=== PATIENT | female | born 1930 | race Hispanic/Latino ===

== ENCOUNTER 2017-02-27 15:25 | Inpatient (IN) | payer MEDICARE ==
--- NOTE | 2017-02-27 16:01 | ED PDOC ---
Arrival/HPI - General Chief Complaint: Back Pain Time Seen by Provider: 02/27/17 15:33 Historian: Patient - History of Present Illness Narrative History of Present Illness (Text): 02/27/17 15:51 A 87 year old female, whose past medical history includes CHF, presents to the emergency department complaining of right flank pain starting today. Patient denies of any trauma, fever, cough, chest pain, shortness of breath, or any other complaints. Also, patient mentions she intaking Warfarin medication. Past Medical History - Provider Review Nursing Documentation Reviewed: Yes - Infectious Disease Hx of Infectious Diseases: None - Reproductive Menopause: No - Cardiac Hx Cardiac Disorders: Yes Hx Cardiac Arrhythmia: Yes (Afib) Hx Congestive Heart Failure: Yes Hx Hypertension: Yes - Pulmonary Hx Respiratory Disorders: Yes Hx Chronic Obstructive Pulmonary Disease (COPD): Yes Hx Pneumonia: Yes - Neurological Hx Neurological Disorder: No - HEENT Hx HEENT Disorder: No - Renal Hx Renal Disorder: No - Endocrine/Metabolic Hx Endocrine Disorders: No - Hematological/Oncological Hx Blood Disorders: No Hx Leukemia: Yes - Integumentary Hx Dermatological Disorder: No - Musculoskeletal/Rheumatological Hx Musculoskeletal Disorders: Yes Hx Falls: Yes Hx Fractures: Yes (R elbow) - Gastrointestinal Hx Gastrointestinal Disorders: No - Genitourinary/Gynecological Hx Genitourinary Disorders: No - Psychiatric Hx Psychophysiologic Disorder: No Hx Substance Use: No - Surgical History Hx Appendectomy: Yes Hx Cholecystectomy: Yes Other/Comment: tonsillectomy - Suicidal Assessment Feels Threatened In Home Enviroment: No Family/Social History - Physician Review Nursing Documentation Reviewed: Yes Family/Social History: No Known Family HX Smoking Status: Never Smoked Hx Alcohol Use: No Hx Substance Use: No Allergies/Home Meds Allergies/Adverse Reactions: Allergies No Known Allergies Allergy (Verified 02/27/17 17:49) Home Medications: Home Meds Medication Instructions Recorded Confirmed Verapamil [Verapamil HCl] 120 mg PO TID 10/30/11 02/27/17 Warfarin [Coumadin] 5 mg PO DAILY 10/30/11 02/27/17 Albuterol Sulfate [Proair Hfa] 2 inh INH QID 07/02/15 02/27/17 Cholecalciferol (Vitamin D3) 1 tab PO DAILY 02/27/17 02/27/17 [Vitamin D3] Cyanocobalamin [Vitamin B12] 250 mcg PO DAILY 02/27/17 02/27/17 Digoxin [Lanoxin] 1 tab PO DAILY 02/27/17 02/27/17 Review of Systems - Physician Review All systems were reviewed & negative as marked: Yes - Review of Systems Constitutional: absent: Fevers, Other (denies any trauma) Respiratory: absent: SOB, Cough Cardiovascular: absent: Chest Pain Musculoskeletal: Other (right flank pain) Physical Exam Vital Signs Pulse Resp BP Pulse Ox 02/27/17 22:00 85 16 135/89 96 02/27/17 20:25 83 16 160/85 H 96 02/27/17 19:10 99 H 18 163/82 H 95 02/27/17 18:00 121 H 18 105/75 96 02/27/17 16:01 124 H 17 162/74 H 98 - Systems Exam Head: Present: Atraumatic, Normocephalic Pupils: Present: PERRL Extroacular Muscles: Present: EOMI Conjunctiva: Present: Normal Mouth: Present: Moist Mucous Membranes Neck: Present: Normal Range of Motion Respiratory/Chest: Present: Clear to Auscultation, Good Air Exchange. No: Respiratory Distress, Accessory Muscle Use Cardiovascular: Present: Regular Rate and Rhythm, Normal S1, S2. No: Murmurs Abdomen: Present: Tenderness (right flank tenderness). No: Rebound, Guarding Back: Present: Normal Inspection Upper Extremity: Present: Normal Inspection. No: Cyanosis, Edema Lower Extremity: Present: Normal Inspection. No: Edema Neurological: Present: GCS=15, CN II-XII Intact, Speech Normal Skin: Present: Warm, Dry, Normal Color. No: Rashes Psychiatric: Present: Alert, Oriented x 3, Normal Insight, Normal Concentration Medical Decision Making ED Course and Treatment: 02/27/17 15:56 Impression: 87 year old female with right flank pain. Physical exam shows right flank tenderness, no rebound or guarding. Plan: -- EKG -- Abd/Pelvis CT -- Chest X-ray -- Labs -- Urinalysis -- Tylenol -- Reassess and disposition Prior Visits: Notes and results from previous visits were reviewed. Patient was last seen in the emergency department on 07/02/2015 for hemoptysis. Patient was admitted. Progress Notes: EKG: Ordered, reviewed, and independently interpreted the EKG. Rate : 114 BPM Rhythm : Atrial Fibrillation Interpretation : No ST-segment elevations or depressions, no T-wave inversions, normal intervals. Comparison : No previous EKG for comparison. 02/27/17 17:33 noted leukoctyosis, with h/o of leukemia - Lab Interpretations Lab Results: 02/27/17 15:58 02/27/17 15:58 Lab Results 02/27/17 17:30: Urine Color Yellow, Urine Appearance Sl cloudy, Urine pH 8.0, Ur Specific Boomer 1.020, Urine Protein 100 H, Urine Glucose (UA) Negative, Urine Ketones Negative, Urine Blood Trace-intact H, Urine Nitrate Negative, Urine Bilirubin Negative, Urine Urobilinogen 4.0 H, Ur Leukocyte Esterase Small H, Urine RBC 2 - 5, Urine WBC 15 - 20, Ur Epithelial Cells 3 - 4, Amorphous Sediment Few, Urine Bacteria Many, Fine Granular Casts 0 - 2, Coarse Granular Casts Trace H, Urine Other Uyeast 02/27/17 16:50: pO2 66 H, VBG pH 7.43, VBG pCO2 44.0, VBG HCO3 29.2 H, VBG Total CO2 30.6 H, VBG O2 Sat (Calc) 97.2 H, VBG Base Excess 4.2 H, VBG Potassium 4.2, Glucose 118 H, Lactate 1.3, FiO2 21.0, Sodium 140.0, Chloride 106.0, Venous Blood Potassium 4.2 02/27/17 15:58: Direct Bilirubin 2.5 H 02/27/17 15:58: Sodium 140, Potassium 4.4, Chloride 101, Carbon Dioxide 30, Anion Gap 13, BUN 18, Creatinine 0.8, Est GFR ( Amer) > 60, Est GFR (Non- Af Amer) > 60, Random Glucose 125 H, Calcium 9.7, Magnesium 1.8, Total Bilirubin 3.5 H, AST 313 H, ALT 227 H, Alkaline Phosphatase 198 H, Lactate Dehydrogenase 1264 H, Total Creatine Kinase 72, Troponin I < 0.01 D, Total Protein 7.5, Albumin 4.4, Globulin 3.1, Albumin/Globulin Ratio 1.4, Lipase 136 02/27/17 15:58: PT 19.0 H, INR 1.73 H, APTT 36.5 02/27/17 15:58: WBC 33.9 H* D, RBC 4.97, Hgb 14.6, Hct 44.7, MCV 89.9, MCH 29.4 , MCHC 32.7, RDW 13.8, Plt Count 208, MPV 12.1 H, Gran % 21.4 L, Lymph % (Auto) 75.3 H, [place] % (Auto) 3.0, Eos % (Auto) 0.1 L, Baso % (Auto) 0.2, Gran # 7.25 H , Lymph # 25.5 H, [place] # 1.0 H, Eos # 0.1, Baso # 0.06, Neutrophils % (Manual) 20 L, Lymphocytes % (Manual) 48 H, Atypical Lymphs % 20 H, Monocytes % (Manual) 2, Platelet Evaluation Normal, Anisocytosis (manual) Slight 02/27/17 15:58: Digoxin 1.0 - RAD Interpretation Radiology Orders: 02/27/17 15:55 CHEST PORTABLE [RAD] Stat 02/27/17 15:56 ABD & PELVIS W/O PO OR IV CONT [CT] Stat 02/27/17 16:38 ABDOMEN COMPLETE [US] Stat - Medication Orders Current Medication Orders: Albuterol Sulfate (Albuterol 0.083% Inhal Ramandeep (2.5 Mg/3 Ml) Ud) 2.5 mg IH QIDRESP PRN PRN Reason: Shortness of Breath Cholecalciferol (Vitamin D) 2,000 iu PO DAILY LUCIA Cyanocobalamin (Vitamin B12 100 Mcg Tab) 250 mcg PO DAILY LUCIA Digoxin (Lanoxin) 0.125 mg PO 1400 LUCIA Sodium Chloride (Sodium Chloride 0.9%) 1,000 mls @ 60 mls/hr IV .[id number] LUCIA Last Admin: 02/27/17 23:59 Dose: 60 mls/hr eMAR Start Stop Document 02/27/17 23:59 VM (Rec: 02/27/17 23:59 [id number]) Intravenous Solution Start Date 02/27/17 Start Time 23:59 Metronidazole (Flagyl) 500 mg in 100 mls @ 100 mls/hr IVPB Q8 LUCIA PRN Reason: Protocol Last Admin: 02/28/17 06:29 Dose: 100 mls/hr eMAR Start Stop Document 02/28/17 06:29 VM (Rec: 02/28/17 06:30 [id number] Intravenous Solution Start Date 02/28/17 Start Time 06:30 End Date 02/28/17 End time 07:30 Total Infusion Time 60 Ceftriaxone Sodium 500 mg/ (Sodium Chloride) 50 mls @ 100 mls/hr IVPB Q24H LUCIA PRN Reason: Protocol Pantoprazole Sodium (Protonix Ec Tab) 40 mg PO 0600 LCUIA Last Admin: 02/28/17 06:26 Dose: 40 mg Verapamil HCl (Calan Tab) 120 mg PO TID LUCIA Warfarin Sodium (Coumadin) 5 mg PO 1800 LUCIA PRN Reason: Protocol Discontinued Medications Acetaminophen (Tylenol 325mg Tab) 975 mg PO STAT STA Stop: 02/27/17 15:58 Last Admin: 02/27/17 16:42 Dose: 975 mg Digoxin (Lanoxin) 0.125 mg PO ONCE ONE Stop: 02/28/17 00:01 Last Admin: 02/28/17 00:20 Dose: 0.125 mg MAR Apical Pulse Rate Document 02/28/17 00:20 VM (Rec: 02/28/17 00:21 VM [id number]) Apical Pulse Rate Apical Pulse Rate (60-90 beats/min) 127 Ceftriaxone Sodium 500 mg/ (Sodium Chloride) 50 mls @ 100 mls/hr IVPB STAT STA PRN Reason: Protocol Stop: 02/27/17 18:18 Last Admin: 02/27/17 18:06 Dose: 100 mls/hr eMAR Start Stop Document 02/27/17 18:06 IT (Rec: 02/27/17 18:06 IT [id number]) Intravenous Solution Start Date 02/27/17 Start Time 18:06 End Date 02/27/17 End time 18:36 Total Infusion Time 30 Metronidazole (Flagyl) 500 mg in 100 mls @ 100 mls/hr IVPB STAT STA PRN Reason: Protocol Stop: 02/27/17 19:49 Last Admin: 02/27/17 19:00 Dose: 100 mls/hr eMAR Start Stop Document 02/27/17 19:00 IT (Rec: 02/27/17 19:01 IT [id number]) Intravenous Solution Start Date 02/27/17 Start Time 19:01 End Date 02/27/17 End time 20:01 Total Infusion Time 60 Verapamil HCl (Calan Sr Tab) 120 mg PO ONCE ONE Stop: 02/28/17 00:01 Last Admin: 02/28/17 00:19 Dose: 120 mg MAR Pulse and Blood Pressure Document 02/28/17 00:19 (Rec: 02/28/17 00:20 [id number]) Pulse Pulse Rate (60-90) 127 - Scribe Statement The provider has reviewed the documentation as recorded by the [place] Gregg Provider Scribe Attestation: All medical record entries made by the Scribe were at my direction and personally dictated by me. I have reviewed the chart and agree that the record accurately reflects my personal performance of the history, physical exam, medical decision making, and the department course for this patient. I have also personally directed, reviewed, and agree with the discharge instructions and disposition. Disposition/Present on Arrival - Present on Arrival Any Indicators Present on Arrival: No History of DVT/PE: No History of Uncontrolled Diabetes: No Urinary Catheter: No History of Decub. Ulcer: No History Surgical Site Infection Following: None - Disposition Have Diagnosis and Disposition been Completed?: Yes Diagnosis: Leukocytosis, Sepsis, UTI (urinary tract infection), Elevated LFTs Disposition: HOSPITALIZED Disposition Time: 06:00 Condition: STABLE
[2017-02-27 16:08] LABS: BASO # 0.06 K/mm3 (0.0-2.0); BASO % 0.2 % (0.0-3.0); EOS # 0.1 (0.0-0.7); EOS % 0.1 % (1.5-5.0); GRAN # 7.25 (1.4-6.5); GRAN % 21.4 % (50.0-68.0); HEMATOCRIT 44.7 % (36.0-48.0); LYMPH # 25.5 (1.2-3.4); LYMPH % 75.3 % (22.0-35.0); MEAN CELL VOLUME 89.9 fl (80.0-105.0); MEAN CORPUSCULAR HEMOGLOBIN 29.4 pg (25.0-35.0); MEAN CORPUSCULAR HGB CONC 32.7 g/dl (31.0-37.0); MEAN PLATELET VOLUME 12.1 fl (7.0-11.0); PLATELET COUNT 208 10^3/uL (120.0-450.0); RED CELL DISTRIBUTION WIDTH 13.8 % (11.5-14.5)
[2017-02-27 16:11] LABS: WHITE BLOOD COUNT 33.9 10^3/ul (4.5-11.0)
[2017-02-27 16:27] LABS: TROPONIN I < 0.01 ng/mL
[2017-02-27 16:28] LABS: ALB/GLOB RATIO 1.4 (1.1-1.8); ALKALINE PHOSPHATASE 198 U/L (38-126); ALT/SGPT 227 U/L (7-56); AST/SGOT 313 U/L (14-36); BILIRUBIN,TOTAL 3.5 mg/dL (0.2-1.3); BLOOD UREA NITROGEN 18 mg/dL (7-21); CALCIUM 9.7 mg/dL (8.4-10.5); CARBON DIOXIDE 30 mmol/L (21-33); CHLORIDE 101 mmol/L (98-107); GFR AFRICAN-AMERICAN > 60; GLUCOSE,RANDOM 125 mg/dL (70-110); INR 1.73 (0.93-1.08); LIPASE 136 U/L (23-300); MAGNESIUM 1.8 mg/dL (1.7-2.2); PARTIAL THROMBOPLASTIN TIME 36.5 Seconds (25.1-36.5); POTASSIUM 4.4 mmol/L (3.6-5.0); SODIUM 140 mmol/L (132-148); TOTAL PROTEIN 7.5 g/dL (5.8-8.3)
--- NOTE | 2017-02-27 16:35 | CT ---
PROCEDURE: CT Abdomen and Pelvis without intravenous contrast HISTORY: right flank pain COMPARISON: None. TECHNIQUE: CT scan of the abdomen and pelvis was performed without intravenous administration of contrast. Oral contrast was not administered. Coronal and sagittal reformatted images were obtained. Radiation dose: Total exam DLP = 259.22 MGy-cm. This CT exam was performed using one or more of the following dose reduction techniques: Automated exposure control, adjustment of the mA and/or kV according to patient size, and/or use of iterative reconstruction technique. FINDINGS: LOWER THORAX: There is subsegmental atelectasis in the lower lobes and fibrotic changes in the peripheral lungs LIVER: Normal in size. No gross lesion or ductal dilatation. GALLBLADDER AND BILE DUCTS: Not visualized. PANCREAS: Diffuse fatty atrophy. No gross lesion or ductal dilatation. SPLEEN: Normal in size. ADRENALS: No discrete nodule. KIDNEYS AND URETERS: Normal in size without nephrolithiasis. No hydronephrosis. VASCULATURE: There are atherosclerotic aortoiliac calcifications. No aortic aneurysm. BOWEL: The small bowel loops are normal in caliber. There is large amount of stool in the colon. No bowel dilatation or obstruction. APPENDIX: No inflammatory changes in the right lower quadrant. The appendix is not distinctly identified. PERITONEUM: No free fluid. No free air. LYMPH NODES: No enlarged lymph nodes. BLADDER: Grossly normal in appearance. There is a right Hutch diverticulum. REPRODUCTIVE: Unremarkable. BONES: No acute fracture. Diffuse bone demineralization and multilevel degenerative disc disease. OTHER FINDINGS: There is a small sliding hiatal hernia. IMPRESSION: 1. No evidence of nephrolithiasis, hydronephrosis or obstructive uropathy. 2. The appendix is not distinctly identified. However no inflammatory changes in the right lower quadrant. 3. Constipation. No evidence of bowel obstruction.
--- NOTE | 2017-02-27 16:36 | RAD ---
HISTORY: abd pain COMPARISON: 07/05/2015 FINDINGS: LUNGS: The lungs are hyperinflated and there is peribronchial thickening with chronic changes in both lungs. No focal consolidation. PLEURA: No significant pleural effusion identified, no pneumothorax apparent. CARDIOVASCULAR: The heart is enlarged. Neck OSSEOUS STRUCTURES: No significant abnormalities. VISUALIZED UPPER ABDOMEN: Normal. OTHER FINDINGS: None. IMPRESSION: No active pulmonary disease. COPD. Persistent cardiomegaly.
[2017-02-27 16:38] LABS: ATYPICAL LYMPHOCYTE 20 % (0.0-0.0); NEUTROPHIL 20 % (50.0-70.0)
[2017-02-27 16:39] LABS: ANISOCYTOSIS SLIGHT; PLATELET ESTIMATE NORMAL (NORMAL)
[2017-02-27 17:08] LABS: VENOUS BLOOD GAS BASE EXCESS 4.2 mmol/L (0.0-2.0); VENOUS BLOOD PH 7.43 (7.32-7.43)
[2017-02-27 17:40] LABS: URINE BILIRUBIN NEGATIVE (NEGATIVE); URINE BLOOD TRACE-INTACT (NEGATIVE); URINE GLUCOSE (UA) NEGATIVE (NEGATIVE); URINE KETONE NEGATIVE (NEGATIVE); URINE LEUKOCYTE ESTERASE SMALL Leu/uL (NEGATIVE); URINE PROTEIN 100 mg/dL (<30 mg/dL)
[2017-02-27 17:41] LABS: URINE COLOR YELLOW (YELLOW)
[2017-02-27 17:42] LABS: URINE APPEARANCE SL CLOUDY (CLEAR)
[2017-02-27 17:44] LABS: URINE BACTERIA MANY (NEG)
[2017-02-27 17:45] LABS: URINE WBC 15 - 20 /hpf (0-6)
[2017-02-27 17:46] LABS: URINE AMORPHOUS SEDIMENT FEW
[2017-02-27] MEDS ORDERED: cefTRIAXone 500 MG in Sodium Chloride 0.9% 50 ML IVPB STA (17:49)
[2017-02-27] MEDS ORDERED: metroNIDAZOLE IV 500 mg/100 ml 500 MG/100 ML BAG IVPB STA (18:50)
[2017-02-27] MEDS: Sodium Chloride 0.9% 1,000 ML IV SCH (23:59)
[2017-02-28] MEDS ORDERED: Verapamil 120 mg ER Tab PO ONE
[2017-02-28] MEDS ORDERED: Digoxin 125 mcg (0.125 mg) Tab PO ONE
[2017-02-28] MEDS ORDERED: Albuterol 0.083% Inhal Sol (2.5 mg/3 mL) UD IH PRN (00:16)
--- NOTE | 2017-02-28 01:51 | CP.PCM.HP ---
<Carmina Teague - Last Filed: 02/28/17 02:04> History of Present Illness - History of Present Illness History of Present Illness: Carmina Teague DO PGY1 - Internal Medicine H&P CC: Right back pain x1d HPI: 87 yo F with PMH of leukemia, atrial fibrillation, COPD presents to the ER complaining of left sided back pain. Pain started at 930 AM, suddenly, while sitting reading the paper, stabbing in character, 10/10 in severity, constant, radiating to same level of abdomen anteriorly, no particular exacerbating or remitting factors, associated with nausea. She has never had this pain before. She tried taking one tylenol which did not help. She eventually called the ambulance which brought her to the ER where she received IV Abx and Tylenol which resolved her pain. Her pain is currently 0/10 in severity. She denies any bloating, vomiting, diarrhea, constipation, melena, hematochezia, hematemesis, hemoptysis, weight loss, fevers, chills, night sweats. She also denies dysuria, hematuria, urgency, frequency, or hesitancy. Of note, patient has a 1 year history of leukemia, for which she sees Dr. Alberto for monitoring. She does not and has never received any chemotherapy or radiation. PMH: As above PSH: Cholecystectomy, appendectomy, L breast mass excision Soc: Denies alcohol, tobacco, illicits FHx: Denies All: NKDA Present on Admission - Present on Admission Any Indicators Present on Admission: No Past Patient History - Infectious Disease Hx of Infectious Diseases: None - Past Social History Smoking Status: Never Smoked - CARDIAC Hx Cardiac Disorders: Yes Hx Cardia Arrhythmia: Yes (Afib) Hx Congestive Heart Failure: Yes Hx Hypercholesterolemia: Yes Hx Hypertension: Yes - PULMONARY Hx Respiratory Disorders: Yes Hx Bronchitis: Yes Hx Chronic Obstructive Pulmonary Disease (COPD): Yes Hx Pneumonia: Yes - NEUROLOGICAL Hx Neurological Disorder: No - HEENT Hx HEENT Problems: No - RENAL Hx Chronic Kidney Disease: No - ENDOCRINE/METABOLIC Hx Endocrine Disorders: No - HEMATOLOGICAL/ONCOLOGICAL Hx Blood Disorders: No - INTEGUMENTARY Hx Dermatological Problems: No - MUSCULOSKELETAL/RHEUMATOLOGICAL Hx Musculoskeletal Disorders: Yes Hx Arthritis: Yes Hx Falls: Yes Hx Fractures: Yes (R elbow) - GASTROINTESTINAL Hx Gastrointestinal Disorders: No - GENITOURINARY/GYNECOLOGICAL Hx Genitourinary Disorders: No - PSYCHIATRIC Hx Psychophysiologic Disorder: No - SURGICAL HISTORY Hx Appendectomy: Yes Hx Cholecystectomy: Yes Other/Comment: tonsillectomy Meds Allergies/Adverse Reactions: Allergies Allergy/AdvReac Type Severity Reaction Status Date / Time No Known Allergies Allergy Verified 02/27/17 17:49 Physical Exam - Constitutional Appears: Non-toxic, No Acute Distress - Head Exam Head Exam: ATRAUMATIC, NORMOCEPHALIC - Eye Exam Eye Exam: EOMI, Normal appearance. absent: Scleral icterus - ENT Exam ENT Exam: Mucous Membranes Moist - Neck Exam Neck exam: Positive for: Normal Inspection. Negative for: Lymphadenopathy - Respiratory Exam Respiratory Exam: Clear to Auscultation Bilateral, NORMAL BREATHING PATTERN - Cardiovascular Exam Cardiovascular Exam: Irregular Rhythm, +S1, +S2 - GI/Abdominal Exam GI & Abdominal Exam: Normal Bowel Sounds, Soft. absent: Distended, Firm, Guarding, Rebound, Rigid, Tenderness Additional comments: No ascites Negative nolan's sign - Extremities Exam Extremities exam: Positive for: pedal edema (1+ to mid russ). Negative for: calf tenderness - Back Exam Back exam: absent: CVA tenderness (L), CVA tenderness (R), paraspinal tenderness , tenderness, vertebral tenderness - Neurological Exam Neurological exam: Alert, CN II-XII Intact, Oriented x3 - Psychiatric Exam Psychiatric exam: Normal Affect, Normal Mood Results - Vital Signs Recent Vital Signs: Last Vital Signs Temp 97.4 F L 02/28/17 00:39 Pulse 118 H 02/28/17 00:39 Resp 20 02/28/17 00:39 BP 152/100 H 02/28/17 00:39 Pulse Ox 96 02/27/17 22:00 - Labs Result Diagrams: 02/27/17 15:58 02/27/17 15:58 Assessment & Plan - Assessment and Plan (Free Text) Assessment: 87 yo F with PMH of leukemia, atrial fibrillation, COPD presents to the ER complaining of left sided back pain, likely 2/2 hepatitis vs pyelonephritis. Also with transamitis, bacteruria, and fungiuria. Plan 1. Left sided back/abdominal pain - Pain resolved after stabilization in ER - Likely 2/2 hepatitis vs constipation vs renal colic vs pyelonephritis - CT A/P does not show any signs of nephrolithiasis or hydro/pyelonephritis; normal appearing liver, nonvisualized gallbladder; large amount of stool in the colon - Intake labs significant for marked leukocytosis (lymphocytosis), transaminemia with subtherapeutic INR on coumadin 5mg daily, 2. Transaminitis - No prior viral or autoimmune workup; ordered viral hepatitis panel, autoimmune panel, HIV - Abdominal US done; pending official read - Consulted GI, recs appreciated 3. Leukocytosis - Patient is currently afebrile; lactate 1.3 - Likely 2/2 h/o leukemia vs infectious etiology (hepatitis vs UTI) - Predominant lymphocytosis with 20% atypical lymphocytes - Patient followed by Dr. Alberto who monitors her; does not receive chemo at this time - Blood cultures ordered, pending - Urine culture ordered, pending - Continue rocephin and flagyl, as started in the ER 4. Bacteruria and fungiuria - Patient is asymptomatic - Patient received rocephin as part of treatment of possible intraabdominal infection; provides broad spectrum coverage including for UTI - ID consult requested, appreciate recs 5. Peripheral edema and cardiac history - Patient does not endorse a history of CHF but has pitting edema in b/l LE and takes several cardiac meds at home - No baseline echocardiogram available for review; ordered echo to r/o right heart failure as etiology of peripheral edema and possible congestive hepatopathy - Daily weights and strict I&O 6. h/o A fib - Continue coumadin; recheck INR daily - Currently subtherapeutic; titrate coumadin after rechecking INR - Continue verapamil and digoxin for rate control GI/DVT Ppx - Protonix and SCDs, patient also on warfarin Patient seen, discussed, and reviewed with attending <Govind Mac - Last Filed: 02/28/17 06:14> Results - Vital Signs Recent Vital Signs: Last Vital Signs Temp 97.4 F L 02/28/17 00:39 Pulse 94 H 02/28/17 02:00 Resp 20 02/28/17 00:39 BP 152/100 H 02/28/17 00:39 Pulse Ox 96 02/27/17 22:00 - Labs Result Diagrams: 02/27/17 15:58 02/27/17 15:58 Attending/Attestation - Attestation I have personally seen and examined this patient.: Yes I have fully participated in the care of the patient.: Yes I have reviewed all pertinent clinical information: Yes Notes (Text): 02/28/17 06:13 Patient was seen when she was in -02. She asked not to be intubated and not to have chest compressions . Agree with history,physical examination, assessment and plan.
[2017-02-28] MEDS: Pantoprazole 40 mg EC Tab PO SCH (06:26)
[2017-02-28] MEDS: metroNIDAZOLE IV 500 mg/100 ml 500 MG/100 ML BAG IVPB SCH ×3 (06:29→22:15)
[2017-02-28 07:32] LABS: BASO # 0.06 K/mm3 (0.0-2.0); BASO % 0.2 % (0.0-3.0); EOS # 0.2 (0.0-0.7); EOS % 0.8 % (1.5-5.0); GRAN # 4.35 (1.4-6.5); GRAN % 17.1 % (50.0-68.0); HEMATOCRIT 40.2 % (36.0-48.0); LYMPH # 19.9 (1.2-3.4); LYMPH % 78.2 % (22.0-35.0); MEAN CELL VOLUME 89.9 fl (80.0-105.0); MEAN CORPUSCULAR HEMOGLOBIN 28.6 pg (25.0-35.0); MEAN CORPUSCULAR HGB CONC 31.8 g/dl (31.0-37.0); MONO # 0.9 (0.1-0.6); MONO % 3.7 % (1.0-6.0)
[2017-02-28 08:00] LABS: ALB/GLOB RATIO 1.3 (1.1-1.8); ALKALINE PHOSPHATASE 189 U/L (38-126); ALT/SGPT 319 U/L (7-56); AST/SGOT 286 U/L (14-36); BILIRUBIN,TOTAL 2.1 mg/dL (0.2-1.3); BLOOD UREA NITROGEN 13 mg/dL (7-21); CALCIUM 8.9 mg/dL (8.4-10.5); CARBON DIOXIDE 27 mmol/L (21-33); CHLORIDE 107 mmol/L (98-107); GFR AFRICAN-AMERICAN > 60; GLUCOSE,RANDOM 79 mg/dL (70-110); MAGNESIUM 1.9 mg/dL (1.7-2.2); PHOSPHOROUS 2.8 mg/dL (2.5-4.5); SODIUM 141 mmol/L (132-148); TOTAL PROTEIN 6.3 g/dL (5.8-8.3)
[2017-02-28 08:10] LABS: INR 1.67 (0.93-1.08)
[2017-02-28 08:25] LABS: WHITE BLOOD COUNT 25.4 10^3/ul (4.5-11.0)
[2017-02-28] MEDS: cefTRIAXone 500 MG in Sodium Chloride 0.9% 50 ML IVPB SCH (10:01)
--- NOTE | 2017-02-28 11:21 | US ---
HISTORY: elevated lfts COMPARISON: None available. TECHNIQUE: Sonographic evaluation of the abdomen. FINDINGS: LIVER: Measures 13.0 cm in sagittal dimension. Echogenic liver may be seen in setting of hepatic parenchymal disease or fatty infiltration. No focal hepatic mass identified. The main portal vein appears patent with normal directional flow. No intrahepatic bile duct dilatation. GALLBLADDER: Cholecystectomy. COMMON BILE DUCT: Measures 7 mm. PANCREAS: Not well visualized. RIGHT KIDNEY: Measures 10.2 x 4.5 x 4.4cm. No obstructing calculus or hydronephrosis identified. LEFT KIDNEY: Measures 9.4 x 4.4 x 4.3cm. No obstructing calculus or hydronephrosis identified. SPLEEN: Measures approximately 11.3 cm. AORTA: Limited views appear unremarkable. IVC: Limited views appear unremarkable. OTHER FINDINGS: None. IMPRESSION: Echogenic liver may be seen in setting of hepatic parenchymal disease or fatty infiltration. Cholecystectomy. Preliminary impression was provided by virtual radiologic.
[2017-02-28] MEDS: Digoxin 125 mcg (0.125 mg) Tab PO SCH (13:29)
[2017-02-28] MEDS ORDERED: Gadodiamide 287 MG/ML VIAL (15ML) IV ONE (16:39)
--- NOTE | 2017-02-28 16:42 | CARD ---
APPROVED REPORT EXAM: Two-dimensional and M-mode echocardiogram with Doppler and color Doppler. INDICATION 2D DIMENSIONS IVSd1.1 (0.7-1.1cm)LVDd4.2 (3.9-5.9cm) PWd1.1 (0.7-1.1cm)LVDs3.7 (2.5-4.0cm) FS (%) 12.9 %LVEF (%)27.9 (>50%) M-Mode DIMENSIONS Left Atrium (MM)4.10 (2.5-4.0cm)Aortic Root2.10 (2.2-3.7cm) Aortic Cusp Exc.1.60 (1.5-2.0cm) Aortic Valve AoV Peak Rfcqntjj078.0cm/Papo Peak GR.12mmHgAI P 1/2 Cykc499ds Mitral Valve MV E Ikorhlwk682.0cm/sMV E Peak Gr.121mmHg TDI Lateral E' Peak V13.20cm/sMedial E' Peak V6.34cm/sE/Lateral E'11.6 E/Medial E'24.1 Tricuspid Valve TR Peak [id number]/sRAP [id number] Peak Gr.56mmHg [id number] LEFT VENTRICLE The left ventricle is normal size. There is normal left ventricular wall thickness. The systolic function is severely impaired. sever Septal hypokinesis A Fib RIGHT VENTRICLE The right ventricle is normal size. There is normal right ventricular wall thickness. The right ventricular systolic function is normal. ATRIA The left atrium is moderately dilated. The right atrium is moderately dilated. AORTIC VALVE The aortic valve is mildly thickened. There is mild to moderate aortic regurgitation. MITRAL VALVE The mitral valve is mildly thickened. Mitral regurgitation is moderate. TRICUSPID VALVE There is severe tricuspid regurgitation. There is severe pulmonary hypertension. GREAT VESSELS The aortic root is normal in size. The IVC was not visualized. <Conclusion> The left ventricle is normal size. There is normal left ventricular wall thickness. The systolic function is severely impaired. sever Septal hypokinesis There is mild to moderate aortic regurgitation. Mitral regurgitation is moderate. There is severe pulmonary hypertension.
--- NOTE | 2017-02-28 17:52 | MRI ---
EXAM: MR Abdomen Without Intravenous Contrast CLINICAL HISTORY: 87 years old, female; Pain; Abdominal pain; Acute; Prior surgery; Surgery date: 6+ months; Surgery type: Gall bladder removal; Additional info: Elevated lft, cbd stone TECHNIQUE: Multiplanar magnetic resonance images of the abdomen without intravenous contrast. COMPARISON: CT scan abdomen pelvis 02/27/2017. Images only. Prior report not available. Ultrasound abdomen 02/27/2017. FINDINGS: Lower thorax: Mild cardiomegaly. Liver: Hepatic steatosis. Gallbladder and bile ducts: Gallbladder is surgically absent. Diffuse intrahepatic bile duct dilatation. Multiple tiny hepatic and bile ducts cysts. Common bile duct is dilated measuring 13 mm. No pancreatic duct dilatation. Tiny intraluminal filling defect at level of distal common bile duct. Most likely distal common duct stone. Pancreas: No pancreatic head mass. Spleen: Unremarkable. No splenomegaly. Adrenals: Unremarkable. No mass. Kidneys and ureters: Right renal cortical cysts. No hydronephrosis. Stomach and bowel: Unremarkable. No obstruction. Intraperitoneal space: Unremarkable. No significant fluid collection. Soft tissues: Unremarkable. Vasculature: Unremarkable. No abdominal aortic aneurysm. Lymph nodes: Unremarkable. No enlarged lymph nodes. Other findings: Degenerative changes lumbar spine. Increased signal centrally within the spinal cord consistent with syrinx. Correlate clinically. IMPRESSION: Tiny intraluminal filling defect at level of distal common bile duct. Most likely distal common duct stone with common bile duct dilatation and diffuse intrahepatic bile duct dilatation. The appearance is concordant with CT scan of 02/27/2017. EXAM: MR Abdomen Without Intravenous Contrast, MRCP Protocol CLINICAL HISTORY: 87 years old, female; Pain; Abdominal pain; Acute; Prior surgery; Surgery date: 6+ months; Surgery type: Gall bladder removal; Additional info: Elevated lft, cbd stone TECHNIQUE: Multiplanar magnetic resonance images of the abdomen without intravenous contrast using MRCP protocol. 3D and MIP reconstructed images were created and reviewed. COMPARISON: No relevant prior studies available. FINDINGS: Lower thorax: Mild cardiomegaly. Bile ducts: Diffuse intrahepatic bile duct dilatation. Multiple tiny hepatic and bile ducts cysts. Common bile duct is dilated measuring 13 mm. No pancreatic duct dilatation. MRCP findings suggestive of distal common bile duct stone with associated common bile duct and intrahepatic bile duct dilatation. Gallbladder: Surgically absent. Liver: Hepatic steatosis. Pancreas: No pancreatic head mass. Spleen: Unremarkable. No splenomegaly. Adrenals: Unremarkable. No mass. Kidneys and ureters: Right renal cortical cysts. Degenerative changes lumbar spine. No hydronephrosis. Stomach and bowel: Unremarkable. No obstruction. Other findings: Increased signal centrally within the spinal cord consistent with syrinx. Correlate clinically. IMPRESSION: No acute findings.
[2017-02-28] MEDS: Lidocaine 5% Patch TD SCH (18:07)
[2017-02-28] MEDS: Sodium Chloride 0.9% 1,000 ML IV SCH ×2 (18:09→22:15)
--- NOTE | 2017-02-28 22:11 | CARD ---
APPROVED REPORT EKG Measurement Heart [id number] <Conclusion> Atrial fibrillation with rapid ventricular response Left bundle branch block Abnormal ECG
[2017-02-28 22:27] LABS: PH,URINE 6.5 (4.7-8.0); URINE BILIRUBIN SMALL (NEGATIVE); URINE BLOOD TRACE-INTACT (NEGATIVE); URINE GLUCOSE (UA) NEGATIVE (NEGATIVE); URINE KETONE 15 mg/dL (NEGATIVE); URINE LEUKOCYTE ESTERASE NEGATIVE Leu/uL (NEGATIVE); URINE PROTEIN >=300 mg/dL (<30 mg/dL)
[2017-02-28 22:29] LABS: URINE APPEARANCE SLIGHT-CLOUDY (CLEAR); URINE COLOR DARK YELLOW (YELLOW)
[2017-02-28 22:50] LABS: URINE BACTERIA MOD (NEG)
[2017-02-28 22:51] LABS: URINE AMORPHOUS SEDIMENT FEW
--- NOTE | 2017-03-01 01:09 | CON ---
DATE: 02/28/2017 LOCATION: The patient seen earlier today in room 371, bed 2. CHIEF COMPLAINT: Elevated WBC count x7 days. The patient also complained of right-sided back and flank pain times several days. HISTORY OF PRESENT ILLNESS: This is an 87-year-old female with history of chronic lymphocytic leukemia, atrial fibrillation, chronic obstructive lung disease, congestive heart failure, hypertension, history of cholecystectomy, and appendectomy. NO KNOWN ALLERGIES, who was admitted to the Emergency Room, was seen by Dr. Dannie Salazar in the Emergency Room with a diagnosis of pyelonephritis and LFT elevations. PAST MEDICAL HISTORY: Significant for CLL, atrial fibrillation, chronic obstructive lung disease, congestive heart failure and hypertension. PAST SURGICAL HISTORY: Significant for cholecystectomy, appendectomy. ALLERGIES: THE PATIENT HAS NO KNOWN ALLERGIES. MEDICATIONS: At home; reveals the patient to be on vitamin B12, Coumadin, Verapamil, digoxin. REVIEW OF SYSTEMS: Reviewed the patient complaining right flank pain. She denies any trauma. No fevers. No chills. There is cough mild. No chest pain except mild shortness of breath, but no diarrhea or constipation. PHYSICAL EXAMINATION VITAL SIGNS: The patient's temperature 96, blood pressure is 126/70, respiratory rate of 16, it was up to 20, heart rate of 113. HEENT: Unremarkable. NECK: Supple. LUNGS: Decreased breath sounds. HEART: Normal S1 and S2. ABDOMEN: Soft, nontender. LABORATORY DATA: Reveals a white count of 20, it was 33,900 with a 75% lymphocytosis and down to 25,000. Chemistries were reviewed. The patient does have AST elevation and ALT elevation, alk phos and elevated LDH. Urinalysis is noted at least 15 to 20 wbc's and many bacteria count is noted and microbiology noted. The patient had a chest x-ray; peribronchial thickening, no focal consolidation. CAT scan of the abdomen and pelvis which was also negative. The patient had abdominal ultrasound which is reviewed; no intrahepatic or bile duct dilatation. Common bile duct measuring 7 mm. History and physical examination is reviewed. ASSESSMENT AND PLAN: This is an 87-year-old female with chronic lymphocytic leukemia, atrial fibrillation, chronic obstructive pulmonary disease, congestive heart failure, hypertension, presenting with tachycardia and leukocytosis with sepsis with urine as a source probable gram-negative versus yeast, also to rule out gastrointestinal pathology. Currently on ceftriaxone and Flagyl. Gastrointestinal consultation is pending. We will follow closely with you. Sigifredo Rowell MD
[2017-03-01] MEDS: Pantoprazole 40 mg EC Tab PO SCH (05:27)
[2017-03-01] MEDS: metroNIDAZOLE IV 500 mg/100 ml 500 MG/100 ML BAG IVPB SCH ×3 (05:27→21:07)
[2017-03-01 07:21] LABS: BASO # 0.03 K/mm3 (0.0-2.0); BASO % 0.1 % (0.0-3.0); EOS % 0.1 % (1.5-5.0); GRAN # 8.61 (1.4-6.5); GRAN % 28.6 % (50.0-68.0); HEMATOCRIT 40.3 % (36.0-48.0); LYMPH # 20.5 (1.2-3.4); LYMPH % 68.1 % (22.0-35.0); MEAN CELL VOLUME 89.4 fl (80.0-105.0); MEAN CORPUSCULAR HEMOGLOBIN 28.8 pg (25.0-35.0); MEAN CORPUSCULAR HGB CONC 32.3 g/dl (31.0-37.0); MEAN PLATELET VOLUME 12.2 fl (7.0-11.0); MONO # 0.9 (0.1-0.6); MONO % 3.1 % (1.0-6.0); RED CELL DISTRIBUTION WIDTH 14.1 % (11.5-14.5)
[2017-03-01 07:27] LABS: ALB/GLOB RATIO 1.4 (1.1-1.8); ALKALINE PHOSPHATASE 238 U/L (38-126); ALT/SGPT 473 U/L (7-56); AST/SGOT 443 U/L (14-36); BLOOD UREA NITROGEN 12 mg/dL (7-21); CALCIUM 9.1 mg/dL (8.4-10.5); CARBON DIOXIDE 25 mmol/L (21-33); CHLORIDE 106 mmol/L (98-107); GFR AFRICAN-AMERICAN > 60; GLUCOSE,RANDOM 169 mg/dL (70-110); POTASSIUM 3.9 mmol/L (3.6-5.0); SODIUM 140 mmol/L (132-148); TOTAL PROTEIN 6.6 g/dL (5.8-8.3)
[2017-03-01 07:30] LABS: INR 1.58 (0.93-1.08)
[2017-03-01 07:58] LABS: WHITE BLOOD COUNT 30.1 10^3/ul (4.5-11.0)
[2017-03-01] MEDS ORDERED: Morphine 2 mg/ml ISec IVP PRN (08:57)
--- NOTE | 2017-03-01 09:00 | CP.PCM.PN ---
<Jolene Lester - Last Filed: 03/01/17 10:56> Subjective - Date & Time of Evaluation Date of Evaluation: 03/01/17 Time of Evaluation: 08:59 - Subjective Subjective: Jolene Lester DO,PGY-1, Hospitalist Service Patient seen and examined at bedside. Patient is complaining of 10/10 in severity RUQ pain. Patient denies any fever, chills, or night sweats. Patient was explained about findings from the MRCP. Objective - Vital Signs/Intake and Output Vital Signs (last 24 hours): Temp Pulse Resp BP Pulse Ox 97.5 F L 114 H 20 152/97 H 97 03/01/17 06:00 03/01/17 06:00 03/01/17 06:00 03/01/17 06:00 03/01/17 06:00 Intake and Output: 03/01/17 03/01/17 06:59 18:59 Intake Total 1000 Output Total 900 Balance 100 - Medications Medications: Current Medications Albuterol Sulfate (Albuterol 0.083% Inhal Ramandeep (2.5 Mg/3 Ml) Ud) 2.5 mg IH QIDRESP PRN PRN Reason: Shortness of Breath Cholecalciferol (Vitamin D) 2,000 iu PO DAILY [facility] Last Admin: 02/28/17 10:00 Dose: 2,000 iu Cyanocobalamin (Vitamin B12 100 Mcg Tab) 250 mcg PO DAILY [facility] Last Admin: 02/28/17 10:00 Dose: 250 mcg Digoxin (Lanoxin) 0.125 mg PO 1400 [facility] Last Admin: 02/28/17 13:29 Dose: 0.125 mg Sodium Chloride (Sodium Chloride 0.9%) 1,000 mls @ 60 mls/hr IV .[id number] [facility] Last Admin: 02/28/17 22:15 Dose: 60 mls/hr Metronidazole (Flagyl) 500 mg in 100 mls @ 100 mls/hr IVPB Q8 [facility] PRN Reason: Protocol Last Admin: 03/01/17 05:27 Dose: 100 mls/hr Ceftriaxone Sodium 500 mg/ (Sodium Chloride) 50 mls @ 100 mls/hr IVPB Q24H [facility] PRN Reason: Protocol Last Admin: 02/28/17 10:01 Dose: 100 mls/hr Ibuprofen (Motrin Tab) 400 mg PO Q12 PRN PRN Reason: Pain, moderate (4-7) Last Admin: 03/01/17 00:30 Dose: 400 mg Lidocaine (Lidoderm) 1 ea TD DAILY [facility] Last Admin: 02/28/17 18:07 Dose: 1 ea Morphine Sulfate (Morphine) 1 mg IVP Q4H PRN PRN Reason: Pain, severe (8-10) Pantoprazole Sodium (Protonix Ec Tab) 40 mg PO 0600 [facility] Last Admin: 03/01/17 05:27 Dose: 40 mg Verapamil HCl (Calan Tab) 120 mg PO TID [facility] Last Admin: 02/28/17 18:09 Dose: 120 mg Warfarin Sodium (Coumadin) 5 mg PO 1800 [facility] PRN Reason: Protocol Last Admin: 02/28/17 18:07 Dose: 5 mg - Labs Labs: 03/01/17 06:00 03/01/17 06:00 PT 17.5 SECONDS (9.4-12.5) H 03/01/17 06:00 INR 1.58 (0.93-1.08) H 03/01/17 06:00 APTT 36.5 Seconds (25.1-36.5) 02/27/17 15:58 - Constitutional Appears: In Acute Distress (secondary to pain) - Head Exam Head Exam: ATRAUMATIC, NORMOCEPHALIC - ENT Exam ENT Exam: Mucous Membranes Moist - Neck Exam Neck Exam: Normal Inspection - Respiratory Exam Respiratory Exam: Clear to Ausculation Bilateral, NORMAL BREATHING PATTERN - Cardiovascular Exam Cardiovascular Exam: Tachycardia, +S1, +S2 - GI/Abdominal Exam GI & Abdominal Exam: Tenderness (epigastric and RUQ). absent: Rebound - Extremities Exam Extremities Exam: Normal Inspection. absent: Normal Capillary Refill - Back Exam Back Exam: absent: CVA tenderness (L), CVA tenderness (R) Additional comments: kyphoscoliosis - Neurological Exam Neurological Exam: Alert, Awake, CN II-XII Intact, Oriented x3 - Psychiatric Exam Psychiatric exam: Normal Affect, Normal Mood - Skin Skin Exam: Dry, Intact, Normal Color, Warm Assessment and Plan - Assessment and Plan (Free Text) Assessment: 87 year old female with a past medical history of chronic lymphocytic leukemia, atrial fibrillation, CHF with EF noted to be 28%, who presented to [facility] for right sided back/flank pain. Plan: 1) Epigastric pain likely secondary to common bile duct stone/sludge/obstruction - MRCP reports: Tiny intraluminal filling defect at level of distal common bile duct. Most likely distal common duct stone with common bile duct dilatation and diffuse intrahepatic bile duct dilatation. The appearance is concordant with CT scan. - GI consulted, Dr. Tripp. - T. Bili has tripled since admission and LFTs have also risen. - Patient made NPO - Morphine 1 mg q4h PRN for severe pain. 2) History of CHF - Transthoracic Echocardiogram showed severely impaired systolic function, severe septal hypokinesis, mild to moderate aortic regurgitation, mitral regurgitation is moderate, and severe pulmonary hypertension. LVEF estimated to be 28% - Daily weight and monitor I/O - Cardiology consulted, Dr. Nj/Guru 3) Possible UTI - Patient is asymptomatic; repeat UA was negative for leukocyte esterase and urine culture, taken before empiric antibiotics were started, was negative. - Patient received rocephin as part of treatment of possible intraabdominal infection; provides broad spectrum coverage including for UTI - Infectious Disease consult appreciated 4) Atrial fibrillation - Coumadin on hold given high likelihood of patient undergoing ERCP; will check INR daily - Continue verapamil and digoxin for rate control. - Lovenox 40 mg SC 5) Leukocytosis, with lymphocyte-predominant, likely related to Chronic Lymphocytic Leukemia 6) CLL - Oncology consulted, Dr. Alberto <Brad Monk - Last Filed: 03/01/17 15:33> Objective - Vital Signs/Intake and Output Vital Signs (last 24 hours): Temp Pulse Resp BP Pulse Ox 98 F 107 H 18 137/71 97 03/01/17 12:00 03/01/17 14:00 03/01/17 12:00 03/01/17 13:50 03/01/17 06:00 Intake and Output: 03/01/17 03/01/17 06:59 18:59 Intake Total 1000 0 Output Total 900 Balance 100 0 - Medications Medications: Current Medications Albuterol Sulfate (Albuterol 0.083% Inhal Ramandeep (2.5 Mg/3 Ml) Ud) 2.5 mg IH QIDRESP PRN PRN Reason: Shortness of Breath Cholecalciferol (Vitamin D) 2,000 iu PO DAILY [facility] Last Admin: 03/01/17 09:56 Dose: 2,000 iu Cyanocobalamin (Vitamin B12 100 Mcg Tab) 250 mcg PO DAILY [facility] Last Admin: 03/01/17 10:03 Dose: 250 mcg Digoxin (Lanoxin) 0.125 mg PO 1400 [facility] Last Admin: 03/01/17 13:50 Dose: 0.125 mg Sodium Chloride (Sodium Chloride 0.9%) 1,000 mls @ 60 mls/hr IV .[id number] [facility] Last Admin: 03/01/17 10:02 Dose: 60 mls/hr Metronidazole (Flagyl) 500 mg in 100 mls @ 100 mls/hr IVPB Q8 [facility] PRN Reason: Protocol Last Admin: 03/01/17 13:57 Dose: 100 mls/hr Ceftriaxone Sodium 500 mg/ (Sodium Chloride) 50 mls @ 100 mls/hr IVPB Q24H [facility] PRN Reason: Protocol Last Admin: 03/01/17 10:02 Dose: 100 mls/hr Ibuprofen (Motrin Tab) 400 mg PO Q12 PRN PRN Reason: Pain, moderate (4-7) Last Admin: 03/01/17 00:30 Dose: 400 mg Lidocaine (Lidoderm) 1 ea TD DAILY [facility] Last Admin: 03/01/17 09:55 Dose: 1 ea Metoprolol Tartrate (Lopressor) 12.5 mg PO BID [facility] Last Admin: 03/01/17 11:44 Dose: 12.5 mg Metoprolol Tartrate (Lopressor) 5 mg IVP Q6 PRN PRN Reason: Systolic Blood Pressure Morphine Sulfate (Morphine) 1 mg IVP Q4H PRN PRN Reason: Pain, severe (8-10) Last Admin: 03/01/17 09:55 Dose: 1 mg Ondansetron HCl (Zofran Inj) 4 mg IVP Q4H PRN PRN Reason: Nausea/Vomiting Last Admin: 03/01/17 12:59 Dose: 4 mg Pantoprazole Sodium (Protonix Ec Tab) 40 mg PO 0600 [facility] Last Admin: 03/01/17 05:27 Dose: 40 mg Verapamil HCl (Calan Tab) 120 mg PO TID [facility] Last Admin: 03/01/17 13:50 Dose: 120 mg Warfarin Sodium (Coumadin) 5 mg PO 1800 [facility] PRN Reason: Protocol Last Admin: 02/28/17 18:07 Dose: 5 mg - Labs Labs: 03/01/17 06:00 03/01/17 06:00 PT 17.5 SECONDS (9.4-12.5) H 03/01/17 06:00 INR 1.58 (0.93-1.08) H 03/01/17 06:00 APTT 36.5 Seconds (25.1-36.5) 02/27/17 15:58 Attending/Attestation - Attestation I have personally seen and examined this patient.: Yes I have fully participated in the care of the patient.: Yes I have reviewed all pertinent clinical information, including history, physical exam and plan: Yes Notes (Text): 03/01/17 15:24 attending note; Patient seen ad examined with resident. Patient is a 87 year old female with a past medical history of chronic lymphocytic leukemia, atrial fibrillation, CHF with EF noted to be 28%, who presented to [facility] for right sided back pain and right upper quadrant discomfort. found to have elevated LFTs. MRCP showed dilated common bile duct with filling defect. Case discussed with Dr. Ayers in detail. Plan for ERCP tomorrow. nausea or vomiting; continue Zofran. Nothing by mouth. On low-dose IV fluids. History of A. fib; currently on Coumadin. Coumadin stopped. One dose of vitamin K given. Monitor INR tomorrow. cardiomyopathy; currently not in CHF. Echocardiogram showed ejection fraction of 28%. Cardiology evaluation with Dr. Nj requested. Atrial fibrillation; Rate controlled. Continue verapamil, metoprolol and digoxin. IV metoprolol when necessary ordered if patient cannot tolerate po meds. chronic lymphocleukemia; baseline WBC is 25-30. Case discussed with DR. Alberto in detail. 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 leukocytosis; secondary to CLL. UA is positive. urine culture, blood culture is negative.On Rocephin and Flagyl. patient is afebrile and nontoxic. monitor closely. Upon discharge the patient will follow up with PMD Dr. Clements.
[2017-03-01] MEDS ORDERED: Enoxaparin 40 mg Syringe SC ONE (09:11)
[2017-03-01] MEDS: Lidocaine 5% Patch TD SCH (09:55)
[2017-03-01] MEDS: cefTRIAXone 500 MG in Sodium Chloride 0.9% 50 ML IVPB SCH (10:02)
[2017-03-01] MEDS: Sodium Chloride 0.9% 1,000 ML IV SCH (10:02)
[2017-03-01] MEDS ORDERED: Metoprolol 1 mg/ml Inj IVP PRN (12:27)
[2017-03-01] MEDS ORDERED: Phytonadione 10 mg/ml Inj (Adult) SC ONE (13:37)
[2017-03-01] MEDS: Digoxin 125 mcg (0.125 mg) Tab PO SCH (13:50)
--- NOTE | 2017-03-01 18:36 | PN ---
DATE: 03/01/2017 SUBJECTIVE: The patient is seen in bed, in no acute distress, and nontoxic. OBJECTIVE: VITAL SIGNS: Temperature is 98, blood pressure is 150/90, respiratory rate of 20, and heart rate of 100. HEENT: Unremarkable. NECK: Supple. LUNGS: Have decreased breath sounds. HEART: Normal S1 and S2. ABDOMEN: Soft and nontender. LABORATORY DATA: Reveals a white count of 30,000, hemoglobin of 13, and platelets of 180. Chemistries are noted. LFT elevations and alk phos elevations, urinalysis is noted and microbiology reveals the blood and urine cultures are negative. The patient had an MRCP yesterday, it was read by Dr. Salvador Jimenez and it showed intraluminal filling defect at the distal common bile duct and Dr. Tripp is on consultation from GI point of view. ASSESSMENT AND PLAN: This is an 87-year-old female with chronic lymphocytic leukemia, atrial fibrillation, chronic obstructive lung disease, congestive heart failure, hypertension, admitted with sepsis with leukocytosis, tachycardia with the gastrointestinal, biliary tree is the source and the patient has had a history of cholecystectomy, common bile duct stone, and currently on ceftriaxone. Awaiting for definitive procedure from GI. The patient on ceftriaxone and Flagyl. Sigifredo Rowell MD
--- NOTE | 2017-03-01 20:29 | CP.PCM.CON ---
History of Present Illness - History of Present Illness History of Present Illness: this 87-year-old patient with a past medical history of CLL, COPD, atrial fibrillation on Coumadin admitted with the acute onset of right sided abdominal pain. The pain progressively becoming more severe intensity present to the ER. No similar episodes in the past. No history of fever no similar episodes in the past. Status post cholecystectomy. Patient has been followed by Dr. Alberto, physical education aide other past surgical history includes status post cholecystectomy, appendectomy, left breast mass excision social history denies smoking or alcohol Family history noncontributory Allergies no known drug allergy Review of Systems - Review of Systems All systems: reviewed and no additional remarkable complaints except - Constitutional Constitutional: As Per HPI. absent: Chills, Fever, Night Sweats - EENT Eyes: As Per HPI Nose/Mouth/Throat: As Per HPI - Cardiovascular Cardiovascular: absent: Chest Pain, Palpitations - Respiratory Respiratory: absent: Cough, Dyspnea, Hemoptysis - Gastrointestinal Gastrointestinal: As Per HPI - Genitourinary Genitourinary: absent: Dysuria, Urinary Urgency - Integumentary Integumentary: As Per HPI Past Patient History - Infectious Disease Hx of Infectious Diseases: None - Past Social History Smoking Status: Never Smoked - CARDIAC Hx Cardiac Disorders: Yes Hx Cardia Arrhythmia: Yes (Afib) Hx Congestive Heart Failure: Yes Hx Hypertension: Yes - PULMONARY Hx Respiratory Disorders: Yes Hx Chronic Obstructive Pulmonary Disease (COPD): Yes Hx Pneumonia: Yes - NEUROLOGICAL Hx Neurological Disorder: No - HEENT Hx HEENT Problems: No - RENAL Hx Chronic Kidney Disease: No - ENDOCRINE/METABOLIC Hx Endocrine Disorders: No - HEMATOLOGICAL/ONCOLOGICAL Hx Blood Disorders: No Hx Leukemia: Yes - INTEGUMENTARY Hx Dermatological Problems: No - MUSCULOSKELETAL/RHEUMATOLOGICAL Hx Musculoskeletal Disorders: Yes Hx Falls: Yes Hx Fractures: Yes (R elbow) - GASTROINTESTINAL Hx Gastrointestinal Disorders: No - GENITOURINARY/GYNECOLOGICAL Hx Genitourinary Disorders: No - PSYCHIATRIC Hx Psychophysiologic Disorder: No Hx Substance Use: No - SURGICAL HISTORY Hx Appendectomy: Yes Hx Cholecystectomy: Yes Other/Comment: tonsillectomy Meds Allergies/Adverse Reactions: Allergies Allergy/AdvReac Type Severity Reaction Status Date / Time No Known Allergies Allergy Verified 02/27/17 17:49 - Medications Medications: Current Medications Albuterol Sulfate (Albuterol 0.083% Inhal Ramandeep (2.5 Mg/3 Ml) Ud) 2.5 mg IH QIDRESP PRN PRN Reason: Shortness of Breath Cholecalciferol (Vitamin D) 2,000 iu PO DAILY [facility] Last Admin: 02/28/17 10:00 Dose: 2,000 iu Cyanocobalamin (Vitamin B12 100 Mcg Tab) 250 mcg PO DAILY [facility] Last Admin: 02/28/17 10:00 Dose: 250 mcg Digoxin (Lanoxin) 0.125 mg PO 1400 [facility] Last Admin: 02/28/17 13:29 Dose: 0.125 mg Sodium Chloride (Sodium Chloride 0.9%) 1,000 mls @ 60 mls/hr IV .[id number] [facility] Last Admin: 02/28/17 22:15 Dose: 60 mls/hr Metronidazole (Flagyl) 500 mg in 100 mls @ 100 mls/hr IVPB Q8 [facility] PRN Reason: Protocol Last Admin: 02/28/17 22:15 Dose: 100 mls/hr Ceftriaxone Sodium 500 mg/ (Sodium Chloride) 50 mls @ 100 mls/hr IVPB Q24H [facility] PRN Reason: Protocol Last Admin: 02/28/17 10:01 Dose: 100 mls/hr Ibuprofen (Motrin Tab) 400 mg PO Q12 PRN PRN Reason: Pain, moderate (4-7) Last Admin: 02/28/17 13:01 Dose: 400 mg Lidocaine (Lidoderm) 1 ea TD DAILY [facility] Last Admin: 02/28/17 18:07 Dose: 1 ea Pantoprazole Sodium (Protonix Ec Tab) 40 mg PO 0600 [facility] Last Admin: 02/28/17 06:26 Dose: 40 mg Verapamil HCl (Calan Tab) 120 mg PO TID [facility] Last Admin: 02/28/17 18:09 Dose: 120 mg Warfarin Sodium (Coumadin) 5 mg PO 1800 [facility] PRN Reason: Protocol Last Admin: 02/28/17 18:07 Dose: 5 mg Physical Exam - Head Exam Head Exam: NORMOCEPHALIC. absent: ATRAUMATIC - Eye Exam Eye Exam: EOMI, PERRL - ENT Exam ENT Exam: Mucous Membranes Moist, Normal Oropharynx - Neck Exam Neck exam: Positive for: Full Rom. Negative for: Lymphadenopathy - Respiratory Exam Respiratory Exam: Clear to Auscultation Bilateral, NORMAL BREATHING PATTERN - Cardiovascular Exam Cardiovascular Exam: Irregular Rhythm, +S1, +S2. absent: JVD - GI/Abdominal Exam GI & Abdominal Exam: Normal Bowel Sounds, Soft. absent: Mass, Tenderness - Extremities Exam Extremities exam: Negative for: calf tenderness, pedal edema, tenderness - Neurological Exam Neurological exam: Alert, CN II-XII Intact, Oriented x3 - Psychiatric Exam Psychiatric exam: Normal Affect, Normal Mood - Skin Skin Exam: Intact Results - Vital Signs Recent Vital Signs: Last Vital Signs Temp 96.9 F L 02/28/17 12:09 Pulse 85 02/28/17 22:00 Resp 16 02/28/17 12:09 BP 138/82 02/28/17 18:09 Pulse Ox 93 L 02/28/17 06:00 - Labs Result Diagrams: 03/01/17 06:00 03/01/17 06:00 Labs: Laboratory Results - last 24 hr 02/28/17 02/28/17 02/28/17 06:00 06:00 06:00 WBC 25.4 H* D RBC 4.47 Hgb 12.8 Hct 40.2 MCV 89.9 MCH 28.6 MCHC 31.8 RDW 14.0 Plt Count 182 MPV 12.0 H Gran % 17.1 L Lymph % (Auto) 78.2 H [place] % (Auto) 3.7 Eos % (Auto) 0.8 L Baso % (Auto) 0.2 Gran # 4.35 Lymph # 19.9 H [place] # 0.9 H Eos # 0.2 Baso # 0.06 PT 18.6 H INR 1.67 H Sodium 141 Potassium 4.0 Chloride 107 Carbon Dioxide 27 Anion Gap 10 BUN 13 Creatinine 0.8 Est GFR ( Amer) > 60 Est GFR (Non-Af Amer) > 60 Random Glucose 79 Calcium 8.9 Phosphorus 2.8 Magnesium 1.9 Total Bilirubin 2.1 H AST 286 H ALT 319 H Alkaline Phosphatase 189 H Total Protein 6.3 Albumin 3.6 Globulin 2.7 Albumin/Globulin Ratio 1.3 Urine Color Urine Appearance Urine pH Ur Specific [place] Urine Protein Urine Glucose (UA) Urine Ketones Urine Blood Urine Nitrate Urine Bilirubin Urine Urobilinogen Ur Leukocyte Esterase Urine RBC Urine WBC Ur Epithelial Cells Amorphous Sediment Urine Bacteria Hyaline Casts Fine Granular Casts 02/28/17 18:00 WBC RBC Hgb Hct MCV MCH MCHC RDW Plt Count MPV Gran % Lymph % (Auto) [place] % (Auto) Eos % (Auto) Baso % (Auto) Gran # Lymph # [place] # Eos # Baso # PT INR Sodium Potassium Chloride Carbon Dioxide Anion Gap BUN Creatinine Est GFR ( Amer) Est GFR (Non-Af Amer) Random Glucose Calcium Phosphorus Magnesium Total Bilirubin AST ALT Alkaline Phosphatase Total Protein Albumin Globulin Albumin/Globulin Ratio Urine Color Dark yellow Urine Appearance Slight-cloudy Urine pH 6.5 Ur Specific [place] 1.020 Urine Protein >=300 H Urine Glucose (UA) Negative Urine Ketones 15 H Urine Blood Trace-intact H Urine Nitrate Negative Urine Bilirubin Small H Urine Urobilinogen 4.0 H Ur Leukocyte Esterase Negative Urine RBC 5 - 10 Urine WBC 1 - 3 Ur Epithelial Cells 4 - 5 Amorphous Sediment Few Urine Bacteria Mod Hyaline Casts 0 - 2 Fine Granular Casts 0 - 2 Assessment & Plan - Assessment and Plan (Free Text) Assessment: this 87-year-old patient with the CLL admitted with the acute onset of right- sided abdominal pain patient is status post a cholecystectomy patient has elevated LFTs total bilirubin 2.2 AST 280 6R Elie phosphatase 05/28/18 189. The ultrasound scan of the abdomen showed a common bile duct 7 mm no filling defects the CT of the abdomen and pelvis was reported normal liver and no ductal dilation. The likely differential diagnoses should include a infiltrative liver disease from CLL, rule out common bile duct stone Her other comorbidities including atrial fibrillation on Coumadin R INR is elevated to 1.67., Coronary artery disease COPD congestive heart failure and hypertension Patient has leukocytosis predominantly lymphocytes but in view of her abdominal pain difficult to rule out the underlying infective process or shadowed by CLL. Patient is also immunocompromised in view of the CLL status Plan: 1. Follow-up the cultures 2. Continue antibiotics as per ID 3. Follow-up LFTs 4. Hematology for evaluation 5. MRCP to rule out any CBD stone The patient was seen and evaluated here earlier and also dscussed with the Dr. Monk.
--- NOTE | 2017-03-01 21:16 | PN ---
SUBJECTIVE: This patient was seen and evaluated earlier today. Patient is comfortable, jaundiced deeply now. PHYSICAL EXAMINATION VITAL SIGNS: Temperature 98.1, blood pressure 132/65, pulse 61, respirations 19, O2 saturation 97%. HEENT: Atraumatic, jaundiced. NECK: Supple. HEART: S1, S2 heard. LUNGS: Bilateral air entry present. ABDOMEN: Soft. There is minimal tenderness on deep palpation of the right upper quadrant area, otherwise, unremarkable. EXTREMITIES: No edema. No cyanosis. NEUROLOGIC: Alert, oriented, moves all the extremities. LABORATORY DATA: WBC count 30.1, hemoglobin 13, hematocrit 40.3, platelets 180. Chemistry shows total bilirubin 6.0, AST 443, ALT 473, alkaline phosphatase 238. MRCP reported as stones in the distal CBD. Common bile duct measure up to 13 mm. Patient was on Coumadin and INR is elevated 1.67 and today 1.58. IMPRESSION: An 87-year-old patient with chronic lymphocytic leukemia, cardiomyopathy, congestive heart failure, atrial fibrillation, admitted with elevated liver function tests. MRCP shows possible stone in the distal common bile duct. Patient is scheduled for the EUS, ERCP tomorrow. Patient has an elevated INR and her Coumadin is on hold and given vitamin K 5 mg today. Followup the INR tomorrow. Followup with the Cardiology and hematological evaluation. Continue the antibiotic ceftriaxone and Flagyl as recommended by the ID. Thank you very much for allowing us to participate in the care of the patient. Hu Tripp MD
--- NOTE | 2017-03-01 22:46 | CON ---
DATE: 03/01/2017 Cardiology consultation (Dr. Roselyn Nj). HISTORY OF PRESENT ILLNESS: The patient is an 87-year-old woman who presents with flank pain and fevers. Cardiology was asked to see the patient for clearance for endoscopic procedures. The patient's past medical history includes chronic atrial fibrillation in which she has been treated with Verapamil and Coumadin. The patient does suffer from exertional shortness of breath and is able to climb approximately one flight of stairs, negative edema in the lower extremities, negative angina. The patient denies previous myocardial infarction or coronary artery disease. She does suffer from hypertension. Negative diabetes mellitus. SOCIAL HISTORY: She is a former smoker. REVIEW OF SYSTEMS: A 14 point review of systems was reviewed in detail. No additional cardiac symptomatology is noted. PHYSICAL EXAMINATION: VITAL SIGNS: Blood pressure 152/97, heart rate is atrial fibrillation approximately 100. NECK: Negative JVD. LUNGS: Decreased breath sounds bilaterally. HEART: Reveal S1, S2. EXTREMITIES: Without edema. EKG shows atrial fibrillation with an IVCD with diffuse ST-T changes. LABORATORY DATA: INR is 1.58. Chemistries, LFTs are elevated. Hemoglobin is 13.0 with a white count of 30.1. Echocardiogram reveals an ejection fraction of 27% with severe pulmonary hypertension. IMPRESSION: 1. Sepsis. 2. Elevated liver function tests. 3. Severely dilated left ventricle function. 4. Severe pulmonary hypertension. 5. Atrial fibrillation. 6. Hypertension. Given these findings, the patient's risk for any anesthesia is high, given her severe pulmonary hypertension and her severely dilated cardiomyopathy. Her atrial fibrillation will need to be better controlled and we will add beta-blockers to her regimen. The patient is currently on antibiotics. Nathaniel Marquez MD
[2017-03-02] MEDS: Sodium Chloride 0.9% 1,000 ML IV SCH (05:31)
[2017-03-02] MEDS: Pantoprazole 40 mg EC Tab PO SCH (05:53)
[2017-03-02] MEDS: metroNIDAZOLE IV 500 mg/100 ml 500 MG/100 ML BAG IVPB SCH (05:53)
[2017-03-02 07:20] LABS: BASO # 0.06 K/mm3 (0.0-2.0); BASO % 0.2 % (0.0-3.0); EOS # 0.1 (0.0-0.7); EOS % 0.2 % (1.5-5.0); GRAN # 10.66 (1.4-6.5); GRAN % 32.5 % (50.0-68.0); HEMATOCRIT 39.3 % (36.0-48.0); LYMPH # 20.7 (1.2-3.4); LYMPH % 63.1 % (22.0-35.0); MEAN CELL VOLUME 90.3 fl (80.0-105.0); MEAN CORPUSCULAR HEMOGLOBIN 28.7 pg (25.0-35.0); MEAN CORPUSCULAR HGB CONC 31.8 g/dl (31.0-37.0); MEAN PLATELET VOLUME 12.4 fl (7.0-11.0); MONO # 1.3 (0.1-0.6); RED CELL DISTRIBUTION WIDTH 14.5 % (11.5-14.5)
[2017-03-02 07:29] LABS: INR 1.77 (0.93-1.08)
[2017-03-02 07:30] LABS: WHITE BLOOD COUNT 32.8 10^3/ul (4.5-11.0)
[2017-03-02 08:02] LABS: ALB/GLOB RATIO 1.3 (1.1-1.8); ALKALINE PHOSPHATASE 208 U/L (38-126); ALT/SGPT 346 U/L (7-56); AST/SGOT 171 U/L (14-36); BILIRUBIN,TOTAL 2.5 mg/dL (0.2-1.3); BLOOD UREA NITROGEN 16 mg/dL (7-21); CARBON DIOXIDE 25 mmol/L (21-33); CHLORIDE 109 mmol/L (98-107); GFR AFRICAN-AMERICAN > 60; GLUCOSE,RANDOM 109 mg/dL (70-110); POTASSIUM 4.4 mmol/L (3.6-5.0); SODIUM 140 mmol/L (132-148)
[2017-03-02 09:08] LABS: ARTERIAL BLOOD GAS HCO3 20.5 mmol/L (21-28); ARTERIAL BLOOD GAS O2 CAPACITY 19.3 mL/dl (16-24); ARTERIAL BLOOD GAS O2 CONTENT 19.3 ML/dl (15-23); ARTERIAL BLOOD GAS PH 7.23 (7.35-7.45); ARTERIAL BLOOD HGB O2 SAT 95.3 % (95.0-98.0); CARBOXYHEMOGLOBIN 3.3 % (0.5-1.5); HHB 0.1 % (0-5); METHEMOGLOBIN 1.3 % (0.0-3.0)
[2017-03-02] MEDS ORDERED: Vancomycin 1gm in NS 250ml 1 GM/250 ML BAG IVPB SCH (09:45)
--- NOTE | 2017-03-02 10:03 | RAD ---
HISTORY: dyspnea COMPARISON: Portable chest 02/27/2017. FINDINGS: LUNGS: No active pulmonary disease. PLEURA: Limited left pleural effusion has developed with none at the right. No pneumothorax. CARDIOVASCULAR: Cardiomegaly and pulmonary venous congestion appears to have intervened including Romaine B-lines, cephalization and otherwise increase interstitial markings. OSSEOUS STRUCTURES: No significant abnormalities. VISUALIZED UPPER ABDOMEN: Normal. OTHER FINDINGS: None. IMPRESSION: Moderate active CHF. No definitive infiltrates. Smaller pleural effusion developing.
[2017-03-02 10:25] LABS: MAGNESIUM 1.8 mg/dL (1.7-2.2)
[2017-03-02] MEDS: Piperacill/Tazo 4.5gm in NS 4.5 GM/100 ML BAG IVPB SCH ×2 (11:47→17:40)
[2017-03-02] MEDS: Lidocaine 5% Patch TD SCH (11:59)
[2017-03-02] MEDS: Digoxin 125 mcg (0.125 mg) Tab PO SCH (15:02)
[2017-03-02 15:06] VITALS: PULSE 74
--- NOTE | 2017-03-02 17:27 | CP.PCM.PN ---
<HoCarmina - Last Filed: 03/02/17 17:22> Subjective - Date & Time of Evaluation Date of Evaluation: 03/02/17 Time of Evaluation: 08:30 - Subjective Subjective: Carmina Teague DO PGY1 - Internal Medicine Progress Note Patient seen and examined at bedside. No events overnight. When initially evaluated this AM, patient was comfortable, breathing easy, with no particular complaints. Later in the morning, nurses noted that she was in respiratory distress, breathing rapidly and hypoxic on room air. Stat CXR and ABG was obtained, and patient was given stat dose of lasix and started on BIPAP with subsequent improvement in her dyspnea and oxygenation. On ROS, patient reports that he abdominal pain and back pain have resolved. She also reports a normal appetite. She denies nausea, vomiting. Objective - Vital Signs/Intake and Output Vital Signs (last 24 hours): Temp Pulse Resp BP Pulse Ox 98.5 F 74 18 141/68 93 L 03/02/17 06:00 03/02/17 15:03 03/02/17 06:00 03/02/17 15:03 03/02/17 06:00 Intake and Output: 03/02/17 03/02/17 06:59 18:59 Intake Total 120 800 Output Total 600 Balance -480 800 - Medications Medications: Current Medications Albuterol Sulfate (Albuterol 0.083% Inhal Ramandeep (2.5 Mg/3 Ml) Ud) 2.5 mg IH QIDRESP PRN PRN Reason: Shortness of Breath Last Admin: 03/02/17 08:02 Dose: 2.5 mg Carvedilol (Coreg) 3.125 mg PO BID [facility] Cholecalciferol (Vitamin D) 2,000 iu PO DAILY [facility] Last Admin: 03/02/17 11:40 Dose: 2,000 iu Cyanocobalamin (Vitamin B12 100 Mcg Tab) 250 mcg PO DAILY [facility] Last Admin: 03/02/17 11:43 Dose: 250 mcg Digoxin (Lanoxin) 0.125 mg PO 1400 [facility] Last Admin: 03/02/17 15:02 Dose: 0.125 mg Furosemide (Lasix) 40 mg IV ONCE ONE Stop: 03/03/17 10:01 Furosemide (Lasix) 40 mg PO DAILY [facility] Vancomycin HCl (Vancomycin 1gm) 1 gm in 250 mls @ 167 mls/hr IVPB Q12H [facility] PRN Reason: Protocol Last Admin: 03/02/17 11:48 Dose: 167 mls/hr Ibuprofen (Motrin Tab) 400 mg PO Q12 PRN PRN Reason: Pain, moderate (4-7) Last Admin: 03/01/17 00:30 Dose: 400 mg Lidocaine (Lidoderm) 1 ea TD DAILY [facility] Last Admin: 03/02/17 11:59 Dose: 1 ea Lisinopril (Zestril) 2.5 mg PO DAILY [facility] Metoprolol Tartrate (Lopressor) 5 mg IVP Q6 PRN PRN Reason: Systolic Blood Pressure Last Admin: 03/02/17 08:00 Dose: 5 mg Morphine Sulfate (Morphine) 1 mg IVP Q4H PRN PRN Reason: Pain, severe (8-10) Last Admin: 03/01/17 09:55 Dose: 1 mg Ondansetron HCl (Zofran Inj) 4 mg IVP Q4H PRN PRN Reason: Nausea/Vomiting Last Admin: 03/02/17 11:40 Dose: 4 mg Pantoprazole Sodium (Protonix Ec Tab) 40 mg PO 0600 [facility] Last Admin: 03/02/17 05:53 Dose: 40 mg Verapamil HCl (Calan Tab) 120 mg PO TID [facility] Last Admin: 03/02/17 15:03 Dose: 120 mg - Labs Labs: 03/02/17 07:00 03/02/17 07:00 PT 19.7 SECONDS (9.4-12.5) H 03/02/17 07:00 INR 1.77 (0.93-1.08) H 03/02/17 07:00 APTT 36.5 Seconds (25.1-36.5) 02/27/17 15:58 - Constitutional Appears: Non-toxic, No Acute Distress - Head Exam Head Exam: ATRAUMATIC, NORMOCEPHALIC - Eye Exam Eye Exam: EOMI, Normal appearance, PERRL - ENT Exam ENT Exam: Mucous Membranes Dry - Neck Exam Neck Exam: Normal Inspection - Respiratory Exam Additional comments: Patient had mild bibasilar crackles on exam in AM. Was noted to be in respiratory distress later, which resolved after lasix and BIPAP - Cardiovascular Exam Cardiovascular Exam: Tachycardia, Irregular Rhythm - GI/Abdominal Exam GI & Abdominal Exam: Soft, Normal Bowel Sounds. absent: Guarding, Rigid, Tenderness, Organomegaly, Rebound - Extremities Exam Extremities Exam: absent: Calf Tenderness, Pedal Edema - Neurological Exam Neurological Exam: Alert, Awake, Oriented x3 - Psychiatric Exam Psychiatric exam: Normal Affect, Normal Mood - Skin Skin Exam: Dry, Intact Assessment and Plan - Assessment and Plan (Free Text) Assessment: 87 year old female with a past medical history of chronic lymphocytic leukemia, atrial fibrillation, CHF with EF noted to be 28%, who presented to [facility] for right sided back/flank pain. Active treatment for transaminitis 2/2 CBD obstruction, leukocytosis, CHF, and afib Plan: 1) Epigastric pain likely secondary to common bile duct stone/sludge/obstruction - MRCP yesterday showed CBD obstruction - Patient was scheduled for EUS/ERCP today, but had episode of respiratory distress today 2/2 fluid overload, so ERCP postponed - Patient tolerating clear liquid diet, continue for now - Continue IV Abx; ID on consult, appreciate recs - Morphine 1 mg q4h PRN for severe pain. - GI on consult, appreciate recs. 2) Transaminitis - Likely 2/2 CBD obstruction as seen on MRCP - LFT fluctuating, significantly elevated yesterday, but now trending down today ; continue to monitor - Viral hepatitis panel negative - HIV screen negative - DEXTER negative - Anti-smooth muscle antibody and LKM pending 3) History of CHF - Transthoracic Echocardiogram showed severely impaired systolic function, severe septal hypokinesis, mild to moderate aortic regurgitation, mitral regurgitation is moderate, and severe pulmonary hypertension. LVEF estimated to be 28% - Patient had episode of respiratory distress today, 2/2 fluid overload; improved after holding fluids, lasix administration, and applying BIPAP - Daily weight and monitor I/O - Cardiology on consult, appreciate recs 4) Possible UTI - UCx remains negative; no fungiuria on repeat UA; initial bacteruiria likely contaminants - Patient is asymptomatic; unlikely to have urinary tract infection as source of or contributing to leukocytosis 5) Atrial fibrillation - Hold coumadin for possible ERCP; check INR daily - Continue metoprolol, verapamil, and digoxin for rate control. - Cardiology on consult, appreciate recs 6) Leukocytosis, with lymphocyte-predominance, likely 2/2 to Chronic Lymphocytic Leukemia - Patient remains afebrile - Oncology consulted, Dr. Alberto GI/DVT Ppx - Protonix, SCDs Patient seen, discussed, and reviewed with attending <Jenny Oliver - Last Filed: 03/02/17 21:38> Objective - Vital Signs/Intake and Output Vital Signs (last 24 hours): Temp Pulse Resp BP Pulse Ox 98.2 F 65 17 136/63 99 03/02/17 16:00 03/02/17 18:00 03/02/17 16:00 03/02/17 17:39 03/02/17 16:00 Intake and Output: 03/02/17 03/03/17 18:59 06:59 Intake Total 800 Balance 800 - Medications Medications: Current Medications Albuterol Sulfate (Albuterol 0.083% Inhal Ramandeep (2.5 Mg/3 Ml) Ud) 2.5 mg IH QIDRESP PRN PRN Reason: Shortness of Breath Last Admin: 03/02/17 08:02 Dose: 2.5 mg Carvedilol (Coreg) 3.125 mg PO BID [facility] Cholecalciferol (Vitamin D) 2,000 iu PO DAILY [facility] Last Admin: 03/02/17 11:40 Dose: 2,000 iu Cyanocobalamin (Vitamin B12 100 Mcg Tab) 250 mcg PO DAILY [facility] Last Admin: 03/02/17 11:43 Dose: 250 mcg Digoxin (Lanoxin) 0.125 mg PO 1400 [facility] Last Admin: 03/02/17 15:02 Dose: 0.125 mg Furosemide (Lasix) 40 mg IV ONCE ONE Stop: 03/03/17 10:01 Furosemide (Lasix) 40 mg PO DAILY [facility] Ceftriaxone Sodium (Rocephin 1 Gram Ivpb (D5w)) 1 gm in 100 mls @ 100 mls/hr IVPB DAILY [facility] PRN Reason: Protocol Last Admin: 03/02/17 20:16 Dose: 100 mls/hr Ibuprofen (Motrin Tab) 400 mg PO Q12 PRN PRN Reason: Pain, moderate (4-7) Last Admin: 03/01/17 00:30 Dose: 400 mg Lidocaine (Lidoderm) 1 ea TD DAILY [facility] Last Admin: 03/02/17 11:59 Dose: 1 ea Lisinopril (Zestril) 2.5 mg PO DAILY [facility] Metoprolol Tartrate (Lopressor) 5 mg IVP Q6 PRN PRN Reason: Systolic Blood Pressure Last Admin: 03/02/17 08:00 Dose: 5 mg Metronidazole (Flagyl) 500 mg PO Q8 [facility] PRN Reason: Protocol Morphine Sulfate (Morphine) 1 mg IVP Q4H PRN PRN Reason: Pain, severe (8-10) Last Admin: 03/01/17 09:55 Dose: 1 mg Ondansetron HCl (Zofran Inj) 4 mg IVP Q4H PRN PRN Reason: Nausea/Vomiting Last Admin: 03/02/17 11:40 Dose: 4 mg Pantoprazole Sodium (Protonix Ec Tab) 40 mg PO 0600 [facility] Last Admin: 03/02/17 05:53 Dose: 40 mg Verapamil HCl (Calan Tab) 120 mg PO TID [facility] Last Admin: 03/02/17 15:03 Dose: 120 mg - Labs Labs: 03/02/17 07:00 03/02/17 07:00 PT 19.7 SECONDS (9.4-12.5) H 03/02/17 07:00 INR 1.77 (0.93-1.08) H 03/02/17 07:00 APTT 36.5 Seconds (25.1-36.5) 02/27/17 15:58 Attending/Attestation - Attestation I have personally seen and examined this patient.: Yes I have fully participated in the care of the patient.: Yes I have reviewed all pertinent clinical information, including history, physical exam and plan: Yes Notes (Text): 03/02/17 21:32 87 year old female with past medical history of CLL, afib, and CHF who presented with right sided flank and abdominal pain. CT abd/pelvis and MRCP reviewed with likely CBD stone. GI is following. Will continue to monitor LFTs. Plan was for EUS/ERCP today. However this morning patient experienced respiratory distress secondary to CHF. Symptoms improved with iv lasix and bipap. Cardiology follow up was appreciated. Will discuss with Dr. Tripp and Dr. Nj. Coumadin is on hold for now for possible GI procedure as above. Leukocytosis noted; patient has history of CLL. She is on antibiotics. Hematology evaluation was requested. Jenny Oliver MD Hospitalist.
--- NOTE | 2017-03-02 17:30 | CP.PCM.PN ---
Subjective - Date & Time of Evaluation Date of Evaluation: 03/02/17 Time of Evaluation: 10:50 - Subjective Subjective: Patient was ERCP today but developed shortness of breath and was found to be in CHF No fevers overnight, no abdominal pain ,no diarrhea. Objective - Vital Signs/Intake and Output Vital Signs (last 24 hours): Temp Pulse Resp BP Pulse Ox 98.5 F 98 H 18 157/92 H 93 L 03/02/17 06:00 03/02/17 09:17 03/02/17 06:00 03/02/17 08:44 03/02/17 06:00 Intake and Output: 03/02/17 03/02/17 06:59 18:59 Intake Total 120 800 Output Total 600 Balance -480 800 - Medications Medications: Current Medications Albuterol Sulfate (Albuterol 0.083% Inhal Ramandeep (2.5 Mg/3 Ml) Ud) 2.5 mg IH QIDRESP PRN PRN Reason: Shortness of Breath Last Admin: 03/02/17 08:02 Dose: 2.5 mg Cholecalciferol (Vitamin D) 2,000 iu PO DAILY [facility] Last Admin: 03/01/17 09:56 Dose: 2,000 iu Cyanocobalamin (Vitamin B12 100 Mcg Tab) 250 mcg PO DAILY [facility] Last Admin: 03/01/17 10:03 Dose: 250 mcg Digoxin (Lanoxin) 0.125 mg PO 1400 [facility] Last Admin: 03/01/17 13:50 Dose: 0.125 mg Piperacillin Sod/Tazobactam Sod (Zosyn 4.5 Gm In Ns 100ml) 4.5 gm in 100 mls @ 200 mls/hr IVPB Q8 [facility] PRN Reason: Protocol Stop: 03/02/17 14:29 Vancomycin HCl (Vancomycin 1gm) 1 gm in 250 mls @ 167 mls/hr IVPB Q12H [facility] PRN Reason: Protocol Ibuprofen (Motrin Tab) 400 mg PO Q12 PRN PRN Reason: Pain, moderate (4-7) Last Admin: 03/01/17 00:30 Dose: 400 mg Lidocaine (Lidoderm) 1 ea TD DAILY [facility] Last Admin: 03/01/17 09:55 Dose: 1 ea Metoprolol Tartrate (Lopressor) 12.5 mg PO BID [facility] Last Admin: 03/01/17 17:50 Dose: Not Given Metoprolol Tartrate (Lopressor) 5 mg IVP Q6 PRN PRN Reason: Systolic Blood Pressure Last Admin: 03/02/17 08:00 Dose: 5 mg Morphine Sulfate (Morphine) 1 mg IVP Q4H PRN PRN Reason: Pain, severe (8-10) Last Admin: 03/01/17 09:55 Dose: 1 mg Ondansetron HCl (Zofran Inj) 4 mg IVP Q4H PRN PRN Reason: Nausea/Vomiting Last Admin: 03/01/17 21:07 Dose: 4 mg Pantoprazole Sodium (Protonix Ec Tab) 40 mg PO 0600 [facility] Last Admin: 03/02/17 05:53 Dose: 40 mg Verapamil HCl (Calan Tab) 120 mg PO TID [facility] Last Admin: 03/01/17 17:49 Dose: Not Given - Labs Labs: 03/02/17 07:00 03/02/17 07:00 PT 19.7 SECONDS (9.4-12.5) H 03/02/17 07:00 INR 1.77 (0.93-1.08) H 03/02/17 07:00 APTT 36.5 Seconds (25.1-36.5) 02/27/17 15:58 - Constitutional Appears: Non-toxic - Head Exam Head Exam: NORMAL INSPECTION - Neck Exam Neck Exam: absent: Meningismus - Respiratory Exam Respiratory Exam: Decreased Breath Sounds - Cardiovascular Exam Cardiovascular Exam: +S1, +S2 - GI/Abdominal Exam GI & Abdominal Exam: Soft. absent: Tenderness Assessment and Plan - Assessment and Plan (Free Text) Plan: Assessment Consider sepsis due to biliary tract disease in a patient with a history of cholecystectomy S/P appendectomy COPD atrial fibrillation leukemia Plan Continue Rocephin and Flagyl (patient was given Vancomycin); follow up plan for ERCP will monitor clinically
--- NOTE | 2017-03-02 19:54 | PN ---
DATE: 03/02/2017 REASON FOR CONSULTATION AND FOLLOWUP: Preop evaluation stratification for medical clearance for endoscopy. SUBJECTIVE: The patient denies any chest pain, shortness of breath or any palpitation. Complaint of pain in right upper quadrant mainly in the lumber area. OBJECTIVE: GENERAL: Lying flat in the bed. Not in apparent distress. Getting IV fluid 80 mL an hour. VITAL SIGNS: As follows, temperature afebrile, heart rate 105, blood pressure 156/87. HEENT: PERRLA intact. NECK: Supple. No carotid bruit or thyromegaly. CHEST: Clear to auscultation. HEART: S1, S2 regular. ABDOMEN: Soft. EXTREMITIES: Clubbing and cyanosis negative. LABORATORY DATA: EKG shows AFib with rate 98. Blood workup as follows, WBC 32.8, hemoglobin 12.5, hematocrit 39.3, platelet count 165. Sodium 140, potassium 4.4, chloride 109, carbon dioxide 20, anion gap of 11, BUN 16, creatinine 0.9. BNP 5070. IMPRESSION: Abnormal liver function tests, rule out pyelonephritis, hypertension, chronic atrial fibrillation on anticoagulation, hypertension at home verapamil. Most recent echo yesterday shows severely impaired ejection fraction calculated 27%, [id number] aortic regurgitation, moderate mitral regurgitation, severe PA pressure reported at 66. RECOMMENDATIONS: Discontinue IV fluid. Give 40 of Lasix because of the patient appears to be congested. Continue verapamil. Continue metoprolol, if needed to control the heart rate. The patient is okay to go for endoscopy, once her endoscopy done, the patient restarted anticoagulation. Elevated with most likely sepsis, rule out pyelonephritis. We will get ultrasound of the abdomen, pelvis to rule out pyelonephritis. Ultrasound reviewed, no evidence of left hydronephrosis, also no evidence of right hydronephrosis noted. Continue GI workup. The patient is cleared from Cardiology point. We will go for GI workup. Once the GI workup is done. Coumadin to be restarted. We will follow with you. Thank you Dr. Monk, for providing us the opportunity in taking care of the patient, Mirian Amaral. We will follow with you. Because of the low LV function. We will also put low dose p.o. of Lasix daily. Discontinue IV fluid. We will start tomorrow one dose of Lasix and we will start day after tomorrow Lasix daily. We will follow with you. We will put low dose ANTOLIN inhibitor as blood pressure is tolerated and as renal function is tolerated. I will put Coreg 3.125, lisinopril and Lasix and we will discontinue metoprolol. Now, we will start the tapering for the heart failure. Once the GI workup is done, we will resume back Coumadin and they will start Coreg, Lasix and lisinopril for heart failure treatment therapy and we will sent the blood workup for TSH, lipid profile, and hemoglobin A1c if it is not done yet. We will follow with you. Roselyn Nj MD
[2017-03-02] MEDS: cefTRIAXone 1 gm 1 GM/100 ML BAG IVPB SCH (20:16)
[2017-03-03] MEDS: Pantoprazole 40 mg EC Tab PO SCH (05:32)
[2017-03-03 06:33] LABS: BASO # 0.05 K/mm3 (0.0-2.0); BASO % 0.2 % (0.0-3.0); EOS # 0.1 (0.0-0.7); EOS % 0.5 % (1.5-5.0); GRAN # 7.8 (1.4-6.5); GRAN % 31.4 % (50.0-68.0); LYMPH # 15.7 (1.2-3.4); MEAN CELL VOLUME 91.3 fl (80.0-105.0); MEAN CORPUSCULAR HEMOGLOBIN 28.8 pg (25.0-35.0); MEAN CORPUSCULAR HGB CONC 31.6 g/dl (31.0-37.0); MEAN PLATELET VOLUME 12.5 fl (7.0-11.0); MONO # 1.2 (0.1-0.6); MONO % 4.9 % (1.0-6.0); RED CELL DISTRIBUTION WIDTH 14.6 % (11.5-14.5); WHITE BLOOD COUNT 24.9 10^3/ul (4.5-11.0)
[2017-03-03 06:47] LABS: ALB/GLOB RATIO 1.2 (1.1-1.8); ALKALINE PHOSPHATASE 160 U/L (38-126); ALT/SGPT 248 U/L (7-56); AST/SGOT 99 U/L (14-36); BILIRUBIN,TOTAL 1.4 mg/dL (0.2-1.3); BLOOD UREA NITROGEN 18 mg/dL (7-21); CALCIUM 8.7 mg/dL (8.4-10.5); CARBON DIOXIDE 35 mmol/L (21-33); CHLORIDE 102 mmol/L (98-107); CHOLESTEROL 157 mg/dL (130-200); GFR AFRICAN-AMERICAN > 60; GLUCOSE,RANDOM 96 mg/dL (70-110); MAGNESIUM 1.6 mg/dL (1.7-2.2); PHOSPHOROUS 2.5 mg/dL (2.5-4.5); POTASSIUM 3.6 mmol/L (3.6-5.0); SODIUM 140 mmol/L (132-148); TOTAL PROTEIN 5.5 g/dL (5.8-8.3)
[2017-03-03 06:48] LABS: INR 1.3 (0.93-1.08)
[2017-03-03] MEDS ORDERED: Magnesium Sulfate 1 gm in D5W 1 GM/100 ML BAG IVPB ONE (06:56)
--- NOTE | 2017-03-03 08:57 | CP.PCM.PN ---
<Carmina Teague - Last Filed: 03/03/17 13:51> Subjective - Date & Time of Evaluation Date of Evaluation: 03/03/17 Time of Evaluation: 07:30 - Subjective Subjective: Carmina Teague DO PGY1 - Internal Medicine Progress Note Patient seen and examined at bedside. No events overnight. Patient now denies any shortness of breath, nausea, vomiting, diarrhea. She is no longer having any abdominal pain or back pain. She has not yet had a bowel movement. Her ERCP was postponed yesterday because of an episode of respiratory distress. She is to be seen again today by GI, plan for ERCP tomorrow. Objective - Vital Signs/Intake and Output Vital Signs (last 24 hours): Temp Pulse Resp BP Pulse Ox 98.3 F 118 H 19 140/88 98 03/03/17 06:00 03/03/17 06:00 03/03/17 06:00 03/03/17 06:00 03/03/17 06:00 Intake and Output: 03/03/17 03/03/17 06:59 18:59 Intake Total 0 Output Total 1400 Balance -1400 - Medications Medications: Current Medications Albuterol Sulfate (Albuterol 0.083% Inhal Ramandeep (2.5 Mg/3 Ml) Ud) 2.5 mg IH QIDRESP PRN PRN Reason: Shortness of Breath Last Admin: 03/02/17 08:02 Dose: 2.5 mg Carvedilol (Coreg) 3.125 mg PO BID [facility] Last Admin: 03/02/17 22:56 Dose: Not Given Cholecalciferol (Vitamin D) 2,000 iu PO DAILY [facility] Last Admin: 03/02/17 11:40 Dose: 2,000 iu Cyanocobalamin (Vitamin B12 100 Mcg Tab) 250 mcg PO DAILY [facility] Last Admin: 03/02/17 11:43 Dose: 250 mcg Digoxin (Lanoxin) 0.125 mg PO 1400 [facility] Last Admin: 03/02/17 15:02 Dose: 0.125 mg Furosemide (Lasix) 40 mg IV ONCE ONE Stop: 03/03/17 10:01 Furosemide (Lasix) 40 mg PO DAILY [facility] Ceftriaxone Sodium (Rocephin 1 Gram Ivpb (D5w)) 1 gm in 100 mls @ 100 mls/hr IVPB DAILY [facility] PRN Reason: Protocol Last Admin: 03/02/17 20:16 Dose: 100 mls/hr Ibuprofen (Motrin Tab) 400 mg PO Q12 PRN PRN Reason: Pain, moderate (4-7) Last Admin: 03/01/17 00:30 Dose: 400 mg Lidocaine (Lidoderm) 1 ea TD DAILY [facility] Last Admin: 03/02/17 11:59 Dose: 1 ea Lisinopril (Zestril) 2.5 mg PO DAILY [facility] Metoprolol Tartrate (Lopressor) 5 mg IVP Q6 PRN PRN Reason: Systolic Blood Pressure Last Admin: 03/02/17 08:00 Dose: 5 mg Metronidazole (Flagyl) 500 mg PO Q8 [facility] PRN Reason: Protocol Last Admin: 03/03/17 05:32 Dose: 500 mg Morphine Sulfate (Morphine) 1 mg IVP Q4H PRN PRN Reason: Pain, severe (8-10) Last Admin: 03/01/17 09:55 Dose: 1 mg Ondansetron HCl (Zofran Inj) 4 mg IVP Q4H PRN PRN Reason: Nausea/Vomiting Last Admin: 03/02/17 11:40 Dose: 4 mg Pantoprazole Sodium (Protonix Ec Tab) 40 mg PO 0600 [facility] Last Admin: 03/03/17 05:32 Dose: 40 mg Verapamil HCl (Calan Tab) 120 mg PO TID [facility] Last Admin: 03/02/17 22:56 Dose: Not Given - Labs Labs: 03/03/17 05:30 03/03/17 05:30 PT 14.4 SECONDS (9.4-12.5) H 03/03/17 05:30 INR 1.30 (0.93-1.08) H 03/03/17 05:30 APTT 36.5 Seconds (25.1-36.5) 02/27/17 15:58 - Constitutional Appears: Non-toxic, No Acute Distress - Head Exam Head Exam: ATRAUMATIC, NORMOCEPHALIC - Eye Exam Eye Exam: EOMI, Normal appearance. absent: Scleral icterus - ENT Exam ENT Exam: Mucous Membranes Dry - Respiratory Exam Respiratory Exam: Rales (Trace, bibasilar), NORMAL BREATHING PATTERN - Cardiovascular Exam Cardiovascular Exam: REGULAR RHYTHM, +S1, +S2 - GI/Abdominal Exam GI & Abdominal Exam: Soft, Normal Bowel Sounds. absent: Tenderness - Extremities Exam Extremities Exam: absent: Calf Tenderness, Pedal Edema - Neurological Exam Neurological Exam: Alert, Awake, Oriented x3 - Psychiatric Exam Psychiatric exam: Normal Affect, Normal Mood - Skin Skin Exam: Dry, Intact Assessment and Plan - Assessment and Plan (Free Text) Assessment: Assessment: 87 year old female with a past medical history of chronic lymphocytic leukemia, atrial fibrillation, CHF with EF noted to be 28%, who presented to [facility] for right sided back/flank pain. Active treatment for transaminitis 2/2 CBD obstruction, leukocytosis, CHF, and afib Plan: 1) Epigastric pain likely secondary to common bile duct stone/sludge/obstruction - MRCP showed CBD obstruction - Patient was scheduled for EUS/ERCP yesterday, postponed due to respiratory distress today 2/2 CHF - Pending GI recommendations; plan for ERCP tomorrow, NPO after midnight - Patient tolerating clear liquid diet, continue for now - Continue IV Abx; ID on consult, appreciate recs - Morphine 1 mg q4h PRN for severe pain. - GI on consult, appreciate recs. 2) Transaminitis - Likely 2/2 CBD obstruction as seen on MRCP - LFTs continue to trend down since yesterday - Viral hepatitis panel negative - HIV screen negative - DEXTER negative - Anti-smooth muscle antibody and LKM pending 3) History of CHF - Echo showed severely impaired systolic function, severe septal hypokinesis, mild-mod AR, mod MR, and severe pHTN. LVEF 28% - Patient had respiratory distress yesterday, 2/2 fluid overload; continue holding fluids, PO lasix daily, BIPAP PRN, BB, ACEi per cardio - Daily weight and monitor I/O; -1L fluid balance over the past two days - Cardiology on consult, appreciate recs 4) Atrial fibrillation - Continue to hold coumadin for possible ERCP; check INR daily - Give one dose of Lovenox today for prophylactic anticoagulation - Continue coreg, verapamil, lisinopril for rate control with PRN IV lopressor; per cardio recs - Cardiology on consult, appreciate recs 6) Leukocytosis, with lymphocyte-predominance, likely 2/2 to Chronic Lymphocytic Leukemia - Patient remains afebrile - Oncology consulted, Dr. Alberto GI/DVT Ppx - Protonix, SCDs Patient seen, discussed, and reviewed with attending <Jenny Oliver - Last Filed: 03/03/17 16:09> Objective - Vital Signs/Intake and Output Vital Signs (last 24 hours): Temp Pulse Resp BP Pulse Ox 98.6 F 68 18 122/60 98 03/03/17 12:00 03/03/17 13:45 03/03/17 12:00 03/03/17 13:45 03/03/17 06:00 Intake and Output: 03/03/17 03/03/17 06:59 18:59 Intake Total 0 260 Output Total 1400 Balance -1400 260 - Medications Medications: Current Medications Albuterol Sulfate (Albuterol 0.083% Inhal Ramandeep (2.5 Mg/3 Ml) Ud) 2.5 mg IH QIDRESP PRN PRN Reason: Shortness of Breath Last Admin: 03/02/17 08:02 Dose: 2.5 mg Carvedilol (Coreg) 3.125 mg PO BID [facility] Last Admin: 03/03/17 09:22 Dose: 3.125 mg Cholecalciferol (Vitamin D) 2,000 iu PO DAILY [facility] Last Admin: 03/03/17 09:24 Dose: 2,000 iu Cyanocobalamin (Vitamin B12 100 Mcg Tab) 250 mcg PO DAILY [facility] Last Admin: 03/03/17 09:21 Dose: 250 mcg Digoxin (Lanoxin) 0.125 mg PO 1400 [facility] Last Admin: 03/02/17 15:02 Dose: 0.125 mg Furosemide (Lasix) 40 mg PO DAILY [facility] Ceftriaxone Sodium (Rocephin 1 Gram Ivpb (D5w)) 1 gm in 100 mls @ 100 mls/hr IVPB DAILY [facility] PRN Reason: Protocol Last Admin: 03/03/17 13:48 Dose: 100 mls/hr Ibuprofen (Motrin Tab) 400 mg PO Q12 PRN PRN Reason: Pain, moderate (4-7) Last Admin: 03/01/17 00:30 Dose: 400 mg Lidocaine (Lidoderm) 1 ea TD DAILY [facility] Last Admin: 03/03/17 09:19 Dose: 1 ea Lisinopril (Zestril) 2.5 mg PO DAILY [facility] Last Admin: 03/03/17 09:20 Dose: 2.5 mg Metoprolol Tartrate (Lopressor) 5 mg IVP Q6 PRN PRN Reason: Systolic Blood Pressure Last Admin: 03/02/17 08:00 Dose: 5 mg Metronidazole (Flagyl) 500 mg PO Q8 [facility] PRN Reason: Protocol Last Admin: 03/03/17 13:47 Dose: 500 mg Morphine Sulfate (Morphine) 1 mg IVP Q4H PRN PRN Reason: Pain, severe (8-10) Last Admin: 03/01/17 09:55 Dose: 1 mg Ondansetron HCl (Zofran Inj) 4 mg IVP Q4H PRN PRN Reason: Nausea/Vomiting Last Admin: 03/02/17 11:40 Dose: 4 mg Pantoprazole Sodium (Protonix Ec Tab) 40 mg PO 0600 [facility] Last Admin: 03/03/17 05:32 Dose: 40 mg Verapamil HCl (Calan Tab) 120 mg PO TID [facility] Last Admin: 03/03/17 13:45 Dose: 120 mg - Labs Labs: 03/03/17 05:30 03/03/17 05:30 PT 14.4 SECONDS (9.4-12.5) H 03/03/17 05:30 INR 1.30 (0.93-1.08) H 03/03/17 05:30 APTT 36.5 Seconds (25.1-36.5) 02/27/17 15:58 Attending/Attestation - Attestation I have personally seen and examined this patient.: Yes I have fully participated in the care of the patient.: Yes I have reviewed all pertinent clinical information, including history, physical exam and plan: Yes Notes (Text): 03/03/17 16:06 87 year old female with past medical history of CLL, afib, and CHF who presented with right sided flank and abdominal pain. CT abd/pelvis and MRCP reviewed with likely CBD stone. GI is following. Will continue to monitor LFTs which are improving. Yesterday ERCP was postponed secondary to acute CHF exacerbation which is improving with lasix. Cardiology is following. Patient is not in any respiratory distress today. Will repeat CXR for possible ERCP/EUS tomorrow. Coumadin is on hold for now for possible GI procedure as above. Dose of lovenox was given today. Leukocytosis noted; patient has history of CLL. She is on antibiotics as per ID. Hematology evaluation was appreciated. Jenny Oliver MD Hospitalist.
[2017-03-03] MEDS: Lidocaine 5% Patch TD SCH (09:19)
[2017-03-03] MEDS ORDERED: Enoxaparin 40 mg Syringe SC ONE (10:30)
--- NOTE | 2017-03-03 11:18 | PQF CHF ---
This form is a permanent part of the medical record Dr. Oliver, Progress notes of 03/02 document episode of respiratory distress 2/2 fluid overload and CHF. Patient has hx CHF, echo with severely impaired LVF with EF 28%, elevated BNP, treated with Lasix and BIPAP with improvement. Please specify type and severity of CHF present and treated. Clarification of your documentation is requested to better reflect the severity of illness and intensity of treatment of your patient. Indicators present [x] Diagnosis of CHF and/or history of CHF [x] BNP > 200 [] Imaging Finding of Pulmonary Edema /Pleural Effusions [x] Fluid/Volume Overload [] Pitting edema [x] Ejection Fraction < 40% (Indicative of Systolic Heart Failure) [] Ejection Fraction > 40% (Indicative of Diastolic Heart Failure) [x] Dyspnea / Orthopenea / Paroxysmal Nocturnal Dyspnea [] Other: Location in the medical record that reflects the above clinical findings: [] Treatment Provided: [] Lasix, BIPAP PHYSICIAN'S RESPONSE Based on your medical judgment of the clinical indicators outlined above, are you treating this patient for a known or suspected: [] Acute CHF [] Systolic [] Diastolic [] Combined [] Chronic CHF [] Systolic [] Diastolic [] Combined [x] Acute on Chronic CHF [x]Systolic [] Diastolic [] Combined [] CHF due hypertension [] Acute systolic []Chronic systolic [] Acute/ chronic systolic [] Other, please indicate: [] [] If Unable to Determine, please check the box, sign and date. Present On Admission (POA) Indicator: [] Present at the time of admission [] Not present at the time of admission [x] Clinically Undetermined In responding to this query, please exercise your independent professional judgment. The fact that a question is asked does not imply that any particular answer is desired or expected. Thank you for your clarification on this documentation. If you have any questions please call:[ ] * Thank you, [ ]Katina Vincent [facility] #[id number] (please call if you have any questions about completing this query). aviculturist ANNABELLA
--- NOTE | 2017-03-03 11:25 | PQF SEPSIS ---
This form is a permanent part of the medical record Dr. Oliver, ID budget consultant has the diagnosis of sepsis due to biliary tract disease documented. Please document if you concur that sepsis was present on admission, ruled out. Clarification of your documentation is requested to better reflect the severity of illness and intensity of treatment of your patient. Indicators present [] Temp < 96.8 or > 100.4 [x] WBC count > 12,000/mm3 or <000/mm3 or 10% immature neutrophils [x] Heart Rate > 90 [] Respiratory Rate > 20 [] Fever or hypothermia [] Chills [] Positive blood cultures [] Hypotension [] Metabolic acidosis (Elevated lactate level, anion gap or reduced blood pH) [] Acute confusion /Altered Mental Status [] Shock [] Other: [] Location in the medical record that reflects the above clinical findings: [] Treatment Provided: [] PHYSICIAN'S RESPONSE Based on your medical judgment of the clinical indicators outlined above, are you treating this patient for a known or suspected: [x] Sepsis / Septicemia Please specify organism if known [] [] SIRS (Systemic Inflammatory Response Syndrome) [] Severe Sepsis (Sepsis with Associated Organ Dysfunction) [] Fever of Unknown Origin [] Other, please indicate: [] [] If Unable to Determine, please check the box, sign and date. Present On Admission (POA) Indicator: [x] Present at the time of admission [] Not present at the time of admission [] Clinically Undetermined In responding to this query, please exercise your independent professional judgment. The fact that a question is asked does not imply that any particular answer is desired or expected. Thank you for your clarification on this documentation. If you have any questions please call:[ ] * Thank you, [ ]Katina Vincent [facility] #[id number] assistant professor of sociology ANNABELLA
--- NOTE | 2017-03-03 12:46 | CON ---
DATE: 03/03/2017 REASON FOR CONSULTATION: Known history of chronic lymphocytic leukemia and elevated white count. HISTORY OF PRESENT ILLNESS: The patient is an 87-year-old female, well known to me for several years with known history of chronic lymphocytic leukemia stage 0 without any evidence of lymphadenopathy or any organomegaly. Her white counts have been running in the range of 25,000 to 32,000 in the office for the last 3 years. She now presence with acute onset of abdominal pain and currently being worked for possible biliary tract pathology including MRCP and ERCP and being covered for the above organisms by ID. She denies any other complaints. She has not had any fevers, no night sweats, no changes in her recent bowel habits and no other complaints. Pain is also now resolving. She denies any other symptoms at this point. PAST MEDICAL HISTORY: As above, known history of COPD, known history of atrial fibrillation as well as known history of stage 0 CLL. PAST SURGICAL HISTORY: Positive for cholecystectomy, appendectomy and a left breast mass excision. FAMILY HISTORY: Noncontributory. SOCIAL HISTORY: Noncontributory. She is not a smoker. No alcohol use. No drug use. ALLERGIES: SHE DENIES ANY ALLERGIES TO ANY MEDICATION. REVIEW OF SYSTEMS: She has never required treatment for her CLL. PHYSICAL EXAMINATION: GENERAL: The patient is an elderly frail appearing female, lying in bed, in no acute distress. VITAL SIGNS: Currently reveal a temperature of 98.3, pulse of 121, respirations of 19 and a blood pressure of 119/60 mmHg. HEAD AND NECK: Normocephalic and atraumatic. Eyes; pupils are equal, round, reactive to light and accommodation. Extraocular muscles are intact. There is some pallor. No icterus is noted. Neck is supple with no adenopathy, no JVD, and no thyromegaly. LUNGS: Clear to auscultation bilaterally with no rales or rhonchi. CARDIOVASCULAR: S1 and S2 is heard. ABDOMEN: Positive bowel sounds and soft. There is mild diffuse tenderness with no rebound or guarding. EXTREMITIES: There is no edema, clubbing, or cyanosis. LYMPHATICS: She has no palpable lymphadenopathy. LABORATORY DATA: Today revealed a white count of 24.9, hemoglobin of 12.0, hematocrit of 38.0, MCV of 91.3, and a platelet count of 147. Her chemistries are within normal limits except for an elevated total bilirubin of 1.6 and a direct of 1.4. LFTs are all elevated, but the AST and ALT have now declined to 99 and 248 and on admission, they were both in the 400. Alkaline phosphatase is also much lower. Pro BNP was 5,000 which is also declining. Her LDH has been within normal limits. DIAGNOSTIC DATA: CT of the abdomen and pelvis was done on admission which did not reveal any acute pathology. ASSESSMENT AND PLAN: An elderly female with leukocytosis that is consistent with her known history of chronic lymphocytic leukemia. There have no changes in her complete blood count in over 3 years. She has never required any treatment for her chronic lymphocytic leukemia and likely never will. Currently, her abdominal pain is likely gastrointestinal related to her cholecystectomy. Continue intravenous antibiotics as per Infectious Diseases and gastrointestinal workup. We will follow along with you, but no intervention necessary from Hematology point of view. Thank you for the consult. Matt Alberto MD
--- NOTE | 2017-03-03 12:53 | PN ---
DATE: 03/03/2017 REASON FOR CONSULTATION AND FOLLOWUP: Preoperative evaluation, risk stratification for endoscopy. SUBJECTIVE: The patient denies any chest pain, shortness of breath, or any palpitation. Feels a lot better. No shortness of breath today. OBJECTIVE/PHYSICAL EXAMINATION: As follows: GENERAL: Lying flat in the bed and not in apparent distress. VITAL SIGNS: Temperature is afebrile, heart rate is 57, and blood pressure is 140/88. HEENT: PERRLA intact. NECK: Supple. No carotid bruit or thyromegaly. CHEST: Clear to auscultation. HEART: S1 and S2 regular. ABDOMEN: Soft. EXTREMITIES: Clubbing and cyanosis negative. LABORATORY DATA: Blood workup as follows: WBC of 24.9, hemoglobin of 12, hematocrit of 38.0, and platelet count of 147. Chemistry showed sodium of 140, potassium of 3.6, chloride of 102, carbon dioxide of 35, anion gap of 7, BUN of 18, and creatinine of 0.9. INR is 1.3. IMPRESSION AND PLAN: An 87-year-old female with abdominal pain possible pyelonephritis of abnormal transaminases, history of chronic atrial fibrillation, on anticoagulation, as well as on heparin. Recent echocardiography shows ischemic cardiomyopathy with ejection fraction 27%, [id number] aortic regurgitation, moderate mitral regurgitation, severe pulmonary hypertension, and ejection fraction of 66%. Yesterday, was getting intravenous fluid, I noted that possibly because of high elevated transaminases, went into pulmonary edema, Lasix given two doses and the patient is stable. The patient was scheduled for endoscopy yesterday, but it was canceled because of respiratory distress. The patient is now comfortable and not clinically in congestive heart failure. The patient is okay to go for endoscopy today. We will change Lasix to p.o. form tomorrow. We will supplement potassium and once endoscopy is done, the patient will be restated on Coumadin which is on hold. Continue low-dose Coreg, continue digoxin, and continue Lasix. We will follow with you. The patient scheduled to go for endoscopy and we will supplement electrolytes as needed. We will give one dose of IV potassium because the patient is n.p.o. the patient is cleared to go for endoscopy. We will follow with you. Thank you Dr. Oliver, for providing us the opportunity in taking care of the patient, Mirian Amaral. Roselyn Nj MD
[2017-03-03] MEDS: cefTRIAXone 1 gm 1 GM/100 ML BAG IVPB SCH (13:48)
--- NOTE | 2017-03-03 14:52 | PN ---
DATE: 03/03/2017 SUBJECTIVE: The patient is in bed in no acute distress, nontoxic. PHYSICAL EXAMINATION: VITAL SIGNS: On exam, temperature is 98, blood pressure is 119/60, and respiratory rate of 18. HEENT: Unremarkable. NECK: Supple. LUNGS: Have decreased breath sounds. HEART: Normal S1 and S2. ABDOMEN: Soft and nontender. LABORATORY DATA: Examination reveals a white count is down to 24,000 and hemoglobin of 12. BUN of 18 and creatinine of 0.9. Microbiology reveals the blood and urine cultures are negative. MEDICATIONS: Review of orders reveals the patient is on p.o. Flagyl and IV ceftriaxone. ASSESSMENT AND PLAN: This is an 87-year-old female with sepsis with biliary tract disease, history of cholecystectomy, appendectomy with a common bile duct. The patient is scheduled for an ERCP. Once the ERCP done and stone was removed, may switch to p.o. antibiotics to complete therapy for 24 hours postprocedure. Sigifredo Rowell MD
--- NOTE | 2017-03-03 16:09 | CP.PCM.PN ---
<Josee,Charlesl V - Last Filed: 03/03/17 21:21> Objective - Vital Signs/Intake and Output Vital Signs (last 24 hours): Temp Pulse Resp BP Pulse Ox 98.7 F 81 18 111/47 L 97 03/03/17 16:32 03/03/17 18:00 03/03/17 16:32 03/03/17 17:33 03/03/17 16:32 Intake and Output: 03/03/17 03/04/17 18:59 06:59 Intake Total 260 Balance 260 - Medications Medications: Current Medications Albuterol Sulfate (Albuterol 0.083% Inhal Ramandeep (2.5 Mg/3 Ml) Ud) 2.5 mg IH QIDRESP PRN PRN Reason: Shortness of Breath Last Admin: 03/02/17 08:02 Dose: 2.5 mg Cholecalciferol (Vitamin D) 2,000 iu PO DAILY [facility] Last Admin: 03/03/17 09:24 Dose: 2,000 iu Cyanocobalamin (Vitamin B12 100 Mcg Tab) 250 mcg PO DAILY [facility] Last Admin: 03/03/17 09:21 Dose: 250 mcg Digoxin (Lanoxin) 0.125 mg PO 1400 [facility] Last Admin: 03/02/17 15:02 Dose: 0.125 mg Furosemide (Lasix) 40 mg PO DAILY [facility] Ceftriaxone Sodium (Rocephin 1 Gram Ivpb (D5w)) 1 gm in 100 mls @ 100 mls/hr IVPB DAILY [facility] PRN Reason: Protocol Last Admin: 03/03/17 13:48 Dose: 100 mls/hr Ibuprofen (Motrin Tab) 400 mg PO Q12 PRN PRN Reason: Pain, moderate (4-7) Last Admin: 03/01/17 00:30 Dose: 400 mg Lidocaine (Lidoderm) 1 ea TD DAILY [facility] Last Admin: 03/03/17 09:19 Dose: 1 ea Lisinopril (Zestril) 2.5 mg PO DAILY [facility] Last Admin: 03/03/17 09:20 Dose: 2.5 mg Metoprolol Tartrate (Lopressor) 5 mg IVP Q6 PRN PRN Reason: Systolic Blood Pressure Last Admin: 03/02/17 08:00 Dose: 5 mg Metronidazole (Flagyl) 500 mg PO Q8 [facility] PRN Reason: Protocol Last Admin: 03/03/17 21:10 Dose: 500 mg Morphine Sulfate (Morphine) 1 mg IVP Q4H PRN PRN Reason: Pain, severe (8-10) Last Admin: 03/01/17 09:55 Dose: 1 mg Ondansetron HCl (Zofran Inj) 4 mg IVP Q4H PRN PRN Reason: Nausea/Vomiting Last Admin: 03/02/17 11:40 Dose: 4 mg Pantoprazole Sodium (Protonix Ec Tab) 40 mg PO 0600 [facility] Last Admin: 03/03/17 05:32 Dose: 40 mg Verapamil HCl (Calan Tab) 120 mg PO TID [facility] Last Admin: 03/03/17 17:33 Dose: 120 mg - Labs Labs: 03/03/17 05:30 03/03/17 05:30 PT 14.4 SECONDS (9.4-12.5) H 03/03/17 05:30 INR 1.30 (0.93-1.08) H 03/03/17 05:30 APTT 36.5 Seconds (25.1-36.5) 02/27/17 15:58 Attending/Attestation - Attestation I have personally seen and examined this patient.: Yes I have fully participated in the care of the patient.: Yes I have reviewed all pertinent clinical information, including history, physical exam and plan: Yes Notes (Text): This is an addendum to GI progress report dictated by Samira Gagnon APN.The patient was seen and examined earlier. Medical records, lab studies, imagings were reviewed. Last 24 hours events reviewed. Agreed with the above treatment plan as outlined in Samira Gagnon APN's notes the with the addition of the following this patient was seen in evaluated earlier Clinically much improved Abdomen soft minimal tenderness on deep palpation in the right upper quadrant area, few basal rales still present Significant improvement of the LFTs Discussed with anesthesiologist and also with Dr. Oliver Recommend 1. Repeat chest x-ray 2. If the patient continued to show clinical improvement and stable after anesthesiologist reevaluation would consider rescheduling the patient for EUS ERCP tomorrow 03/03/17 21:21 <Samira Gagnon - Last Filed: 03/04/17 08:04> Subjective - Date & Time of Evaluation Date of Evaluation: 12/05/17 Time of Evaluation: 10:30 - Subjective Subjective: S&E at bedside, chart reviewed, patient denies SOB or chest pain. Feels a bit better. No N/V or abdominal pain. Objective - Vital Signs/Intake and Output Vital Signs (last 24 hours): Temp Pulse Resp BP Pulse Ox 98.6 F 68 18 122/60 98 03/03/17 12:00 03/03/17 13:45 03/03/17 12:00 03/03/17 13:45 03/03/17 06:00 Intake and Output: 03/03/17 03/03/17 06:59 18:59 Intake Total 0 260 Output Total 1400 Balance -1400 260 - Medications Medications: Current Medications Albuterol Sulfate (Albuterol 0.083% Inhal Ramandeep (2.5 Mg/3 Ml) Ud) 2.5 mg IH QIDRESP PRN PRN Reason: Shortness of Breath Last Admin: 03/02/17 08:02 Dose: 2.5 mg Carvedilol (Coreg) 3.125 mg PO BID [facility] Last Admin: 03/03/17 09:22 Dose: 3.125 mg Cholecalciferol (Vitamin D) 2,000 iu PO DAILY [facility] Last Admin: 03/03/17 09:24 Dose: 2,000 iu Cyanocobalamin (Vitamin B12 100 Mcg Tab) 250 mcg PO DAILY [facility] Last Admin: 03/03/17 09:21 Dose: 250 mcg Digoxin (Lanoxin) 0.125 mg PO 1400 [facility] Last Admin: 03/02/17 15:02 Dose: 0.125 mg Furosemide (Lasix) 40 mg PO DAILY [facility] Ceftriaxone Sodium (Rocephin 1 Gram Ivpb (D5w)) 1 gm in 100 mls @ 100 mls/hr IVPB DAILY [facility] PRN Reason: Protocol Last Admin: 03/03/17 13:48 Dose: 100 mls/hr Ibuprofen (Motrin Tab) 400 mg PO Q12 PRN PRN Reason: Pain, moderate (4-7) Last Admin: 03/01/17 00:30 Dose: 400 mg Lidocaine (Lidoderm) 1 ea TD DAILY [facility] Last Admin: 03/03/17 09:19 Dose: 1 ea Lisinopril (Zestril) 2.5 mg PO DAILY [facility] Last Admin: 03/03/17 09:20 Dose: 2.5 mg Metoprolol Tartrate (Lopressor) 5 mg IVP Q6 PRN PRN Reason: Systolic Blood Pressure Last Admin: 03/02/17 08:00 Dose: 5 mg Metronidazole (Flagyl) 500 mg PO Q8 [facility] PRN Reason: Protocol Last Admin: 03/03/17 13:47 Dose: 500 mg Morphine Sulfate (Morphine) 1 mg IVP Q4H PRN PRN Reason: Pain, severe (8-10) Last Admin: 03/01/17 09:55 Dose: 1 mg Ondansetron HCl (Zofran Inj) 4 mg IVP Q4H PRN PRN Reason: Nausea/Vomiting Last Admin: 03/02/17 11:40 Dose: 4 mg Pantoprazole Sodium (Protonix Ec Tab) 40 mg PO 0600 [facility] Last Admin: 03/03/17 05:32 Dose: 40 mg Verapamil HCl (Calan Tab) 120 mg PO TID [facility] Last Admin: 03/03/17 13:45 Dose: 120 mg - Labs Labs: 03/03/17 05:30 03/03/17 05:30 PT 14.4 SECONDS (9.4-12.5) H 03/03/17 05:30 INR 1.30 (0.93-1.08) H 03/03/17 05:30 APTT 36.5 Seconds (25.1-36.5) 02/27/17 15:58 - Constitutional Appears: No Acute Distress - Head Exam Head Exam: NORMOCEPHALIC - Eye Exam Eye Exam: Normal appearance. absent: Scleral icterus - ENT Exam ENT Exam: Mucous Membranes Moist - Neck Exam Neck Exam: Normal Inspection - Respiratory Exam Respiratory Exam: Rales, NORMAL BREATHING PATTERN. absent: Respiratory Distress - Cardiovascular Exam Cardiovascular Exam: +S1, +S2 - GI/Abdominal Exam GI & Abdominal Exam: Soft. absent: Guarding, Tenderness, Rebound - Extremities Exam Extremities Exam: absent: Calf Tenderness - Neurological Exam Neurological Exam: Alert, Awake, Oriented x3 - Skin Skin Exam: Dry, Warm Assessment and Plan - Assessment and Plan (Free Text) Assessment: ASSESSMENT: CLL Elevated LFT, MRCP CBD stone Atrial Fibrillation CHF Cardiomyopathy PLAN: monitor LFT continue PPI OK to give dose of Lovenox discuss case w/anesthesia team, recommend to hold off endo procedure, patient respiratory status is not optimal at this time, will reevaluate tomorrow and tentatively plan egd/eus/ercp tomorrow. NPO 12 midnight except for meds, resume clear liquids on IV antibiotics Discuss w/ medical team. Seen and discussed w/ Dr. Tripp.
[2017-03-04] MEDS: Pantoprazole 40 mg EC Tab PO SCH (05:42)
[2017-03-04 07:53] LABS: BASO # 0.06 K/mm3 (0.0-2.0); BASO % 0.2 % (0.0-3.0); EOS # 0.2 (0.0-0.7); EOS % 0.8 % (1.5-5.0); GRAN % 22.8 % (50.0-68.0); HEMATOCRIT 36.7 % (36.0-48.0); LYMPH # 18.2 (1.2-3.4); LYMPH % 71.5 % (22.0-35.0); MEAN CELL VOLUME 91.8 fl (80.0-105.0); MEAN CORPUSCULAR HEMOGLOBIN 28.8 pg (25.0-35.0); MEAN CORPUSCULAR HGB CONC 31.3 g/dl (31.0-37.0); MEAN PLATELET VOLUME 12.7 fl (7.0-11.0); MONO # 1.2 (0.1-0.6); MONO % 4.7 % (1.0-6.0); PLATELET COUNT 159 10^3/uL (120.0-450.0); RED CELL DISTRIBUTION WIDTH 14.3 % (11.5-14.5)
[2017-03-04 07:57] LABS: WHITE BLOOD COUNT 25.5 10^3/ul (4.5-11.0)
[2017-03-04 08:30] LABS: ALB/GLOB RATIO 1.2 (1.1-1.8); ALKALINE PHOSPHATASE 141 U/L (38-126); ALT/SGPT 171 U/L (7-56); AST/SGOT 60 U/L (14-36); BILIRUBIN,TOTAL 1.2 mg/dL (0.2-1.3); BLOOD UREA NITROGEN 21 mg/dL (7-21); CALCIUM 8.8 mg/dL (8.4-10.5); CARBON DIOXIDE 32 mmol/L (21-33); CHLORIDE 99 mmol/L (98-107); GFR AFRICAN-AMERICAN > 60; GLUCOSE,RANDOM 100 mg/dL (70-110); POTASSIUM 3.2 mmol/L (3.6-5.0); SODIUM 140 mmol/L (132-148); TOTAL PROTEIN 5.5 g/dL (5.8-8.3)
--- NOTE | 2017-03-04 08:56 | RAD ---
HISTORY: f/u pulmonary edema COMPARISON: 03/02/2017 849 hours FINDINGS: LUNGS: Lung volumes are increased- background COPD inferred. Overall interstitial lung markings are increased particularly in each upper lung zone. Background interstitial lung disease with superimposed pulmonary edema/ vascular cephalization. This pulmonary interstitial edema appears less now. No dense consolidation PLEURA: Smaller left pleural effusion. . No pneumothorax apparent. CARDIOVASCULAR: Minimal cardiomegaly-similar. Prominent right hilum similar OSSEOUS STRUCTURES: Bilateral shoulder arthrosis and generalized osteopenia. Diffuse thoracic lumbar spondylosis VISUALIZED UPPER ABDOMEN: Normal. OTHER FINDINGS: None. IMPRESSION: Interval decreased pulmonary interstitial edema. Interval decrease left pleural effusion Background interstitial lung disease inferred. Background COPD Minimal cardiomegaly
[2017-03-04 09:25] LABS: ATYPICAL LYMPHOCYTE 7 % (0.0-0.0); NEUTROPHIL 30 % (50.0-70.0); PLATELET ESTIMATE NORMAL (NORMAL)
[2017-03-04 09:26] LABS: ANISOCYTOSIS 1+; HYPOCHROMIA 1+; LARGE PLATELETS PRESENT; POLYCHROMASIA SLIGHT
--- NOTE | 2017-03-04 09:28 | CP.PCM.PN ---
<Carmina Teague - Last Filed: 03/04/17 11:27> Subjective - Date & Time of Evaluation Date of Evaluation: 03/04/17 Time of Evaluation: 07:30 - Subjective Subjective: Carmina Teague DO PGY1 - Internal Medicine Progress Note Patient seen and examined at bedside. No events overnight. Patient is currently NPO for planned ERCP today. Patient tolerated clear liquid diet yesterday. She denies any nausea or recent bouts of emesis, abdominal pain, diarrhea. She has not yet had a bowel movement, but has been passing gas normally. She denies fevers or chills. Objective - Vital Signs/Intake and Output Vital Signs (last 24 hours): Temp Pulse Resp BP Pulse Ox 98.2 F 102 H 18 144/61 98 03/04/17 06:00 03/04/17 06:00 03/04/17 06:00 03/04/17 06:00 03/04/17 06:00 Intake and Output: 03/04/17 03/04/17 06:59 18:59 Intake Total 300 Output Total 150 Balance 150 - Medications Medications: Current Medications Albuterol Sulfate (Albuterol 0.083% Inhal Ramandeep (2.5 Mg/3 Ml) Ud) 2.5 mg IH QIDRESP PRN PRN Reason: Shortness of Breath Last Admin: 03/02/17 08:02 Dose: 2.5 mg Cholecalciferol (Vitamin D) 2,000 iu PO DAILY [facility] Last Admin: 03/03/17 09:24 Dose: 2,000 iu Cyanocobalamin (Vitamin B12 100 Mcg Tab) 250 mcg PO DAILY [facility] Last Admin: 03/03/17 09:21 Dose: 250 mcg Digoxin (Lanoxin) 0.125 mg PO 1400 [facility] Last Admin: 03/02/17 15:02 Dose: 0.125 mg Furosemide (Lasix) 40 mg PO DAILY [facility] Ceftriaxone Sodium (Rocephin 1 Gram Ivpb (D5w)) 1 gm in 100 mls @ 100 mls/hr IVPB DAILY [facility] PRN Reason: Protocol Last Admin: 03/03/17 13:48 Dose: 100 mls/hr Potassium Chloride (Potassium Chloride 20 Meq/100 Ml) 20 meq in 100 mls @ 50 mls/hr IVPB Q2H [facility] Stop: 03/04/17 12:44 Ibuprofen (Motrin Tab) 400 mg PO Q12 PRN PRN Reason: Pain, moderate (4-7) Last Admin: 03/01/17 00:30 Dose: 400 mg Lidocaine (Lidoderm) 1 ea TD DAILY [facility] Last Admin: 03/03/17 09:19 Dose: 1 ea Lisinopril (Zestril) 2.5 mg PO DAILY [facility] Last Admin: 03/03/17 09:20 Dose: 2.5 mg Metoprolol Tartrate (Lopressor) 5 mg IVP Q6 PRN PRN Reason: Systolic Blood Pressure Last Admin: 03/02/17 08:00 Dose: 5 mg Metronidazole (Flagyl) 500 mg PO Q8 [facility] PRN Reason: Protocol Last Admin: 03/04/17 05:42 Dose: 500 mg Morphine Sulfate (Morphine) 1 mg IVP Q4H PRN PRN Reason: Pain, severe (8-10) Last Admin: 03/01/17 09:55 Dose: 1 mg Ondansetron HCl (Zofran Inj) 4 mg IVP Q4H PRN PRN Reason: Nausea/Vomiting Last Admin: 03/02/17 11:40 Dose: 4 mg Pantoprazole Sodium (Protonix Ec Tab) 40 mg PO 0600 [facility] Last Admin: 03/04/17 05:42 Dose: 40 mg Verapamil HCl (Calan Tab) 120 mg PO TID [facility] Last Admin: 03/03/17 17:33 Dose: 120 mg - Labs Labs: 03/04/17 06:30 03/04/17 06:30 PT 14.4 SECONDS (9.4-12.5) H 03/03/17 05:30 INR 1.30 (0.93-1.08) H 03/03/17 05:30 APTT 36.5 Seconds (25.1-36.5) 02/27/17 15:58 - Constitutional Appears: Non-toxic, No Acute Distress - Head Exam Head Exam: ATRAUMATIC, NORMOCEPHALIC - Eye Exam Eye Exam: EOMI, Normal appearance. absent: Scleral icterus - ENT Exam ENT Exam: Mucous Membranes Moist - Respiratory Exam Respiratory Exam: Rales (Faint, bibasilar), NORMAL BREATHING PATTERN. absent: Decreased Breath Sounds, Prolonged Expiratory Phase, Rhonchi, Wheezes, Respiratory Distress - Cardiovascular Exam Cardiovascular Exam: Tachycardia (intermittent), Irregular Rhythm, RRR, +S1, +S2 - GI/Abdominal Exam GI & Abdominal Exam: Soft, Normal Bowel Sounds. absent: Distended, Firm, Guarding, Rigid, Tenderness, Rebound - Extremities Exam Extremities Exam: absent: Calf Tenderness, Pedal Edema - Neurological Exam Neurological Exam: Alert, Awake, Oriented x3 - Psychiatric Exam Psychiatric exam: Normal Affect, Normal Mood - Skin Skin Exam: Dry, Intact, Normal Color - Additional Findings Additional findings: Placed patient in supine position throughout the encounter; no changes in breathing patterns, patient did not complain of dyspnea Assessment and Plan - Assessment and Plan (Free Text) Assessment: 87 year old female with a past medical history of chronic lymphocytic leukemia, atrial fibrillation, CHF with EF noted to be 28%, who presented to [facility] for right sided back/flank pain. Active treatment for transaminitis 2/2 CBD obstruction, leukocytosis, CHF, and afib Plan: 1) Epigastric pain likely secondary to common bile duct stone/sludge/obstruction - MRCP showed CBD obstruction - Patient scheduled for ERCP today with Dr. Tripp - Continue IV Abx; ID on consult, appreciate recs - Patient no longer complaining of abdominal pain, will discontinue morphine; continue PRN Ibuprofen for pain - GI on consult, appreciate recs. 2) Transaminitis - Likely 2/2 CBD obstruction as seen on MRCP - LFTs continue to trend down - Viral hepatitis panel negative - HIV screen negative - DEXTER negative - Anti-smooth muscle antibody negative - LKM pending 3) History of CHF - Echo showed severely impaired systolic function, severe septal hypokinesis, mild-mod AR, mod MR, and severe pHTN. LVEF 28% - Patient had respiratory distress yesterday, 2/2 fluid overload; continue holding fluids, PO lasix daily, BIPAP PRN, BB, ACEi per cardio - Daily weight and monitor I/O - Respiratory status stable, without orthopnea - Cardiology on consult, appreciate recs 4) Atrial fibrillation - Plan to resume coumadin after ERCP, pending GI recs postprocedure - Received one dose of Lovenox yesterday for prophylactic anticoagulation - Continue coreg, verapamil, lisinopril for rate control with PRN IV lopressor; per cardio recs - Cardiology on consult, appreciate recs 6) Leukocytosis, with lymphocyte-predominance, likely 2/2 to Chronic Lymphocytic Leukemia - Patient remains afebrile - Oncology consulted, Dr. Alberto; recommends no intervention GI/DVT Ppx - Protonix, SCDs Patient seen, discussed, and reviewed with attending <Jenny Oliver - Last Filed: 03/04/17 15:04> Objective - Vital Signs/Intake and Output Vital Signs (last 24 hours): Temp Pulse Resp BP Pulse Ox 97.8 F 125 H 19 142/70 95 03/04/17 13:00 03/04/17 13:00 03/04/17 13:00 03/04/17 13:11 03/04/17 13:11 Intake and Output: 03/04/17 03/04/17 06:59 18:59 Intake Total 300 Output Total 150 Balance 150 - Medications Medications: Current Medications Albuterol Sulfate (Albuterol 0.083% Inhal Ramandeep (2.5 Mg/3 Ml) Ud) 2.5 mg IH QIDRESP PRN PRN Reason: Shortness of Breath Last Admin: 03/02/17 08:02 Dose: 2.5 mg Cholecalciferol (Vitamin D) 2,000 iu PO DAILY [facility] Last Admin: 03/03/17 09:24 Dose: 2,000 iu Cyanocobalamin (Vitamin B12 100 Mcg Tab) 250 mcg PO DAILY [facility] Last Admin: 03/03/17 09:21 Dose: 250 mcg Furosemide (Lasix) 40 mg PO DAILY [facility] Ceftriaxone Sodium (Rocephin 1 Gram Ivpb (D5w)) 1 gm in 100 mls @ 100 mls/hr IVPB DAILY [facility] PRN Reason: Protocol Last Admin: 03/04/17 09:56 Dose: 100 mls/hr Ibuprofen (Motrin Tab) 400 mg PO Q12 PRN PRN Reason: Pain, moderate (4-7) Last Admin: 03/01/17 00:30 Dose: 400 mg Lidocaine (Lidoderm) 1 ea TD DAILY [facility] Last Admin: 03/04/17 09:52 Dose: 1 ea Lisinopril (Zestril) 2.5 mg PO DAILY [facility] Last Admin: 03/03/17 09:20 Dose: 2.5 mg Metoprolol Tartrate (Lopressor) 5 mg IVP Q6 PRN PRN Reason: Systolic Blood Pressure Last Admin: 03/02/17 08:00 Dose: 5 mg Metronidazole (Flagyl) 500 mg PO Q8 [facility] PRN Reason: Protocol Last Admin: 03/04/17 05:42 Dose: 500 mg Morphine Sulfate (Morphine) 1 mg IVP Q4H PRN PRN Reason: Pain, severe (8-10) Last Admin: 03/01/17 09:55 Dose: 1 mg Ondansetron HCl (Zofran Inj) 4 mg IVP Q4H PRN PRN Reason: Nausea/Vomiting Last Admin: 03/02/17 11:40 Dose: 4 mg Pantoprazole Sodium (Protonix Ec Tab) 40 mg PO 0600 [facility] Last Admin: 03/04/17 05:42 Dose: 40 mg Verapamil HCl (Calan Tab) 40 mg PO TID [facility] - Labs Labs: 03/04/17 06:30 03/04/17 06:30 PT 14.4 SECONDS (9.4-12.5) H 03/03/17 05:30 INR 1.30 (0.93-1.08) H 03/03/17 05:30 APTT 36.5 Seconds (25.1-36.5) 02/27/17 15:58 Attending/Attestation - Attestation I have personally seen and examined this patient.: Yes I have fully participated in the care of the patient.: Yes I have reviewed all pertinent clinical information, including history, physical exam and plan: Yes Notes (Text): 03/04/17 15:02 87 year old female with past medical history of CLL, afib, and CHF who presented with right sided flank and abdominal pain. CT abd/pelvis and MRCP reviewed with likely CBD stone. GI is following. Will continue to monitor LFTs which are improving. Hospital course was complicated with respiratory distress secondary to acute CHF exacerbation which improved with lasix. Her respiratory status is much better today. CXR also shows decreased congestion. She is being followed by cardiology and GI. Plan is for EUS/ERCP today. Consider resuming coumadin after pending results if okay with cardio/GI. Leukocytosis noted; patient has history of CLL. She is on antibiotics as per ID. Hematology evaluation was appreciated. Will replete and repeat lyes. Jenny Oliver MD Hospitalist.
[2017-03-04] MEDS: Lidocaine 5% Patch TD SCH (09:52)
[2017-03-04] MEDS: cefTRIAXone 1 gm 1 GM/100 ML BAG IVPB SCH (09:56)
[2017-03-04] MEDS ORDERED: Iohexol 240 (50 ml) ONE (12:25)
[2017-03-04] MEDS ORDERED: Glucagon Recombinant 1 mg Inj ONE (12:25)
[2017-03-04] MEDS ORDERED: Indomethacin 50 MG Suppository PR ONE (12:26)
[2017-03-04] MEDS ORDERED: Propofol 10 mg/ml Inj (20 ML) ONE (13:19)
[2017-03-04] MEDS ORDERED: Midazolam 2 MG/2 ML VIAL ONE (13:20)
[2017-03-04] MEDS ORDERED: Lidocaine 2% Inj (20ml) ONE ×2 (13:20→13:25)
[2017-03-04] MEDS ORDERED: Etomidate 20 mg/10ml Inj IV ONE (13:21)
[2017-03-04] MEDS ORDERED: Succinylcholine 200 mg/10 ml Inj IV ONE (13:24)
--- NOTE | 2017-03-04 13:52 | PN ---
DATE: REASON FOR CONSULTATION AND FOLLOWUP: Preoperative evaluation, risk stratification for endoscopy. SUBJECTIVE: The patient denies any chest pain, shortness of breath or any palpitation. OBJECTIVE: GENERAL: The patient is not in apparent distress. VITAL SIGNS: Temperature afebrile, heart rate 102, and blood pressure 144/61. HEENT: PERRLA. Extraocular muscles intact. NECK: Supple. No carotid bruits or thyromegaly. CHEST: Clear to auscultation. HEART: S1 and S2, regular. ABDOMEN: Soft. EXTREMITIES: Clubbing and cyanosis negative. LABORATORY DATA: Blood workup as follows: WBC 25.5, hemoglobin 11.5, hematocrit 36.8, and platelet count 159. Chemistry shows sodium 140, potassium 3.2, chloride 99, carbon dioxide 32, anion gap of 11, BUN 21, and creatinine 0.9. IMPRESSION: History of atrial fibrillation, chronic, on anticoagulation, admitted with sepsis, willing to go for endoscopy today. The patient went into fluid overload because of getting IV fluid. Given the Lasix because of the patient's underlying cardiomyopathy; [id number] congestive heart failure secondary to systolic dysfunction, [id number] aortic regurgitation, mild mitral regurgitation, pulmonary hypertension, right ventricular systolic pressure 55. RECOMMENDATIONS: Continue gentle diuretics, supplement potassium. The patient is okay to go from Cardiology point of view to endoscopy, which was canceled 2 days possibly endoscopy today. Hold digoxin because of low heart rate. The patient is to continue low-dose of ANTOLIN inhibitors. We will cut down verapamil to 40 t.i.d. because the patient will be getting high dose of verapamil that was causing bradycardia. We will supplement potassium and the patient is okay to go for endoscopy. We will adjust verapamil to 40 t.i.d. because the patient is getting bradycardia at night, was on 120 t.i.d. Roselyn Nj MD
[2017-03-04 14:20] LABS: LKM-1 Ab (IgG) <=20.0 U (<=20.0)
[2017-03-04] MEDS ORDERED: Lactated Ringer's 1,000 ML IV SCH (15:00)
--- NOTE | 2017-03-04 18:41 | PN ---
DATE: 03/04/2017 SUBJECTIVE: The patient is in bed, in no acute distress, nontoxic. PHYSICAL EXAMINATION: VITAL SIGNS: Temperature is 98, blood pressure is 140/80, respiratory rate of 16. HEENT: Unremarkable. NECK: Supple. LUNGS: Have decreased breath sounds. HEART: Normal S1 and S2. ABDOMEN: Soft and nontender. LABORATORY EXAMINATION: Reveals the patient to have a white count of 25,000, hemoglobin of 11. Chemistries reveal the BUN of 21, creatinine of 0.9. LFTs are improving. Microbiology is noted and blood cultures, urine cultures are negative and the patient is scheduled for an endoscopy, an ERCP, and EUS. ASSESSMENT AND PLAN: This is an 87-year-old female with sepsis with biliary tract disease, history of cholecystectomy, appendectomy, common bile duct, and for endoscopic retrograde cholangiopancreatography today. Once the endoscopic retrograde cholangiopancreatography is done complete 24 hours of antibiotics, postprocedure. Review of orders reveals the patient to be on p.o. Flagyl and ceftriaxone. Sigifredo Rowell MD
[2017-03-05] MEDS: Pantoprazole 40 mg EC Tab PO SCH (05:00)
[2017-03-05 06:50] LABS: BASO # 0.07 K/mm3 (0.0-2.0); BASO % 0.3 % (0.0-3.0); EOS # 0.2 (0.0-0.7); EOS % 0.7 % (1.5-5.0); GRAN # 4.68 (1.4-6.5); HEMATOCRIT 37.1 % (36.0-48.0); LYMPH # 17.5 (1.2-3.4); LYMPH % 74.8 % (22.0-35.0); MEAN CELL VOLUME 91.8 fl (80.0-105.0); MEAN CORPUSCULAR HEMOGLOBIN 28.2 pg (25.0-35.0); MEAN CORPUSCULAR HGB CONC 30.7 g/dl (31.0-37.0); MEAN PLATELET VOLUME 12.4 fl (7.0-11.0); MONO % 4.2 % (1.0-6.0); RED CELL DISTRIBUTION WIDTH 14.4 % (11.5-14.5); WHITE BLOOD COUNT 23.4 10^3/ul (4.5-11.0)
[2017-03-05 07:16] LABS: INR 1.16 (0.93-1.08)
[2017-03-05 08:01] VITALS: BP 149/92; RESP 18; TEMP 97.6; O2SAT 99
--- NOTE | 2017-03-05 08:09 | RAD ---
PROCEDURE: ERCP HISTORY: ? CBD OBST COMPARISON: TECHNIQUE: Fluoroscopy was provided in the endoscopy suite. 243 seconds of fluoro time. Six images were submitted FINDINGS: There is opacification of the common duct and passage of a wire. The common duct is dilated. There is no obvious filling defect IMPRESSION: As above
[2017-03-05 08:19] LABS: ALB/GLOB RATIO 1.1 (1.1-1.8); ALKALINE PHOSPHATASE 198 U/L (38-126); ALT/SGPT 134 U/L (7-56); AST/SGOT 63 U/L (14-36); BILIRUBIN,TOTAL 1.1 mg/dL (0.2-1.3); BLOOD UREA NITROGEN 19 mg/dL (7-21); CALCIUM 8.6 mg/dL (8.4-10.5); CARBON DIOXIDE 34 mmol/L (21-33); CHLORIDE 102 mmol/L (98-107); GFR AFRICAN-AMERICAN > 60; GLUCOSE,RANDOM 93 mg/dL (70-110); POTASSIUM 3.9 mmol/L (3.6-5.0); SODIUM 139 mmol/L (132-148); TOTAL PROTEIN 5.4 g/dL (5.8-8.3)
[2017-03-05] MEDS: Lidocaine 5% Patch TD SCH (10:01)
[2017-03-05] MEDS: cefTRIAXone 1 gm 1 GM/100 ML BAG IVPB SCH (10:02)
[2017-03-05] MEDS ORDERED: POLYETHYLENE GLYCOL 3350 17 GM/Dose PACKET PO STA (11:18)
[2017-03-05] MEDS ORDERED: Enoxaparin 40 mg Syringe SC STA (11:18)
--- NOTE | 2017-03-05 14:28 | PN ---
DATE: 03/05/2017 REASON FOR CONSULTATION: Followup preoperative evaluation, risk stratification for endoscopy, status post ERCP. SUBJECTIVE: The patient denies any chest pain, shortness of breath or any palpitation. PHYSICAL EXAMINATION: VITAL SIGNS: As follows, temperature afebrile, heart rate 103, blood pressure 114/92. HEENT: PERRLA. Extraocular muscles intact. NECK: Supple. No carotid bruit or thyromegaly. CHEST: Clear to auscultation. HEART: S1, S2 regular. ABDOMEN: Soft. EXTREMITIES: Clubbing and cyanosis negative. LABORATORY DATA: Blood workup as follows, WBC 23.4, hemoglobin 11.4, hematocrit 37.1, platelet count 167. Chemistry shows sodium 130, potassium 3.9, chloride 102, carbon dioxide 34, anion gap of 7, BUN of 19, creatinine of 0.8. Total protein 5.4, hemoglobin 2.8. IMPRESSION: Chronic atrial fibrillation, on anticoagulation, status post endoscopic retrograde cholangiopancreatography, official report pending, status post fluid overload, cardiomyopathy, [id number] aortic regurgitation, mild mitral regurgitation, pulmonary hypertension, right ventricular systolic pressure at 55. RECOMMENDATIONS: Coumadin was on hold because of GI endoscopy. We will resume back Coumadin, low-dose ANTOLIN inhibitors. To control the heart rate, we will put back on verapamil. Hold digoxin. We will follow with you. We will increase verapamil to 80 mg three times a day and we will discontinue 40 t.i.d. Digoxin on hold because of the low heart rate. Possible discharge in a day or two. We will give 5 mg of Coumadin today. Followup with upon discharge. Thank you for providing us the opportunity in taking care of the patient, Mirian Amaral. We will follow with you. Roselyn Nj MD
[2017-03-05 15:22] VITALS: PULSE 114
--- NOTE | 2017-03-05 20:17 | CP.PCM.DIS ---
<Carmina Teague - Last Filed: 03/05/17 20:07> Provider - Provider Date of Admission: 02/27/17 20:37 Attending physician: Jenny Oliver MD Primary care physician: Jac Clements MD Consults: Cardio: Clem GI: Josee Heme: Remy ID: [id number] Time Spent in preparation of Discharge (in minutes): 45 Diagnosis - Discharge Diagnosis (1) Atrial fibrillation Status: Acute (2) CHF (congestive heart failure) Status: Acute (3) Choledocholithiasis with obstruction Status: Acute (4) Elevated LFTs Status: Acute (5) Leukocytosis Status: Acute Hospital Course - Lab Results Lab Results: Most Recent Lab Values WBC 23.4 10^3/ul (4.5-11.0) H 03/05/17 06:20 RBC 4.04 10^6/uL (3.5-6.1) 03/05/17 06:20 Hgb 11.4 g/dL (12.0-16.0) L 03/05/17 06:20 Hct 37.1 % (36.0-48.0) 03/05/17 06:20 MCV 91.8 fl (80.0-105.0) 03/05/17 06:20 MCH 28.2 pg (25.0-35.0) 03/05/17 06:20 MCHC 30.7 g/dl (31.0-37.0) L 03/05/17 06:20 RDW 14.4 % (11.5-14.5) 03/05/17 06:20 Plt Count 167 10^3/uL (120.0-450.0) 03/05/17 06:20 MPV 12.4 fl (7.0-11.0) H 03/05/17 06:20 Gran % 20.0 % (50.0-68.0) L 03/05/17 06:20 Lymph % (Auto) 74.8 % (22.0-35.0) H 03/05/17 06:20 [place] % (Auto) 4.2 % (1.0-6.0) 03/05/17 06:20 Eos % (Auto) 0.7 % (1.5-5.0) L 03/05/17 06:20 Baso % (Auto) 0.3 % (0.0-3.0) 03/05/17 06:20 Gran # 4.68 (1.4-6.5) 03/05/17 06:20 Lymph # 17.5 (1.2-3.4) H 03/05/17 06:20 [place] # 1.0 (0.1-0.6) H 03/05/17 06:20 Eos # 0.2 (0.0-0.7) 03/05/17 06:20 Baso # 0.07 K/mm3 (0.0-2.0) 03/05/17 06:20 Neutrophils % (Manual) 30 % (50.0-70.0) L 03/04/17 06:30 Lymphocytes % (Manual) 59 % (22.0-35.0) H 03/04/17 06:30 Atypical Lymphs % 7 % (0.0-0.0) H 03/04/17 06:30 Monocytes % (Manual) 4 % (1.0-6.0) 03/04/17 06:30 Platelet Evaluation Normal (NORMAL) 03/04/17 06:30 Large Platelets Present 03/04/17 06:30 Polychromasia Slight 03/04/17 06:30 Hypochromasia 1+ 03/04/17 06:30 Anisocytosis (manual) 1+ 03/04/17 06:30 PT 12.8 SECONDS (9.4-12.5) H 03/05/17 06:20 INR 1.16 (0.93-1.08) H 03/05/17 06:20 APTT 36.5 Seconds (25.1-36.5) 02/27/17 15:58 pCO2 49 mm/Hg (35-45) H 03/02/17 08:40 pO2 118.0 mm/Hg (80-100) H 03/02/17 08:40 HCO3 20.5 mmol/L (21-28) L 03/02/17 08:40 ABG pH 7.23 (7.35-7.45) L 03/02/17 08:40 ABG Total CO2 22.0 mmol.L (22-28) 03/02/17 08:40 ABG O2 Saturation 99.9 % (95-98) H 03/02/17 08:40 ABG O2 Content 19.3 ML/dl (15-23) 03/02/17 08:40 ABG Base Excess -7.3 mmol/L (-2.0-3.0) L 03/02/17 08:40 ABG Hemoglobin 14.3 g/dL (11.7-17.4) 03/02/17 08:40 ABG Carboxyhemoglobin 3.3 % (0.5-1.5) H 03/02/17 08:40 POC ABG HHb (Measured) 0.1 % (0-5) 03/02/17 08:40 ABG Methemoglobin 1.3 % (0.0-3.0) 03/02/17 08:40 ABG O2 Capacity 19.3 mL/dl (16-24) 03/02/17 08:40 VBG pH 7.43 (7.32-7.43) 02/27/17 16:50 VBG pCO2 44.0 (40-60) 02/27/17 16:50 VBG HCO3 29.2 mmol/l (21-28) H 02/27/17 16:50 VBG Total CO2 30.6 mmol.L (22-28) H 02/27/17 16:50 VBG O2 Sat (Calc) 97.2 % (40-65) H 02/27/17 16:50 VBG Base Excess 4.2 mmol/L (0.0-2.0) H 02/27/17 16:50 VBG Potassium 4.2 mmol/L (3.6-5.2) 02/27/17 16:50 Hgb O2 Saturation 95.3 % (95.0-98.0) 03/02/17 08:40 Sodium 140.0 mmol/L (132-148) 02/27/17 16:50 Chloride 106.0 mmol/L (98-107) 02/27/17 16:50 Glucose 118 mg/dl (65-105) H 02/27/17 16:50 Lactate 1.3 mmol/L (0.7-2.1) 02/27/17 16:50 FiO2 70.0 % 03/02/17 08:40 Sodium 139 mmol/L (132-148) 03/05/17 06:20 Potassium 3.9 mmol/L (3.6-5.0) 03/05/17 06:20 Chloride 102 mmol/L (98-107) 03/05/17 06:20 Carbon Dioxide 34 mmol/L (21-33) H 03/05/17 06:20 Anion Gap 7 (10-20) L 03/05/17 06:20 BUN 19 mg/dL (7-21) 03/05/17 06:20 Creatinine 0.8 mg/dl (0.7-1.2) 03/05/17 06:20 Est GFR ( Amer) > 60 03/05/17 06:20 Est GFR (Non-Af Amer) > 60 03/05/17 06:20 POC Glucose (mg/dL) 224 mg/dL (65-110) H 03/02/17 09:02 Random Glucose 93 mg/dL (70-110) 03/05/17 06:20 Hemoglobin A1c 5.3 % (4.2-6.5) 03/03/17 05:30 Calcium 8.6 mg/dL (8.4-10.5) 03/05/17 06:20 Phosphorus 2.5 mg/dL (2.5-4.5) 03/03/17 05:30 Magnesium 2.0 mg/dL (1.7-2.2) 03/04/17 06:30 Total Bilirubin 1.1 mg/dL (0.2-1.3) 03/05/17 06:20 Direct Bilirubin 2.5 mg/dL (0.0-0.4) H 02/27/17 15:58 AST 63 U/L (14-36) H 03/05/17 06:20 ALT 134 U/L (7-56) H 03/05/17 06:20 Alkaline Phosphatase 198 U/L (38-126) H D 03/05/17 06:20 Lactate Dehydrogenase 1264 U/L (333-699) H 02/27/17 15:58 Total Creatine Kinase 72 U/L (35-230) 02/27/17 15:58 Troponin I < 0.01 ng/mL D 02/27/17 15:58 NT-Pro-B Natriuret Pep 5070 pg/mL (0-450) H 03/02/17 10:13 Total Protein 5.4 g/dL (5.8-8.3) L 03/05/17 06:20 Albumin 2.8 g/dL (3.0-4.8) L 03/05/17 06:20 Globulin 2.5 gm/dL 03/05/17 06:20 Albumin/Globulin Ratio 1.1 (1.1-1.8) 03/05/17 06:20 Triglycerides 79 mg/dL (35-160) 03/03/17 05:30 Cholesterol 157 mg/dL (130-200) 03/03/17 05:30 LDL Cholesterol Direct 61 mg/dL (0-129) 03/03/17 05:30 HDL Cholesterol 60 mg/dL (29-60) 03/03/17 05:30 Lipase 136 U/L (23-300) 02/27/17 15:58 Procalcitonin 0.19 NG/ML (0.19-0.49) 03/02/17 10:16 TSH 3rd Generation 1.26 mIU/mL (0.46-4.68) 03/03/17 05:30 Venous Blood Potassium 4.2 mmol/L (3.6-5.2) 02/27/17 16:50 Urine Color Dark yellow (YELLOW) 02/28/17 18:00 Urine Appearance Slight-cloudy (CLEAR) 02/28/17 18:00 Urine pH 6.5 (4.7-8.0) 02/28/17 18:00 Ur Specific [place] 1.020 (1.005-1.035) 02/28/17 18:00 Urine Protein >=300 mg/dL (<30 mg/dL) H 02/28/17 18:00 Urine Glucose (UA) Negative mg/dL (NEGATIVE) 02/28/17 18:00 Urine Ketones 15 mg/dL (NEGATIVE) H 02/28/17 18:00 Urine Blood Trace-intact (NEGATIVE) H 02/28/17 18:00 Urine Nitrate Negative (NEGATIVE) 02/28/17 18:00 Urine Bilirubin Small (NEGATIVE) H 02/28/17 18:00 Urine Urobilinogen 4.0 E.U./dL (<1 E.U./dL) H 02/28/17 18:00 Ur Leukocyte Esterase Negative Abilio/uL (NEGATIVE) 02/28/17 18:00 Urine RBC 5 - 10 /hpf (0-2) 02/28/17 18:00 Urine WBC 1 - 3 /hpf (0-6) 02/28/17 18:00 Ur Epithelial Cells 4 - 5 /hpf (0-5) 02/28/17 18:00 Amorphous Sediment Few 02/28/17 18:00 Urine Bacteria Mod (NEG) 02/28/17 18:00 Hyaline Casts 0 - 2 /hpf 02/28/17 18:00 Fine Granular Casts 0 - 2 /hpf (0-2) 02/28/17 18:00 Coarse Granular Casts Trace /hpf (0-2) H 02/27/17 17:30 Urine Other Uyeast 02/27/17 17:30 Digoxin 1.3 ng/mL (0.8-2.0) 03/03/17 05:30 DEXTER Screen Negative (Negative) 02/28/17 07:00 Actin IgG Antibody <20 U (<20) 02/28/17 07:00 Liver/Kid Microsomes Ab <=20.0 U (<=20.0) 02/28/17 07:00 Hepatitis A IgM Ab Negative (NEGATIVE) 02/28/17 07:00 Hep Bs Antigen Negative (NEGATIVE) 02/28/17 07:00 Hep B Core IgM Ab Negative (NEGATIVE) 02/28/17 07:00 Hepatitis C Antibody Negative (NEGATIVE) 02/28/17 07:00 HIV-1 Antibody TEST NOT PERFORMED 02/28/17 07:00 HIV-2 Antibody TEST NOT PERFORMED 02/28/17 07:00 HIV 1&2 Ag/Ab, 4th Gen Nonreactive (Nonreactive) 02/28/17 07:00 - Hospital Course Hospital Course: 87 year old female with a past medical history of chronic lymphocytic leukemia, atrial fibrillation, CHF with EF noted to be 28%, who presented to [facility] for right sided back/flank pain. Initial workup significant for transaminitis, bacteruria, and fungiuria. Abdominal US was unremarkable, MRCP showed obstruction of the CBD. Patient was scheduled for ERCP the following day, but had acute respiratory distress 2/2 fluid overload, which responded to BIPAP and lasix. Respiratory status improved and two days later, patient went for ERCP with extraction of a 3.5mm stone in the CBD. Throughout her admission, patient was also treated for atrial fibrillation. Dosages of her medications were controlled for rate control and anticoagulation. Today, patient reports no abdominal pain, nausea, vomiting, diarrhea, chest pain, palpitations, shortness of breath, cough. She tolerated her liquid diet for breakfast and soft diet for lunch. Patient was given supply of medications and all questions were answered to her satisfaction and she was discharged to home. Discharge Exam - Head Exam Head Exam: ATRAUMATIC, NORMOCEPHALIC - Eye Exam Eye Exam: EOMI, Normal appearance. absent: Scleral icterus - ENT Exam ENT Exam: Mucous Membranes Moist - Neck Exam Neck exam: Normal Inspection - Respiratory Exam Respiratory Exam: Clear to PA & Lateral, NORMAL BREATHING PATTERN. absent: Rales, Rhonchi, Wheezes, Respiratory Distress - Cardiovascular Exam Cardiovascular Exam: Irregular Rhythm, +S1, +S2. absent: Tachycardia - GI/Abdominal Exam GI & Abdominal Exam: Normal Bowel Sounds, Soft. absent: Distended, Firm, Guarding, Rebound, Rigid, Tenderness - Extremities Exam Extremities exam: normal inspection - Neurological Exam Neurological exam: Alert, Oriented x3 - Psychiatric Exam Psychiatric exam: Normal Affect, Normal Mood - Skin Skin Exam: Dry, Intact, Warm Discharge Plan - Discharge Medications Prescriptions: Furosemide [Lasix] 40 mg PO DAILY #30 tab Lisinopril [Zestril] 2.5 mg PO DAILY #30 tab metroNIDAZOLE [Flagyl] 500 mg PO Q8 #3 tab Polyethylene Glycol 3350 [Miralax] 17 gm PO DAILY #30 packet Verapamil HCl [Verapamil ER] 180 mg PO DAILY #30 cap24h.pel - Follow Up Plan Condition: STABLE Disposition: HOME/ ROUTINE Instructions: Heart Failure (DC), Atrial Fibrillation (DC), Pulmonary Edema (DC ) Additional Instructions: 1. Continue to take coumadin 5mg daily as prescribed 2. Continue to take verapamil 180mg daily and lisinopril 2.5mg daily as prescribed; stop digoxin 3. Continue to take lasix 40mg PO daily (increased from 20mg PO daily) 3. Continue to take metronidazole (antibiotics) for one more day, as prescribed 4. Follow up with Dr. Clements within one week to check your INR and adjust the coumadin as needed 5. Follow up with your project control analyst as indicated 6. For any new or worsening concerns, contact your PMD immediately or return to ER Referrals: Jac Clements MD [Primary Care Provider] - <Jenny Oliver - Last Filed: 03/06/17 07:39> Provider - Provider Date of Admission: 02/27/17 20:37 Attending physician: Jenny Oliver MD Primary care physician: Jac Clements MD Hospital Course - Lab Results Lab Results: Most Recent Lab Values WBC 23.4 10^3/ul (4.5-11.0) H 03/05/17 06:20 RBC 4.04 10^6/uL (3.5-6.1) 03/05/17 06:20 Hgb 11.4 g/dL (12.0-16.0) L 03/05/17 06:20 Hct 37.1 % (36.0-48.0) 03/05/17 06:20 MCV 91.8 fl (80.0-105.0) 03/05/17 06:20 MCH 28.2 pg (25.0-35.0) 03/05/17 06:20 MCHC 30.7 g/dl (31.0-37.0) L 03/05/17 06:20 RDW 14.4 % (11.5-14.5) 03/05/17 06:20 Plt Count 167 10^3/uL (120.0-450.0) 03/05/17 06:20 MPV 12.4 fl (7.0-11.0) H 03/05/17 06:20 Gran % 20.0 % (50.0-68.0) L 03/05/17 06:20 Lymph % (Auto) 74.8 % (22.0-35.0) H 03/05/17 06:20 [place] % (Auto) 4.2 % (1.0-6.0) 03/05/17 06:20 Eos % (Auto) 0.7 % (1.5-5.0) L 03/05/17 06:20 Baso % (Auto) 0.3 % (0.0-3.0) 03/05/17 06:20 Gran # 4.68 (1.4-6.5) 03/05/17 06:20 Lymph # 17.5 (1.2-3.4) H 03/05/17 06:20 [place] # 1.0 (0.1-0.6) H 03/05/17 06:20 Eos # 0.2 (0.0-0.7) 03/05/17 06:20 Baso # 0.07 K/mm3 (0.0-2.0) 03/05/17 06:20 Neutrophils % (Manual) 30 % (50.0-70.0) L 03/04/17 06:30 Lymphocytes % (Manual) 59 % (22.0-35.0) H 03/04/17 06:30 Atypical Lymphs % 7 % (0.0-0.0) H 03/04/17 06:30 Monocytes % (Manual) 4 % (1.0-6.0) 03/04/17 06:30 Platelet Evaluation Normal (NORMAL) 03/04/17 06:30 Large Platelets Present 03/04/17 06:30 Polychromasia Slight 03/04/17 06:30 Hypochromasia 1+ 03/04/17 06:30 Anisocytosis (manual) 1+ 03/04/17 06:30 PT 12.8 SECONDS (9.4-12.5) H 03/05/17 06:20 INR 1.16 (0.93-1.08) H 03/05/17 06:20 APTT 36.5 Seconds (25.1-36.5) 02/27/17 15:58 pCO2 49 mm/Hg (35-45) H 03/02/17 08:40 pO2 118.0 mm/Hg (80-100) H 03/02/17 08:40 HCO3 20.5 mmol/L (21-28) L 03/02/17 08:40 ABG pH 7.23 (7.35-7.45) L 03/02/17 08:40 ABG Total CO2 22.0 mmol.L (22-28) 03/02/17 08:40 ABG O2 Saturation 99.9 % (95-98) H 03/02/17 08:40 ABG O2 Content 19.3 ML/dl (15-23) 03/02/17 08:40 ABG Base Excess -7.3 mmol/L (-2.0-3.0) L 03/02/17 08:40 ABG Hemoglobin 14.3 g/dL (11.7-17.4) 03/02/17 08:40 ABG Carboxyhemoglobin 3.3 % (0.5-1.5) H 03/02/17 08:40 POC ABG HHb (Measured) 0.1 % (0-5) 03/02/17 08:40 ABG Methemoglobin 1.3 % (0.0-3.0) 03/02/17 08:40 ABG O2 Capacity 19.3 mL/dl (16-24) 03/02/17 08:40 VBG pH 7.43 (7.32-7.43) 02/27/17 16:50 VBG pCO2 44.0 (40-60) 02/27/17 16:50 VBG HCO3 29.2 mmol/l (21-28) H 02/27/17 16:50 VBG Total CO2 30.6 mmol.L (22-28) H 02/27/17 16:50 VBG O2 Sat (Calc) 97.2 % (40-65) H 02/27/17 16:50 VBG Base Excess 4.2 mmol/L (0.0-2.0) H 02/27/17 16:50 VBG Potassium 4.2 mmol/L (3.6-5.2) 02/27/17 16:50 Hgb O2 Saturation 95.3 % (95.0-98.0) 03/02/17 08:40 Sodium 140.0 mmol/L (132-148) 02/27/17 16:50 Chloride 106.0 mmol/L (98-107) 02/27/17 16:50 Glucose 118 mg/dl (65-105) H 02/27/17 16:50 Lactate 1.3 mmol/L (0.7-2.1) 02/27/17 16:50 FiO2 70.0 % 03/02/17 08:40 Sodium 139 mmol/L (132-148) 03/05/17 06:20 Potassium 3.9 mmol/L (3.6-5.0) 03/05/17 06:20 Chloride 102 mmol/L (98-107) 03/05/17 06:20 Carbon Dioxide 34 mmol/L (21-33) H 03/05/17 06:20 Anion Gap 7 (10-20) L 03/05/17 06:20 BUN 19 mg/dL (7-21) 03/05/17 06:20 Creatinine 0.8 mg/dl (0.7-1.2) 03/05/17 06:20 Est GFR ( Amer) > 60 03/05/17 06:20 Est GFR (Non-Af Amer) > 60 03/05/17 06:20 POC Glucose (mg/dL) 224 mg/dL (65-110) H 03/02/17 09:02 Random Glucose 93 mg/dL (70-110) 03/05/17 06:20 Hemoglobin A1c 5.3 % (4.2-6.5) 03/03/17 05:30 Calcium 8.6 mg/dL (8.4-10.5) 03/05/17 06:20 Phosphorus 2.5 mg/dL (2.5-4.5) 03/03/17 05:30 Magnesium 2.0 mg/dL (1.7-2.2) 03/04/17 06:30 Total Bilirubin 1.1 mg/dL (0.2-1.3) 03/05/17 06:20 Direct Bilirubin 2.5 mg/dL (0.0-0.4) H 02/27/17 15:58 AST 63 U/L (14-36) H 03/05/17 06:20 ALT 134 U/L (7-56) H 03/05/17 06:20 Alkaline Phosphatase 198 U/L (38-126) H D 03/05/17 06:20 Lactate Dehydrogenase 1264 U/L (333-699) H 02/27/17 15:58 Total Creatine Kinase 72 U/L (35-230) 02/27/17 15:58 Troponin I < 0.01 ng/mL D 02/27/17 15:58 NT-Pro-B Natriuret Pep 5070 pg/mL (0-450) H 03/02/17 10:13 Total Protein 5.4 g/dL (5.8-8.3) L 03/05/17 06:20 Albumin 2.8 g/dL (3.0-4.8) L 03/05/17 06:20 Globulin 2.5 gm/dL 03/05/17 06:20 Albumin/Globulin Ratio 1.1 (1.1-1.8) 03/05/17 06:20 Triglycerides 79 mg/dL (35-160) 03/03/17 05:30 Cholesterol 157 mg/dL (130-200) 03/03/17 05:30 LDL Cholesterol Direct 61 mg/dL (0-129) 03/03/17 05:30 HDL Cholesterol 60 mg/dL (29-60) 03/03/17 05:30 Lipase 136 U/L (23-300) 02/27/17 15:58 Procalcitonin 0.19 NG/ML (0.19-0.49) 03/02/17 10:16 TSH 3rd Generation 1.26 mIU/mL (0.46-4.68) 03/03/17 05:30 Venous Blood Potassium 4.2 mmol/L (3.6-5.2) 02/27/17 16:50 Urine Color Dark yellow (YELLOW) 02/28/17 18:00 Urine Appearance Slight-cloudy (CLEAR) 02/28/17 18:00 Urine pH 6.5 (4.7-8.0) 02/28/17 18:00 Ur Specific [place] 1.020 (1.005-1.035) 02/28/17 18:00 Urine Protein >=300 mg/dL (<30 mg/dL) H 02/28/17 18:00 Urine Glucose (UA) Negative mg/dL (NEGATIVE) 02/28/17 18:00 Urine Ketones 15 mg/dL (NEGATIVE) H 02/28/17 18:00 Urine Blood Trace-intact (NEGATIVE) H 02/28/17 18:00 Urine Nitrate Negative (NEGATIVE) 02/28/17 18:00 Urine Bilirubin Small (NEGATIVE) H 02/28/17 18:00 Urine Urobilinogen 4.0 E.U./dL (<1 E.U./dL) H 02/28/17 18:00 Ur Leukocyte Esterase Negative Abilio/uL (NEGATIVE) 02/28/17 18:00 Urine RBC 5 - 10 /hpf (0-2) 02/28/17 18:00 Urine WBC 1 - 3 /hpf (0-6) 02/28/17 18:00 Ur Epithelial Cells 4 - 5 /hpf (0-5) 02/28/17 18:00 Amorphous Sediment Few 02/28/17 18:00 Urine Bacteria Mod (NEG) 02/28/17 18:00 Hyaline Casts 0 - 2 /hpf 02/28/17 18:00 Fine Granular Casts 0 - 2 /hpf (0-2) 02/28/17 18:00 Coarse Granular Casts Trace /hpf (0-2) H 02/27/17 17:30 Urine Other Uyeast 02/27/17 17:30 Digoxin 1.3 ng/mL (0.8-2.0) 03/03/17 05:30 DEXTER Screen Negative (Negative) 02/28/17 07:00 Actin IgG Antibody <20 U (<20) 02/28/17 07:00 Liver/Kid Microsomes Ab <=20.0 U (<=20.0) 02/28/17 07:00 Hepatitis A IgM Ab Negative (NEGATIVE) 02/28/17 07:00 Hep Bs Antigen Negative (NEGATIVE) 02/28/17 07:00 Hep B Core IgM Ab Negative (NEGATIVE) 02/28/17 07:00 Hepatitis C Antibody Negative (NEGATIVE) 02/28/17 07:00 HIV-1 Antibody TEST NOT PERFORMED 02/28/17 07:00 HIV-2 Antibody TEST NOT PERFORMED 02/28/17 07:00 HIV 1&2 Ag/Ab, 4th Gen Nonreactive (Nonreactive) 02/28/17 07:00 Attending/Attestation - Attestation I have personally seen and examined this patient.: Yes I have fully participated in the care of the patient.: Yes I have reviewed all pertinent clinical information, including history, physical exam and plan: Yes Notes (Text): 03/06/17 07:36 87 year old female with past medical history of CLL, afib, and CHF who presented with right sided flank and abdominal pain with transamitis. CT abd/pelvis and MRCP showed CBD stone. She was seen by GI and underwent ERCP/ EUS with CBD stone extraction. Hospital course was complicated with respiratory distress secondary to acute CHF exacerbation which improved with lasix. She was followed by cardiology for CHF/AFib and her medications including coumadin dosing was adjusted. She was seen by her oncologist for history of CLL. Overall her symptoms have improved. She is discharged home to follow up with her pmd and GI. Monitor LFTs and INR for coumadin adjustments as outpatient. Jenny Oliver MD Hospitalist.
--- NOTE | 2017-03-05 23:51 | PN ---
DATE: 03/05/2017 SUBJECTIVE: The patient is seen early this morning in room 374, bed 2. No fevers. No chills. No nausea. PHYSICAL EXAMINATION: VITAL SIGNS: On exam, temperature is 98, blood pressure is 112/70, respirations 16. HEENT: Unremarkable. NECK: Supple. HEART: Normal S1 and S2. LUNGS: Have decreased breath sounds. ABDOMEN: Soft. LABORATORY DATA: [place] [address], hemoglobin of 11, platelets of 167. Chemistries reveals the BUN of 19, creatinine of 0.8 and the urinalysis is noted and microbiology is noted. ASSESSMENT AND PLAN: This is an 87-year-old female who is seen early this morning with biliary tract disease, history of cholecystectomy, appendectomy, common bile duct, endoscopic retrograde cholangiopancreatography yesterday and treated with p.o. antibiotics 24 hours after the endoscopic retrograde cholangiopancreatography. Sigifredo Rowell MD
--- NOTE | 2017-03-06 03:31 | PN ---
DATE: 03/05/2017 SUBJECTIVE: This patient was seen and evaluated earlier today. Discussed with the medical team. PHYSICAL EXAMINATION: GENERAL: On exam, the patient is feeling much better. No complaints of any abdominal pain. VITAL SIGNS: Afebrile, pulse 108, blood pressure is 149/50, and O2 saturation 91%. HEENT: Atraumatic. Slightly jaundiced. NECK: Supple. HEART: S1 and S2 heard. LUNGS: Bilateral air entry present. ABDOMEN: Soft. There was no tenderness. EXTREMITIES: No cyanosis, no clubbing. NEUROLOGICALLY: Alert, awake, and moves all the extremities. LABORATORY DATA: Hemoglobin is 11.4, hematocrit 37.1, WBC count is 23.4, lymphocytes mainly 74%, platelets are 167. Chemistry is essentially unremarkably except chemistry shows AST 63, ALT 134, and alkaline phosphatase is 198, total bilirubin is 1.1. IMPRESSION: This is an 87-year-old patient with chronic lymphocytic leukemia admitted with abdominal pain, elevated liver function tests. Urinalysis showed multiple gallstones. The patient had endoscopic retrograde cholangiopancreatography and removal of the endoscopic retrograde cholangiopancreatography, sphincterotomy, balloon sweep and removal of the stones. There was free flow of the dye noticed. PLAN: Plan to be discharge today. The patient is advised to followup with for repeat labs to be done in next week. If there is any further fever or jaundiced or abdominal pain, the patient was advised to go to the emergency room and discussed with the medical team. The patient's diet will be advanced to low fat soft diet and the patient will be discharged to above mentioned tolerating the diet. Thank you very much for allowing us to participate in the care of the patient. Hu Tripp MD
== END 2017-03-05 16:00 | disposition home or self-care (01) | DRG 871 ==
LOC: ED 15:25 → ERH 20:37 → 3RSO 23:00
PROVIDERS: ADMIT Internal Medicine; ATTEND Internal Medicine
PROC: 0FJB8ZZ Inspection of Hepatobiliary Duct, Via Natural or Artificial Opening Endoscopic (ICD-10-PCS; principal; 2017-03-04 14:00)
PROC: 0DJ08ZZ Inspection of Upper Intestinal Tract, Via Natural or Artificial Opening Endoscopic (ICD-10-PCS; 2017-03-04 14:00)
PROC: 0FC98ZZ Extirpation of Matter from Common Bile Duct, Via Natural or Artificial Opening Endoscopic (ICD-10-PCS; 2017-03-04 14:00)
DX: A41.9 Sepsis, unspecified organism (principal); I50.23 Acute on chronic systolic (congestive) heart failure; C91.10 Chronic lymphocytic leukemia of B-cell type not having achieved remission; D89.9 Disorder involving the immune mechanism, unspecified; I27.20 Pulmonary hypertension, unspecified; I42.0 Dilated cardiomyopathy; K80.51 Calculus of bile duct without cholangitis or cholecystitis with obstruction; N39.0 Urinary tract infection, site not specified; I25.5 Ischemic cardiomyopathy; I25.10 Atherosclerotic heart disease of native coronary artery without angina pectoris; E78.00 Pure hypercholesterolemia, unspecified; I08.0 Rheumatic disorders of both mitral and aortic valves; I11.0 Hypertensive heart disease with heart failure; J44.9 Chronic obstructive pulmonary disease, unspecified; I48.2 Chronic atrial fibrillation; R09.02 Hypoxemia; R79.1 Abnormal coagulation profile; Z79.01 Long term (current) use of anticoagulants; Z87.01 Personal history of pneumonia (recurrent); Z87.891 Personal history of nicotine dependence; Z90.49 Acquired absence of other specified parts of digestive tract; R40.2412 Glasgow coma scale score 13-15, at arrival to emergency department; M19.90 Unspecified osteoarthritis, unspecified site; K29.70 Gastritis, unspecified, without bleeding

== ENCOUNTER 2017-03-16 11:00 | Inpatient (IN) | payer MEDICARE ==
[2017-03-16] MEDS ORDERED: Albuterol-Ipratrop 3 mg / 0.5 (3 ml) UD ONE (11:10)
[2017-03-16] MEDS ORDERED: Albuterol-Ipratrop 3 mg / 0.5 (3 ml) UD IH STA (11:17)
[2017-03-16 11:26] LABS: VENOUS BLOOD GAS BASE EXCESS -6.5 mmol/L (0.0-2.0)
[2017-03-16 11:27] LABS: BASO % 0.3 % (0.0-3.0); EOS # 0.4 (0.0-0.7); EOS % 0.6 % (1.5-5.0); GRAN % 13.4 % (50.0-68.0); HEMATOCRIT 47.9 % (36.0-48.0); LYMPH # 54.7 (1.2-3.4); LYMPH % 83.1 % (22.0-35.0); MEAN CELL VOLUME 94.9 fl (80.0-105.0); MEAN CORPUSCULAR HEMOGLOBIN 29.3 pg (25.0-35.0); MEAN CORPUSCULAR HGB CONC 30.9 g/dl (31.0-37.0); MEAN PLATELET VOLUME 11.9 fl (7.0-11.0); MONO # 1.7 (0.1-0.6); MONO % 2.6 % (1.0-6.0); PLATELET COUNT 441 10^3/uL (120.0-450.0); RED CELL DISTRIBUTION WIDTH 15.1 % (11.5-14.5)
[2017-03-16 11:33] LABS: ARTERIAL BLOOD GAS HCO3 19.9 mmol/L (21-28); ARTERIAL BLOOD GAS O2 CAPACITY 17.5 mL/dl (16-24); ARTERIAL BLOOD GAS O2 CONTENT 17.6 ML/dl (15-23); ARTERIAL BLOOD HGB O2 SAT 97.6 % (95.0-98.0); CARBOXYHEMOGLOBIN 2.3 % (0.5-1.5); HHB -0.5 % (0-5); METHEMOGLOBIN 0.7 % (0.0-3.0)
[2017-03-16 11:33] LABS: VENOUS BLOOD PH 7.12 (7.32-7.43)
[2017-03-16 11:35] LABS: WHITE BLOOD COUNT 65.9 10^3/ul (4.5-11.0)
[2017-03-16] MEDS: diltiaZEM IVPB 100mg in NS 100 ML IV PRN ×2 (11:37→14:16)
[2017-03-16 11:38] LABS: INR 1.83 (0.93-1.08); PARTIAL THROMBOPLASTIN TIME 33.3 Seconds (25.1-36.5)
[2017-03-16] MEDS ORDERED: Vancomycin 1gm in NS 250ml 1 GM/250 ML BAG IVPB STA (11:43)
[2017-03-16] MEDS ORDERED: Piperacillin/Tazobact 3.375 gm 100 ML IVPB STA (11:43)
--- NOTE | 2017-03-16 11:43 | ED PDOC ---
Arrival/HPI - General Chief Complaint: Respiratory Distress Time Seen by Provider: 03/16/17 11:10 Historian: Patient, EMS - Critical Care Critical Care Minutes: 45 minutes Critical Care Time: Excluding Proc Time - History of Present Illness Narrative History of Present Illness (Text): 03/16/17 11:37 A 87 year old female, whose past medical history includes CLL, atrial fibrillation, CHF, COPD, brought into the emergency department by EMS for shortness of breath prior. EMS found patient in respiratory distress started her on BiPAP and accessed IV line. MD at bedside upon patient's arrival. Patient in respiratory distress, able to shake head yes and no to answer questions. She complains of shortness of breath but denies chest pain. History limited by physical condition. Prior charts reviewed, patient had recent admission for stone in CBD complicated by respiratory distress that responded to BiPAP and lasix. PMD: Dr. Clements Time/Duration: Prior to Arrival Symptom Course: Unchanged Context: Home Past Medical History - Provider Review Nursing Documentation Reviewed: Yes - Infectious Disease Hx of Infectious Diseases: None - Cardiac Hx Cardiac Disorders: Yes Hx Cardiac Arrhythmia: Yes (Afib) Hx Congestive Heart Failure: Yes Hx Hypertension: Yes - Pulmonary Hx Respiratory Disorders: Yes Hx Chronic Obstructive Pulmonary Disease (COPD): Yes Hx Pneumonia: Yes - Neurological Hx Neurological Disorder: No - HEENT Hx HEENT Disorder: No - Renal Hx Renal Disorder: No - Endocrine/Metabolic Hx Endocrine Disorders: No - Hematological/Oncological Hx Blood Transfusions: Yes - Integumentary Hx Dermatological Disorder: No - Musculoskeletal/Rheumatological Hx Musculoskeletal Disorders: Yes Hx Falls: Yes Hx Fractures: Yes (R elbow) - Gastrointestinal Hx Gastrointestinal Disorders: No - Genitourinary/Gynecological Hx Genitourinary Disorders: No - Psychiatric Hx Psychophysiologic Disorder: No Hx Substance Use: No - Surgical History Hx Appendectomy: Yes Hx Cholecystectomy: Yes Other/Comment: tonsillectomy - Anesthesia Hx Anesthesia Reactions: No - Suicidal Assessment Feels Threatened In Home Enviroment: No Family/Social History - Physician Review Nursing Documentation Reviewed: Yes Family/Social History: No Known Family HX Smoking Status: Never Smoked Hx Alcohol Use: No Hx Substance Use: No Allergies/Home Meds Allergies/Adverse Reactions: Allergies No Known Allergies Allergy (Verified 03/16/17 11:26) Home Medications: Home Meds Medication Instructions Recorded Confirmed Warfarin [Coumadin] 5 mg PO DAILY 10/30/11 03/16/17 Albuterol Sulfate [Proair Hfa] 2 inh INH QID 07/02/15 03/16/17 Cholecalciferol (Vitamin D3) 1 tab PO DAILY 02/27/17 03/16/17 [Vitamin D3] Cyanocobalamin [Vitamin B12] 250 mcg PO DAILY 02/27/17 03/16/17 Review of Systems - Review of Systems Systems not reviewed;Unavailable: Acuity of Condition Respiratory: SOB Cardiovascular: absent: Chest Pain Gastrointestinal: absent: Abdominal Pain, Constipation, Diarrhea, Nausea, Vomiting Physical Exam Vital Signs Reviewed: Yes Vital Signs Temp Pulse Resp BP Pulse Ox 03/16/17 13:51 92 H 03/16/17 13:45 125/51 L 03/16/17 13:18 84 24 128/42 L 93 L 03/16/17 12:00 24 99 03/16/17 11:37 151 H 111/84 03/16/17 11:16 154 H 112/81 03/16/17 11:05 158 H 03/16/17 11:04 142/81 03/16/17 11:01 97.3 F L 156 H 26 H 142/81 96 Temperature: Afebrile (rectally) Blood Pressure: Normal Pulse: Tachycardic Respiratory Rate: Tachypneic Appearance: Positive for: Ill-Appearing, Uncomfortable Pain Distress: None Mental Status: Positive for: Alert and Oriented X 3 - Systems Exam Head: Present: Atraumatic, Normocephalic Pupils: Present: PERRL Extroacular Muscles: Present: EOMI Conjunctiva: Present: Normal Mouth: Present: Moist Mucous Membranes Neck: Present: Normal Range of Motion. No: Meningeal Signs Respiratory/Chest: Present: Respiratory Distress, Rales (bilaterally), Tachypneic. No: Accessory Muscle Use Cardiovascular: Present: Irregular Rhythm, Tachycardic. No: Murmurs Abdomen: No: Tenderness, Distention, Peritoneal Signs Upper Extremity: Present: Normal Inspection. No: Cyanosis, Edema Lower Extremity: Present: Normal Inspection. No: Edema, CALF TENDERNESS Neurological: Present: GCS=15, CN II-XII Intact Skin: Present: Warm, Dry, Normal Color. No: Rashes Psychiatric: Present: Alert, Oriented x 3, Normal Insight, Normal Concentration Medical Decision Making ED Course and Treatment: 03/16/17 11:37 Impression: A 87 year old female brought in for respiratory distress. Patient complains of shortness of breath, no chest pain. Plan: -- Chest xray -- EKG -- Labs -- Blood and Urine culture -- Urinalysis -- BiPAP, Duoneb, Aspirin, Cardizem, Lasix, Solumedrol, Nitroglycerin, Vancomycin, Zosyn -- Reassess and disposition Progress Notes: Patient seen upon arrival. BiPAP continued, Lasix 80mg IV x1 and Nitroglycerin SL x 2 given for acute pulmonary edema and respiratory distress. Cardizem and bolus drip started for rapid afib. Aspirin given rectally. Solumedrol and nebulizer given incase of some component of COPD. EKG shows atrial fibrillation at 157 BPM with PVCs, LBBB. Interpreted by me. 03/16/17 11:54 Chest xray shows "Ill-defined perihilar opacity bilaterally, suspicious for pulmonary edema." WBC elevated. Patient has a known history of CLL but WBC increased from 1 week ago. Lactic acid of 4, patient meets code sepsis criteria will start on broad spectrum antibiotics. Blood cultures ordered. Influenza ordered. Rectal temperature afebrile. Will not give 30cc/kg fluid bolus at this time due to respiratory distress from fluid overload/heart failure and any IVF would immediately require intubation and ?code status and likelihood that due to age and co-morbidities, patient would not be able to be extubated, and patient's more primary concern seems to be fluid overload causing respiratory failure. Spoke to ICU and also requesting no fluids. Elevated lactate could be from tachycardia. ABG results reviewed, PO2 of 330, PCO3 of 51. BiPAP settings changed accordingly. Trop negative. BNP elevated. Case discussed with Dr. Oliver, covering for Dr. Clements, who is in agreement with plan. Spoke with ICU, who accepts admission. Requesting digoxin 0.25 IV stat - Critical Care Critical Care Minutes: 45 minutes - Lab Interpretations Lab Results: 03/16/17 11:14 03/16/17 11:14 Lab Results 03/16/17 11:25: pCO2 51 H, pO2 330.0 H, HCO3 19.9 L, ABG pH 7.20 L, ABG Total CO2 21.5 L, ABG O2 Saturation 100.5 H, ABG O2 Content 17.6, ABG Base Excess - 8.2 L, ABG Hemoglobin 12.2, ABG Carboxyhemoglobin 2.3 H, POC ABG HHb (Measured) -0.5 L, ABG Methemoglobin 0.7, ABG O2 Capacity 17.5, Hgb O2 Saturation 97.6, FiO2 100.0 03/16/17 11:14: pO2 78 H, VBG pH 7.12 L*, VBG pCO2 75.0 H*, VBG HCO3 24.4, VBG Total CO2 26.7, VBG O2 Sat (Calc) 95.0 H, VBG Base Excess -6.5 L, VBG Potassium 3.9, Sodium 140.0, Chloride 102.0, Glucose 205 H, Lactate 4.0 H*, FiO2 21.0, Venous Blood Potassium 3.9 03/16/17 11:14: Sodium 142, Chloride 103, Potassium 4.4, Carbon Dioxide 25, Anion Gap 19, BUN 20, Creatinine 1.1, Est GFR ( Amer) 57, Est GFR (Non- Af Amer) 47, Random Glucose 196 H, Calcium 9.7, Phosphorus 4.7 H, Magnesium 2.5 H, Total Bilirubin 1.1, AST 34, ALT 46, Alkaline Phosphatase 163 H, Lactate Dehydrogenase 769 H, Total Creatine Kinase 63, Troponin I 0.03 D, NT-Pro-B Natriuret Pep 4160 H, Total Protein 7.8, Albumin 4.5, Globulin 3.3, Albumin/ Globulin Ratio 1.4 03/16/17 11:14: PT 20.4 H, INR 1.83 H, APTT 33.3 03/16/17 11:14: WBC 65.9 H* D, RBC 5.05, Hgb 14.8 D, Hct 47.9, MCV 94.9 D, MCH 29.3, MCHC 30.9 L, RDW 15.1 H, Plt Count 441, MPV 11.9 H, Gran % 13.4 L, Lymph % (Auto) 83.1 H, [place] % (Auto) 2.6, Eos % (Auto) 0.6 L, Baso % (Auto) 0.3 , Gran # 8.90 H, Lymph # 54.7 H, [place] # 1.7 H, Eos # 0.4, Baso # 0.20, Neutrophils % (Manual) 15 L, Lymphocytes % (Manual) 81 H, Monocytes % (Manual) 3 , Eosinophils % (Manual) 1, Platelet Evaluation High, Anisocytosis (manual) 1+ I have reviewed the lab results: Yes - RAD Interpretation Radiology Orders: 03/16/17 11:06 CHEST PORTABLE [RAD] Stat - Medication Orders Current Medication Orders: Enoxaparin Sodium (Lovenox) 50 mg SC Q12H LUCIA PRN Reason: Protocol Furosemide (Lasix) 40 mg IVP Q12 LUCIA Last Admin: 03/16/17 13:45 Dose: diltiaZEM IVPB 100mg in NS (Cardizem 100mg In Ns) 100 mls @ 5 mls/hr IV .Q20H PRN; Protocol; 5 MG/HR PRN Reason: TITRATE PER MD ORDER Last Admin: 03/16/17 11:37 Dose: 5 mls/hr eMAR Start Stop Document 03/16/17 11:37 RG (Rec: 03/16/17 11:37 RG [id number]) Intravenous Solution Start Date 03/16/17 Start Time 11:37 End Date 03/16/17 MAR Pulse and Blood Pressure Document 03/16/17 11:37 RG (Rec: 03/16/17 11:37 RG [id number]) Pulse Pulse Rate (60-90) 151 Blood Pressure Blood Pressure (100/60-150/90) 111/84 Cefepime HCl (Maxipime 1gm) 1 gm in 100 mls @ 100 mls/hr IVPB DAILY LUCIA PRN Reason: Protocol Azithromycin (Zithromax 500mg In Ns) 500 mg in 250 mls @ 167 mls/hr IVPB DAILY LUCIA PRN Reason: Protocol Discontinued Medications Albuterol/Ipratropium (Duoneb 3 Mg/0.5 Mg (3 Ml) Ud) 3 ml IH STAT STA Stop: 03/16/17 11:18 Last Admin: 03/16/17 11:17 Dose: 3 ml Aspirin (Aspirin Chewable) 324 mg PO STAT STA Stop: 03/16/17 11:12 Last Admin: 03/16/17 11:43 Dose: Digoxin (Lanoxin) 0.25 mg IVP STAT STA Stop: 03/16/17 12:07 Last Admin: 03/16/17 12:44 Dose: 0.25 mg MAR Apical Pulse Rate Document 03/16/17 12:44 RG (Rec: 03/16/17 12:45 RG [id number]) Apical Pulse Rate Apical Pulse Rate (60-90 beats/min) 111 IVP Administration Document 03/16/17 12:44 RG (Rec: 03/16/17 12:45 RG [id number]) Charges for Administration # of IVP Administrations 1 Diltiazem HCl (Cardizem) 15 mg IVP STAT STA Stop: 03/16/17 11:17 Last Admin: 03/16/17 11:16 Dose: 15 mg IVP Administration Document 03/16/17 11:16 RG (Rec: 03/16/17 11:37 RG [id number]) Charges for Administration # of IVP Administrations 1 MAR Pulse and Blood Pressure Document 03/16/17 11:16 RG (Rec: 03/16/17 11:37 RG [id number]) Pulse Pulse Rate (60-90) 154 Blood Pressure Blood Pressure (100/60-150/90) 112/81 Furosemide (Lasix) 80 mg IVP STAT STA Stop: 03/16/17 11:12 Last Admin: 03/16/17 11:04 Dose: 80 mg MAR Blood Pressure Document 03/16/17 11:04 RG (Rec: 03/16/17 11:42 RG [id number]) Blood Pressure Blood Pressure (100/60-150/90) 142/81 IVP Administration Document 03/16/17 11:04 RG (Rec: 03/16/17 11:42 RG [id number]) Charges for Administration # of IVP Administrations 1 Furosemide (Lasix) 80 mg IVP ONCE ONE Stop: 03/16/17 13:43 Last Admin: 03/16/17 13:45 Dose: 80 mg MAR Blood Pressure Document 03/16/17 13:45 JUAN (Rec: 03/16/17 13:45 JUAN [facility]) Blood Pressure Blood Pressure (100/60-150/90) 125/51 IVP Administration Document 03/16/17 13:45 JUAN (Rec: 03/16/17 13:45 JUAN [facility]) Charges for Administration # of IVP Administrations 1 Vancomycin HCl (Vancomycin 1gm) 1 gm in 250 mls @ 167 mls/hr IVPB STAT STA PRN Reason: Protocol Stop: 03/16/17 13:12 Last Admin: 03/16/17 13:15 Dose: 167 mls/hr eMAR Start Stop Document 03/16/17 13:15 RG (Rec: 03/16/17 13:23 RG [id number]) Intravenous Solution Start Date 03/16/17 Start Time 13:15 End Date 03/16/17 Piperacillin Sod/Tazobactam Sod (Zosyn 3.375 In Ns 100ml) 100 mls @ 200 mls/hr IVPB STAT STA PRN Reason: Protocol Stop: 03/16/17 12:12 Last Admin: 03/16/17 12:22 Dose: 200 mls/hr eMAR Start Stop Document 03/16/17 12:22 RG (Rec: 03/16/17 12:27 RG [id number]) Intravenous Solution Start Date 03/16/17 Start Time 12:15 Methylprednisolone (Solu-Medrol) 125 mg IVP STAT STA Stop: 03/16/17 11:20 Last Admin: 03/16/17 11:20 Dose: 125 mg IVP Administration Document 03/16/17 11:20 RG (Rec: 03/16/17 12:34 RG [id number]) Charges for Administration # of IVP Administrations 1 Nitroglycerin (Nitrostat Sl Tab) 0.3 mg SL STAT STA Stop: 03/16/17 11:12 Last Admin: 03/16/17 11:35 Dose: 0.3 mg Nitroglycerin (Nitrostat Sl Tab) 0.3 mg SL STAT STA Stop: 03/16/17 11:31 Last Admin: 03/16/17 11:30 Dose: 0.3 mg Ondansetron HCl (Zofran Inj) 4 mg IVP STAT STA Stop: 03/16/17 12:27 Last Admin: 03/16/17 12:28 Dose: 4 mg IVP Administration Document 03/16/17 12:28 RG (Rec: 03/16/17 13:23 RG [id number]) Charges for Administration # of IVP Administrations 1 - Scribe Statement The provider has reviewed the documentation as recorded by the Scribe Josette Youngblood Provider Scribe Attestation: All medical record entries made by the Scribe were at my direction and personally dictated by me. I have reviewed the chart and agree that the record accurately reflects my personal performance of the history, physical exam, medical decision making, and the department course for this patient. I have also personally directed, reviewed, and agree with the discharge instructions and disposition. Disposition/Present on Arrival - Present on Arrival Any Indicators Present on Arrival: No History of DVT/PE: No History of Uncontrolled Diabetes: No Urinary Catheter: No History of Decub. Ulcer: No History Surgical Site Infection Following: None - Disposition Have Diagnosis and Disposition been Completed?: Yes Diagnosis: CHF (congestive heart failure), Respiratory distress, Shortness of breath Disposition: HOSPITALIZED Disposition Time: 12:25 Patient Plan: Admission Patient Problems: Current Active Problems Problem Status Onset Respiratory distress Acute CHF (congestive heart failure) Acute Condition: CRITICAL
[2017-03-16 11:48] LABS: TROPONIN I 0.03 ng/mL
[2017-03-16 11:52] LABS: ALB/GLOB RATIO 1.4 (1.1-1.8); BILIRUBIN,TOTAL 1.1 mg/dL (0.2-1.3); CALCIUM 9.7 mg/dL (8.4-10.5); MAGNESIUM 2.5 mg/dL (1.7-2.2); PHOSPHOROUS 4.7 mg/dL (2.5-4.5); POTASSIUM 4.4 mmol/L (3.6-5.0); TOTAL PROTEIN 7.8 g/dL (5.8-8.3)
[2017-03-16] MEDS ORDERED: Digoxin 500 mcg/2ml (0.5 mg/2ml) Inj IVP STA (12:06)
--- NOTE | 2017-03-16 13:00 | CP.PCM.CON ---
History of Present Illness - History of Present Illness History of Present Illness: CRITICAL CARE PROGRESS NOTE HPI: Patient is 87yo female with PMHx of CHF EF 30%, Afib on A/C, Coumadin, CLL, presents with SOB. As per the ER staff, patient called EMS, found to be in resp distress placed on BIPAP, given Slumedrol, IV Lasix, and NTG SL. Pt is currently on BIPAP, 16//60%, found to be in Afib with RVR, given Cardizem IVP, and start on Cardizem drip. Pt is awake, alert, following commands, not providing extensive history. No other constitutional symptoms. PMHx CHF, Afib, CLL PSHx as above Allergies NKDA Meds as per EMR FHx NC ROS as above Review of Systems - Review of Systems Review of Systems: As per HPI Past Patient History - Infectious Disease Hx of Infectious Diseases: None - Past Social History Smoking Status: Never Smoked - CARDIAC Hx Cardiac Disorders: Yes Hx Cardia Arrhythmia: Yes (Afib) Hx Congestive Heart Failure: Yes Hx Hypertension: Yes - PULMONARY Hx Respiratory Disorders: Yes Hx Chronic Obstructive Pulmonary Disease (COPD): Yes Hx Pneumonia: Yes - NEUROLOGICAL Hx Neurological Disorder: No - HEENT Hx HEENT Problems: No - RENAL Hx Chronic Kidney Disease: No - ENDOCRINE/METABOLIC Hx Endocrine Disorders: No - HEMATOLOGICAL/ONCOLOGICAL Hx Blood Transfusions: Yes - INTEGUMENTARY Hx Dermatological Problems: No - MUSCULOSKELETAL/RHEUMATOLOGICAL Hx Musculoskeletal Disorders: Yes Hx Falls: Yes Hx Fractures: Yes (R elbow) - GASTROINTESTINAL Hx Gastrointestinal Disorders: No - GENITOURINARY/GYNECOLOGICAL Hx Genitourinary Disorders: No - PSYCHIATRIC Hx Psychophysiologic Disorder: No Hx Substance Use: No - SURGICAL HISTORY Hx Appendectomy: Yes Hx Cholecystectomy: Yes Other/Comment: tonsillectomy - ANESTHESIA Hx Anesthesia Reactions: No Meds Allergies/Adverse Reactions: Allergies Allergy/AdvReac Type Severity Reaction Status Date / Time No Known Allergies Allergy Verified 03/16/17 11:26 - Medications Medications: Current Medications Enoxaparin Sodium (Lovenox) 50 mg SC Q12H LUCIA PRN Reason: Protocol Furosemide (Lasix) 40 mg IVP Q12 LUCIA diltiaZEM IVPB 100mg in NS (Cardizem 100mg In Ns) 100 mls @ 5 mls/hr IV .Q20H PRN; Protocol; 5 MG/HR PRN Reason: TITRATE PER MD ORDER Last Admin: 03/16/17 11:37 Dose: 5 mls/hr Vancomycin HCl (Vancomycin 1gm) 1 gm in 250 mls @ 167 mls/hr IVPB STAT STA PRN Reason: Protocol Stop: 03/16/17 13:12 Cefepime HCl (Maxipime 1gm) 1 gm in 100 mls @ 100 mls/hr IVPB Q12 LUCIA PRN Reason: Protocol Azithromycin (Zithromax 500mg In Ns) 500 mg in 250 mls @ 167 mls/hr IVPB DAILY LUCIA PRN Reason: Protocol Physical Exam - Constitutional Appears: Well, No Acute Distress - Head Exam Head Exam: NORMAL INSPECTION - Eye Exam Eye Exam: Normal appearance - ENT Exam ENT Exam: Mucous Membranes Moist - Neck Exam Additional comments: +JVD - Respiratory Exam Respiratory Exam: Prolonged Expiratory Phase, Rales Additional comments: +crackles b/l - Cardiovascular Exam Cardiovascular Exam: Tachycardia, Irregular Rhythm, +S1, +S2 - GI/Abdominal Exam GI & Abdominal Exam: Normal Bowel Sounds, Soft - Extremities Exam Extremities exam: Positive for: normal inspection - Neurological Exam Neurological exam: Alert - Skin Skin Exam: Normal Color Results - Vital Signs Recent Vital Signs: Last Vital Signs Temp 97.3 F L 03/16/17 11:01 Pulse 151 H 03/16/17 11:37 Resp 24 03/16/17 12:00 BP 111/84 03/16/17 11:37 Pulse Ox 99 03/16/17 12:00 - Labs Result Diagrams: 03/16/17 11:14 03/16/17 11:14 Labs: Laboratory Results - last 24 hr 03/16/17 12:27 Influenza Typ A,B (EIA) Negative for flu a/b - Imaging and Cardiology Chest x-ray Status: Image reviewed by me, Report reviewed by me Assessment & Plan - Assessment and Plan (Free Text) Assessment: 87yo female a/w SOB SOB Acute Hypoxic, Hypercapnic resp failure COPD, with hypercapnia, acute Acute on Chronic Decompensated CHF, Systolic Afib with RVR Lactic Acidosis Hx of CLL - currently afebrile, HD stable, SBP 110-120s, on Cardizem drip 10mg/hr, HR 110- 120s Afib - On exam has bilateral rales - CXR with worsening PVC, bilateral alveolar infiltrates likely signifying Pulm edema - Labs with WBC 65k, Lactate 4.0 - patient wishes to be full code Recommend: - cont with BIPAP as tolerated, monitor resp status closely, currently on BIPAP 16//50%, good Oxygenation - patient at high risk for intubation - would give broad spectrum antibiotics for now, given elevated WBC, Lactate 4, Cefepime, Vanco, Azithro - Check procal - Panculture, UCx, BCx, Urine Legionella, Strep - ID eval - Rate control, Cardizem 10mg/hr, given Digoxin 0.25mcg IV x 1 - IV Diuresis, IV Lasix - Lovenox 50mg BID, A/C - Cardiology consult - ECHO - NPO - FS control - GI ppx - DVT ppx critical care time 45 minutes
--- NOTE | 2017-03-16 13:06 | RAD ---
HISTORY: shortness of breath COMPARISON: 03/04/2017 FINDINGS: LUNGS: Examination limited due to steep oblique positioning. Ill-defined perihilar opacity, right greater than left. Nonspecific but consider pulmonary edema. No focal consolidation. PLEURA: No significant pleural effusion identified, no pneumothorax apparent. CARDIOVASCULAR: Normal. OSSEOUS STRUCTURES: No significant abnormalities. VISUALIZED UPPER ABDOMEN: Normal. OTHER FINDINGS: None. IMPRESSION: Limited examination. Ill-defined perihilar opacity bilaterally, suspicious for pulmonary edema. Follow-up advised.
--- NOTE | 2017-03-16 13:10 | CP.PCM.HP ---
<Guille Elena - Last Filed: 03/16/17 15:02> History of Present Illness - History of Present Illness History of Present Illness: CC: Shortness of breath HPI: 87 yo female with PMH of CLL, a-fib, systolic CHF, and COPD called EMS due to shortness of breath. EMS found patient in respiratory distress. EMS placed patient on BIPAP. In the ED, BIPAP was continued at 16/6/60% and given solumedrol, lasix, and nitroglycerin. Pt was also found to be in atrial fibrillation with rapid ventricular rate. Pt was given Cardizem IVP and started on Cardizem drip. Pt was awake and able simple questioning, but had difficulty speaking due to current respiratory status and BIPAP. Thus, further history was limited due to patients current status. Of note, patient was recently admitted early this month for choledocolithiasis. Hospital course was complicated by respiratory distress that was treated with BIPAP and lasix. Pt had echo done which showed LVEF of 27.9%, AR, MR, and pulmonary HTN. PMH: CLL, a-fib, systolic CHF, COPD Surg: cholecystectomy, appendectomy, left breast mass excision All: NKDA FHx: non-contributory SH: Denied tobacco, EtOH, or illicit drug use Meds: Reviewed as per MAY PMD: [place] Present on Admission - Present on Admission Any Indicators Present on Admission: No Review of Systems - Review of Systems Review of Systems: 12 point ROS limited due to patient's respiratory distress Past Patient History - Infectious Disease Hx of Infectious Diseases: None - Past Social History Smoking Status: Never Smoked - CARDIAC Hx Cardiac Disorders: Yes Hx Cardia Arrhythmia: Yes (Afib) Hx Congestive Heart Failure: Yes Hx Hypertension: Yes - PULMONARY Hx Respiratory Disorders: Yes Hx Chronic Obstructive Pulmonary Disease (COPD): Yes Hx Pneumonia: Yes - NEUROLOGICAL Hx Neurological Disorder: No - HEENT Hx HEENT Problems: No - RENAL Hx Chronic Kidney Disease: No - ENDOCRINE/METABOLIC Hx Endocrine Disorders: No - HEMATOLOGICAL/ONCOLOGICAL Hx Blood Transfusions: Yes - INTEGUMENTARY Hx Dermatological Problems: No - MUSCULOSKELETAL/RHEUMATOLOGICAL Hx Musculoskeletal Disorders: Yes Hx Falls: Yes Hx Fractures: Yes (R elbow) - GASTROINTESTINAL Hx Gastrointestinal Disorders: No - GENITOURINARY/GYNECOLOGICAL Hx Genitourinary Disorders: No - PSYCHIATRIC Hx Psychophysiologic Disorder: No Hx Substance Use: No - SURGICAL HISTORY Hx Appendectomy: Yes Hx Cholecystectomy: Yes Other/Comment: tonsillectomy - ANESTHESIA Hx Anesthesia Reactions: No Meds Allergies/Adverse Reactions: Allergies Allergy/AdvReac Type Severity Reaction Status Date / Time No Known Allergies Allergy Verified 03/16/17 11:26 Physical Exam - Constitutional Appears: No Acute Distress (while on BIPAP) - Eye Exam Eye Exam: Normal appearance - ENT Exam ENT Exam: Normal Exam Additional comments: no jvd - Neck Exam Neck exam: Positive for: Normal Inspection - Respiratory Exam Respiratory Exam: Accessory Muscle Use, Rales, Respiratory Distress. absent: Rhonchi, Wheezes - Cardiovascular Exam Cardiovascular Exam: RRR. absent: Diastolic murmur, Gallop, Rubs, Systolic Murmur - GI/Abdominal Exam GI & Abdominal Exam: Soft. absent: Guarding, Rebound, Tenderness - Extremities Exam Extremities exam: Positive for: pedal edema (2/4 b/l) - Neurological Exam Neurological exam: Alert (awake) - Skin Skin Exam: Dry, Intact, Normal Color, Warm Results - Vital Signs Recent Vital Signs: Last Vital Signs Temp 97.3 F L 03/16/17 11:01 Pulse 151 H 03/16/17 11:37 Resp 24 03/16/17 12:00 BP 111/84 03/16/17 11:37 Pulse Ox 99 03/16/17 12:00 - Labs Result Diagrams: 03/16/17 11:14 03/16/17 11:14 Labs: Laboratory Results - last 24 hr 03/16/17 12:27 Influenza Typ A,B (EIA) Negative for flu a/b Assessment & Plan - Assessment and Plan (Free Text) Assessment: 87 yo F with PMH of CLL, A-fib, systolic CHF, and COPD presents with shortness of breath admitted for evaluation and treatment for hypercapnic respiratory failure r/o ischemia. Plan: 1. Hypercapnic respiratory failure 2/2 to CHF exacerbation - Admitted to ICU - Troponin 0.03, will need to r/o acute ischemic process - BNP 4160 - ABG shows respiratory acidosis, f/u VBG shows improved pCO2 - CXR showed perihilar opacity bilaterally, suspicious for pulmonary edema - F/u strep pneumo antigen, cultures, Legionella, procal - Duoneb prn and jazmyne - Lasix 40 mg IVP q12h - Cont Cefepime and Azithromycin - Strict I's and O's - Daily weights 2. A-fib with RVR - Cardio consulted, f/u recs - EKG showed a-fib with RVR and old LBBB - Cont Diltiazem drip - Lovenox started, coumadin held, monitor INR 3. Leukocytosis - CLL vs IV solumedrol vs acute infection - F/u strep pneumo antigen, cultures, Legionella, procal - IV abx 4. Lactic Acidosis - Lactate 4 - Anion gap 14 - Will cont to monitor with respiratory status GI/DVT ppx - Lovenox - Protonix Pt seen and discussed in detail with attending. Craig Elena, PGY1 <Roselyn Luna - Last Filed: 03/16/17 16:51> Results - Vital Signs Recent Vital Signs: Last Vital Signs Temp 97.1 F L 03/16/17 14:04 Pulse 76 03/16/17 16:33 Resp 23 03/16/17 14:00 BP 93/53 L 03/16/17 14:00 Pulse Ox 95 03/16/17 14:00 - Labs Result Diagrams: 03/16/17 11:14 03/16/17 11:14 Labs: Laboratory Results - last 24 hr 03/16/17 03/16/17 03/16/17 12:27 14:50 15:10 pO2 50 VBG pH 7.32 VBG pCO2 46.0 VBG HCO3 23.7 VBG Total CO2 25.1 VBG O2 Sat (Calc) 87.0 H VBG Base Excess -2.6 L VBG Potassium 3.2 L Sodium 140.0 Chloride 103.0 Glucose 236 H Lactate 3.0 H FiO2 21.0 Venous Blood Potassium 3.2 L Urine Color Yellow Urine Appearance Clear Urine pH 6.0 Ur Specific [place] 1.010 Urine Protein Negative Urine Glucose (UA) Negative Urine Ketones Negative Urine Blood Negative Urine Nitrate Negative Urine Bilirubin Negative Urine Urobilinogen 0.2 Ur Leukocyte Esterase Negative Influenza Typ A,B (EIA) Negative for flu a/b Attending/Attestation - Attestation I have personally seen and examined this patient.: Yes I have fully participated in the care of the patient.: Yes I have reviewed all pertinent clinical information: Yes Notes (Text): 03/16/17 16:47 Patient was seen and examined, discussed with medical secretary teacher. Agreed with resident assessment and plan. 87 yo female with PMHx of CHF with systolic dysfunction EF 30%, chronic Afib on oral anticoagulation with Coumadin, CLL, is admitted today with hypercapnic Resp failure due to acute on chronic CHF exacerbation, Patient is also found to have WBC and elevated Lactic acid level , concern for sepsis, also has of CLL, darin lactic acid could be from malignancy. Patient is on IV lasix, on BIPAP, Hypercapnic acidosis is improving.Patient is also on broad spectrum IV antibiotics for sepsis , etiology unclear.We will follow up cultures. AF with RVR on IV Cardizem drip, Heart rate is better controlled. ICU evaluation is appreciated. Prognosis is guarded.
[2017-03-16 13:29] LABS: NEUTROPHIL 15 % (50.0-70.0)
[2017-03-16 13:30] LABS: PLATELET ESTIMATE HIGH (NORMAL)
[2017-03-16 13:31] LABS: ANISOCYTOSIS 1+; EOSINOPHIL 1 % (0.0-3.0)
--- NOTE | 2017-03-16 13:48 | CARD ---
APPROVED REPORT EKG Measurement Heart [id number] <Conclusion> Atrial fibrillation with rapid ventricular response Left bundle branch block
[2017-03-16 14:56] LABS: VENOUS BLOOD GAS BASE EXCESS -2.6 mmol/L (0.0-2.0); VENOUS BLOOD PH 7.32 (7.32-7.43)
[2017-03-16] MEDS ORDERED: Albuterol-Ipratrop 3 mg / 0.5 (3 ml) UD IH PRN (15:23)
[2017-03-16 15:42] LABS: URINE BILIRUBIN NEGATIVE (NEGATIVE); URINE BLOOD NEGATIVE (NEGATIVE); URINE GLUCOSE (UA) NEGATIVE (NEGATIVE); URINE KETONE NEGATIVE (NEGATIVE); URINE LEUKOCYTE ESTERASE NEGATIVE Leu/uL (NEGATIVE); URINE PROTEIN NEGATIVE mg/dL (<30 mg/dL); URINE UROBILINOGEN 0.2 E.U./dL (<1 E.U./dL)
[2017-03-16 15:57] LABS: URINE APPEARANCE CLEAR (CLEAR); URINE COLOR YELLOW (YELLOW)
[2017-03-16] MEDS ORDERED: DOBUTamine 500mg/250ml D5W 500 MG/250 ML BAG IV PRN (16:08)
[2017-03-16] MEDS ORDERED: DOBUTamine 500mg/250ml D5W 500 MG/250 ML BAG ONE (16:11)
[2017-03-16] MEDS: Enoxaparin 60 mg Syringe SC SCH (16:20)
--- NOTE | 2017-03-16 17:02 | PCM.SEPTIC ---
Sepsis Progress Note - Reassessment Type Date of Evaluation: 03/16/17 Time of Evaluation: 16:58 Reassessment Type: Non-invasive reassessment - Non Invasive Reassessment Were the most recent vital sign reviewed: Yes Vital Sign (Latest): Temp Pulse Resp BP Pulse Ox 97.1 F L 76 23 93/53 L 95 03/16/17 14:04 03/16/17 16:33 03/16/17 14:00 03/16/17 14:00 03/16/17 14:00 Cardiovascular: Yes: Other (irregular, afib) Respiratory: Yes: Decreased Breath Sounds Capillary Refill: Normal (Less than 2 sec) Pulses: Normal Radial, Normal Dorsalis Pedis, Normal Posterior Tibialis Skin: Warm, Dry Summary - Summary of Event Summary of Event: Patient was not given IVF due to low EF, and CHF exacerbation.
[2017-03-16 19:12] VITALS: BMI 21.1
[2017-03-16] MEDS ORDERED: Pneumococcal 23-Valent Vaccine IM ONE (19:12)
[2017-03-16] MEDS ORDERED: Influenza Vaccine 60 mcg/0.5 mL SYR (4YR UP) IM ONE (19:12)
[2017-03-16] MEDS: Albuterol-Ipratrop 3 mg / 0.5 (3 ml) UD IH SCH (20:26)
[2017-03-16] MEDS: Cefepime 1gm in NS 100ml 1 GM/100 ML BAG IVPB SCH (23:11)
[2017-03-17] MEDS: Enoxaparin 60 mg Syringe SC SCH (00:44)
[2017-03-17] MEDS: Albuterol-Ipratrop 3 mg / 0.5 (3 ml) UD IH SCH ×3 (01:31→13:38)
[2017-03-17 04:26] LABS: HEMATOCRIT 35.8 % (36.0-48.0); MEAN CORPUSCULAR HEMOGLOBIN 29.1 pg (25.0-35.0); MEAN CORPUSCULAR HGB CONC 31.8 g/dl (31.0-37.0); MEAN PLATELET VOLUME 11.6 fl (7.0-11.0); RED CELL DISTRIBUTION WIDTH 14.8 % (11.5-14.5)
[2017-03-17 04:37] LABS: TROPONIN I 0.07 ng/mL
[2017-03-17 04:39] LABS: MEAN CELL VOLUME 91.3 fl (80.0-105.0)
[2017-03-17 04:40] LABS: INR 2.92 (0.93-1.08)
[2017-03-17 05:16] LABS: ALB/GLOB RATIO 1.4 (1.1-1.8); BILIRUBIN,TOTAL 0.9 mg/dL (0.2-1.3); CALCIUM 8.6 mg/dL (8.4-10.5); MAGNESIUM 1.9 mg/dL (1.7-2.2); PHOSPHOROUS 4.6 mg/dL (2.5-4.5); POTASSIUM 3.6 mmol/L (3.6-5.0); TOTAL PROTEIN 5.8 g/dL (5.8-8.3)
--- NOTE | 2017-03-17 08:49 | RAD ---
HISTORY: CHF COMPARISON: 03/16/2017 FINDINGS: LUNGS: No active pulmonary disease. PLEURA: No significant pleural effusion identified, no pneumothorax apparent. CARDIOVASCULAR: Normal. OSSEOUS STRUCTURES: No significant abnormalities. VISUALIZED UPPER ABDOMEN: Normal. OTHER FINDINGS: None. IMPRESSION: No active disease.
[2017-03-17] MEDS: Cefepime 1gm in NS 100ml 1 GM/100 ML BAG IVPB SCH (09:08)
[2017-03-17] MEDS: Azithromycin 500MG/NS 250ml 500 MG/250 ML BAG IVPB SCH (09:13)
--- NOTE | 2017-03-17 10:32 | CP.CCUPN ---
<Mannie Davis - Last Filed: 03/17/17 10:29> CCU Subjective - Physician Review Subjective (Free Text): Pt seen and examined at bedside. Pt doing well overnight with no acute events. Pt titrated off cardizem drip. Denies CP, SOB, N/V/D, fever, chills. CCU Objective - Vital Signs / Intake & Output Vital Signs (Last 4 hours): Vital Signs Pulse Resp BP Pulse Ox 03/17/17 09:13 102 H 03/17/17 09:12 121/50 L 03/17/17 07:10 84 16 100 03/17/17 07:00 93 H 14 100 03/17/17 06:53 69 14 99/52 L 100 03/17/17 06:50 76 15 100 03/17/17 06:40 87 20 99 03/17/17 06:30 83 15 100 Intake and Output (Last 8hrs): Intake & Output 03/16/17 03/17/17 03/17/17 22:59 06:59 14:59 Intake Total 200 Output Total 400 350 Balance -200 -350 Weight 108 lb Intake: IV 200 Right Forearm 200 Output: Urine 400 350 Urethral (Lloyd) 400 350 Other: Voiding Method Indwelling Catheter - Physical Exam Head: Positive for: Atraumatic, Normocephalic Pupils: Positive for: PERRL Extroacular Muscles: Positive for: EOMI Conjunctiva: Positive for: Normal Mouth: Positive for: Moist Mucous Membranes Neck: Positive for: Normal Range of Motion. Negative for: Meningeal Signs Respiratory/Chest: Positive for: Clear to Auscultation, Decreased Breath Sounds , Rales (mild b/l). Negative for: Accessory Muscle Use, Rhonchi Cardiovascular: Positive for: Irregular Rhythm, Tachycardic. Negative for: Murmurs Abdomen: Positive for: Normal Bowel Sounds. Negative for: Tenderness, Distention, Peritoneal Signs Upper Extremity: Positive for: Normal Inspection. Negative for: Cyanosis, Edema Lower Extremity: Positive for: Normal Inspection. Negative for: Edema, CALF TENDERNESS Neurological: Positive for: GCS=15, CN II-XII Intact Skin: Positive for: Warm, Dry, Normal Color. Negative for: Rashes Psychiatric: Positive for: Alert, Oriented x 3, Normal Insight, Normal Concentration - Medications Active Medications: Active Medications Generic Name Dose Route Start Last Admin Trade Name Freq PRN Reason Stop Dose Admin Albuterol/Ipratropium 3 ml 03/16/17 15:23 Duoneb 3 Mg/0.5 Mg (3 Ml) Ud IH Q2H PRN Shortness of Breath Albuterol/Ipratropium 3 ml 03/16/17 20:00 03/17/17 07:14 Duoneb 3 Mg/0.5 Mg (3 Ml) Ud IH 3 ml [id number] LUCIA Administration Diltiazem HCl 30 mg 03/16/17 18:00 03/17/17 09:13 Cardizem PO 30 mg QID LUCIA Administration Furosemide 40 mg 03/16/17 12:31 03/17/17 09:12 Lasix IVP 40 mg Q12 LUCIA Administration Heparin Sodium (Porcine) 5,000 units 03/17/17 10:00 Heparin SC Q12 LUCIA Protocol diltiaZEM IVPB 100mg in NS 100 mls @ 5 mls/hr 03/16/17 11:16 03/16/17 18:35 Cardizem 100mg In Ns IV 0 mg/hr .Q20H PRN 0 mls/hr TITRATE PER MD ORDER Titration Protocol 5 MG/HR Cefepime HCl 1 gm in 100 mls @ 100 mls/hr 03/16/17 22:00 03/17/17 09:08 Maxipime 1gm IVPB 100 mls/hr DAILY LUCIA Administration Protocol Azithromycin 500 mg in 250 mls @ 167 mls/hr 03/17/17 10:00 03/17/17 09:13 Zithromax 500mg In Ns IVPB 167 mls/hr DAILY LUCIA Administration Protocol Pantoprazole Sodium 40 mg 03/17/17 10:00 03/17/17 09:12 Protonix Inj IVP 40 mg DAILY LUCIA Administration - Patient Studies Lab Studies: Lab Studies 03/17/17 03/17/17 03/17/17 Range/Units 04:10 04:10 04:10 WBC (4.5-11.0) 10^3/ul RBC (3.5-6.1) 10^6/uL Hgb (12.0-16.0) g/dL Hct (36.0-48.0) % MCV (80.0-105.0) fl MCH (25.0-35.0) pg MCHC (31.0-37.0) g/dl RDW (11.5-14.5) % Plt Count (120.0-450.0) 10^3/uL MPV (7.0-11.0) fl PT 32.5 H (9.4-12.5) SECONDS INR 2.92 H (0.93-1.08) pO2 (30-55) mm/Hg VBG pH (7.32-7.43) VBG pCO2 (40-60) VBG HCO3 (21-28) mmol/l VBG Total CO2 (22-28) mmol.L VBG O2 Sat (Calc) (40-65) % VBG Base Excess (0.0-2.0) mmol/L VBG Potassium (3.6-5.2) mmol/L Sodium 140 (132-148) mmol/L Chloride 106 (98-107) mmol/L Glucose (65-105) mg/dl Lactate (0.7-2.1) mmol/L FiO2 % Potassium 3.6 (3.6-5.0) mmol/L Carbon Dioxide 25 (21-33) mmol/L Anion Gap 13 (10-20) BUN 29 H (7-21) mg/dL Creatinine 1.3 H (0.7-1.2) mg/dl Est GFR ( Amer) 47 Est GFR (Non-Af Amer) 39 Random Glucose 174 H (70-110) mg/dL Calcium 8.6 (8.4-10.5) mg/dL Phosphorus 4.6 H (2.5-4.5) mg/dL Magnesium 1.9 (1.7-2.2) mg/dL Total Bilirubin 0.9 (0.2-1.3) mg/dL AST 30 (14-36) U/L ALT 39 (7-56) U/L Alkaline Phosphatase 93 (38-126) U/L Troponin I 0.07 ng/mL Total Protein 5.8 (5.8-8.3) g/dL Albumin 3.3 (3.0-4.8) g/dL Globulin 2.5 gm/dL Albumin/Globulin Ratio 1.4 (1.1-1.8) Triglycerides 90 (35-160) mg/dL Cholesterol 159 (130-200) mg/dL LDL Cholesterol Direct 96 (0-129) mg/dL HDL Cholesterol 48 (29-60) mg/dL Procalcitonin (0.19-0.49) NG/ML TSH 3rd Generation 0.53 (0.46-4.68) mIU/mL Venous Blood Potassium (3.6-5.2) mmol/L Urine Color (YELLOW) Urine Appearance (CLEAR) Urine pH (4.7-8.0) Ur Specific [place] (1.005-1.035) Urine Protein (<30 mg/dL) mg/dL Urine Glucose (UA) (NEGATIVE) mg/dL Urine Ketones (NEGATIVE) mg/dL Urine Blood (NEGATIVE) Urine Nitrate (NEGATIVE) Urine Bilirubin (NEGATIVE) Urine Urobilinogen (<1 E.U./dL) E.U./dL Ur Leukocyte Esterase (NEGATIVE) Abilio/uL Influenza Typ A,B (EIA) (NEGATIVE) Ur L.pneumophila Ag (NEGATIVE) 03/17/17 03/16/17 03/16/17 Range/Units 04:10 18:59 15:10 WBC 28.0 H* D (4.5-11.0) 10^3/ul RBC 3.92 (3.5-6.1) 10^6/uL Hgb 11.4 L D (12.0-16.0) g/dL Hct 35.8 L (36.0-48.0) % MCV 91.3 D (80.0-105.0) fl MCH 29.1 (25.0-35.0) pg MCHC 31.8 (31.0-37.0) g/dl RDW 14.8 H (11.5-14.5) % Plt Count 298 (120.0-450.0) 10^3/uL MPV 11.6 H (7.0-11.0) fl PT (9.4-12.5) SECONDS INR (0.93-1.08) pO2 (30-55) mm/Hg VBG pH (7.32-7.43) VBG pCO2 (40-60) VBG HCO3 (21-28) mmol/l VBG Total CO2 (22-28) mmol.L VBG O2 Sat (Calc) (40-65) % VBG Base Excess (0.0-2.0) mmol/L VBG Potassium (3.6-5.2) mmol/L Sodium (132-148) mmol/L Chloride (98-107) mmol/L Glucose (65-105) mg/dl Lactate (0.7-2.1) mmol/L FiO2 % Potassium (3.6-5.0) mmol/L Carbon Dioxide (21-33) mmol/L Anion Gap (10-20) BUN (7-21) mg/dL Creatinine (0.7-1.2) mg/dl Est GFR ( Amer) Est GFR (Non-Af Amer) Random Glucose (70-110) mg/dL Calcium (8.4-10.5) mg/dL Phosphorus (2.5-4.5) mg/dL Magnesium (1.7-2.2) mg/dL Total Bilirubin (0.2-1.3) mg/dL AST (14-36) U/L ALT (7-56) U/L Alkaline Phosphatase (38-126) U/L Troponin I 0.08 D ng/mL Total Protein (5.8-8.3) g/dL Albumin (3.0-4.8) g/dL Globulin gm/dL Albumin/Globulin Ratio (1.1-1.8) Triglycerides (35-160) mg/dL Cholesterol (130-200) mg/dL LDL Cholesterol Direct (0-129) mg/dL HDL Cholesterol (29-60) mg/dL Procalcitonin (0.19-0.49) NG/ML TSH 3rd Generation (0.46-4.68) mIU/mL Venous Blood Potassium (3.6-5.2) mmol/L Urine Color (YELLOW) Urine Appearance (CLEAR) Urine pH (4.7-8.0) Ur Specific [place] (1.005-1.035) Urine Protein (<30 mg/dL) mg/dL Urine Glucose (UA) (NEGATIVE) mg/dL Urine Ketones (NEGATIVE) mg/dL Urine Blood (NEGATIVE) Urine Nitrate (NEGATIVE) Urine Bilirubin (NEGATIVE) Urine Urobilinogen (<1 E.U./dL) E.U./dL Ur Leukocyte Esterase (NEGATIVE) Abilio/uL Influenza Typ A,B (EIA) (NEGATIVE) Ur L.pneumophila Ag Negative (NEGATIVE) 03/16/17 03/16/17 03/16/17 Range/Units 15:10 14:50 14:50 WBC (4.5-11.0) 10^3/ul RBC (3.5-6.1) 10^6/uL Hgb (12.0-16.0) g/dL Hct (36.0-48.0) % MCV (80.0-105.0) fl MCH (25.0-35.0) pg MCHC (31.0-37.0) g/dl RDW (11.5-14.5) % Plt Count (120.0-450.0) 10^3/uL MPV (7.0-11.0) fl PT (9.4-12.5) SECONDS INR (0.93-1.08) pO2 50 (30-55) mm/Hg VBG pH 7.32 (7.32-7.43) VBG pCO2 46.0 (40-60) VBG HCO3 23.7 (21-28) mmol/l VBG Total CO2 25.1 (22-28) mmol.L VBG O2 Sat (Calc) 87.0 H (40-65) % VBG Base Excess -2.6 L (0.0-2.0) mmol/L VBG Potassium 3.2 L (3.6-5.2) mmol/L Sodium 140.0 (132-148) mmol/L Chloride 103.0 (98-107) mmol/L Glucose 236 H (65-105) mg/dl Lactate 3.0 H (0.7-2.1) mmol/L FiO2 21.0 % Potassium (3.6-5.0) mmol/L Carbon Dioxide (21-33) mmol/L Anion Gap (10-20) BUN (7-21) mg/dL Creatinine (0.7-1.2) mg/dl Est GFR ( Amer) Est GFR (Non-Af Amer) Random Glucose (70-110) mg/dL Calcium (8.4-10.5) mg/dL Phosphorus (2.5-4.5) mg/dL Magnesium (1.7-2.2) mg/dL Total Bilirubin (0.2-1.3) mg/dL AST (14-36) U/L ALT (7-56) U/L Alkaline Phosphatase (38-126) U/L Troponin I ng/mL Total Protein (5.8-8.3) g/dL Albumin (3.0-4.8) g/dL Globulin gm/dL Albumin/Globulin Ratio (1.1-1.8) Triglycerides (35-160) mg/dL Cholesterol (130-200) mg/dL LDL Cholesterol Direct (0-129) mg/dL HDL Cholesterol (29-60) mg/dL Procalcitonin 1.23 H (0.19-0.49) NG/ML TSH 3rd Generation (0.46-4.68) mIU/mL Venous Blood Potassium 3.2 L (3.6-5.2) mmol/L Urine Color Yellow (YELLOW) Urine Appearance Clear (CLEAR) Urine pH 6.0 (4.7-8.0) Ur Specific [place] 1.010 (1.005-1.035) Urine Protein Negative (<30 mg/dL) mg/dL Urine Glucose (UA) Negative (NEGATIVE) mg/dL Urine Ketones Negative (NEGATIVE) mg/dL Urine Blood Negative (NEGATIVE) Urine Nitrate Negative (NEGATIVE) Urine Bilirubin Negative (NEGATIVE) Urine Urobilinogen 0.2 (<1 E.U./dL) E.U./dL Ur Leukocyte Esterase Negative (NEGATIVE) Abilio/uL Influenza Typ A,B (EIA) (NEGATIVE) Ur L.pneumophila Ag (NEGATIVE) 03/16/17 Range/Units 12:27 WBC (4.5-11.0) 10^3/ul RBC (3.5-6.1) 10^6/uL Hgb (12.0-16.0) g/dL Hct (36.0-48.0) % MCV (80.0-105.0) fl MCH (25.0-35.0) pg MCHC (31.0-37.0) g/dl RDW (11.5-14.5) % Plt Count (120.0-450.0) 10^3/uL MPV (7.0-11.0) fl PT (9.4-12.5) SECONDS INR (0.93-1.08) pO2 (30-55) mm/Hg VBG pH (7.32-7.43) VBG pCO2 (40-60) VBG HCO3 (21-28) mmol/l VBG Total CO2 (22-28) mmol.L VBG O2 Sat (Calc) (40-65) % VBG Base Excess (0.0-2.0) mmol/L VBG Potassium (3.6-5.2) mmol/L Sodium (132-148) mmol/L Chloride (98-107) mmol/L Glucose (65-105) mg/dl Lactate (0.7-2.1) mmol/L FiO2 % Potassium (3.6-5.0) mmol/L Carbon Dioxide (21-33) mmol/L Anion Gap (10-20) BUN (7-21) mg/dL Creatinine (0.7-1.2) mg/dl Est GFR ( Amer) Est GFR (Non-Af Amer) Random Glucose (70-110) mg/dL Calcium (8.4-10.5) mg/dL Phosphorus (2.5-4.5) mg/dL Magnesium (1.7-2.2) mg/dL Total Bilirubin (0.2-1.3) mg/dL AST (14-36) U/L ALT (7-56) U/L Alkaline Phosphatase (38-126) U/L Troponin I ng/mL Total Protein (5.8-8.3) g/dL Albumin (3.0-4.8) g/dL Globulin gm/dL Albumin/Globulin Ratio (1.1-1.8) Triglycerides (35-160) mg/dL Cholesterol (130-200) mg/dL LDL Cholesterol Direct (0-129) mg/dL HDL Cholesterol (29-60) mg/dL Procalcitonin (0.19-0.49) NG/ML TSH 3rd Generation (0.46-4.68) mIU/mL Venous Blood Potassium (3.6-5.2) mmol/L Urine Color (YELLOW) Urine Appearance (CLEAR) Urine pH (4.7-8.0) Ur Specific [place] (1.005-1.035) Urine Protein (<30 mg/dL) mg/dL Urine Glucose (UA) (NEGATIVE) mg/dL Urine Ketones (NEGATIVE) mg/dL Urine Blood (NEGATIVE) Urine Nitrate (NEGATIVE) Urine Bilirubin (NEGATIVE) Urine Urobilinogen (<1 E.U./dL) E.U./dL Ur Leukocyte Esterase (NEGATIVE) Abilio/uL Influenza Typ A,B (EIA) Negative for flu a/b (NEGATIVE) Ur L.pneumophila Ag (NEGATIVE) Laboratory Results - last 24 hr 03/16/17 03/16/17 03/16/17 12:27 14:50 14:50 WBC RBC Hgb Hct MCV MCH MCHC RDW Plt Count MPV PT INR pO2 50 VBG pH 7.32 VBG pCO2 46.0 VBG HCO3 23.7 VBG Total CO2 25.1 VBG O2 Sat (Calc) 87.0 H VBG Base Excess -2.6 L VBG Potassium 3.2 L Sodium 140.0 Chloride 103.0 Glucose 236 H Lactate 3.0 H FiO2 21.0 Potassium Carbon Dioxide Anion Gap BUN Creatinine Est GFR ( Amer) Est GFR (Non-Af Amer) Random Glucose Calcium Phosphorus Magnesium Total Bilirubin AST ALT Alkaline Phosphatase Troponin I Total Protein Albumin Globulin Albumin/Globulin Ratio Triglycerides Cholesterol LDL Cholesterol Direct HDL Cholesterol Procalcitonin 1.23 H TSH 3rd Generation Venous Blood Potassium 3.2 L Urine Color Urine Appearance Urine pH Ur Specific [place] Urine Protein Urine Glucose (UA) Urine Ketones Urine Blood Urine Nitrate Urine Bilirubin Urine Urobilinogen Ur Leukocyte Esterase Influenza Typ A,B (EIA) Negative for flu a/b Ur L.pneumophila Ag 03/16/17 03/16/17 03/16/17 15:10 15:10 18:59 WBC RBC Hgb Hct MCV MCH MCHC RDW Plt Count MPV PT INR pO2 VBG pH VBG pCO2 VBG HCO3 VBG Total CO2 VBG O2 Sat (Calc) VBG Base Excess VBG Potassium Sodium Chloride Glucose Lactate FiO2 Potassium Carbon Dioxide Anion Gap BUN Creatinine Est GFR ( Amer) Est GFR (Non-Af Amer) Random Glucose Calcium Phosphorus Magnesium Total Bilirubin AST ALT Alkaline Phosphatase Troponin I 0.08 D Total Protein Albumin Globulin Albumin/Globulin Ratio Triglycerides Cholesterol LDL Cholesterol Direct HDL Cholesterol Procalcitonin TSH 3rd Generation Venous Blood Potassium Urine Color Yellow Urine Appearance Clear Urine pH 6.0 Ur Specific [place] 1.010 Urine Protein Negative Urine Glucose (UA) Negative Urine Ketones Negative Urine Blood Negative Urine Nitrate Negative Urine Bilirubin Negative Urine Urobilinogen 0.2 Ur Leukocyte Esterase Negative Influenza Typ A,B (EIA) Ur L.pneumophila Ag Negative 03/17/17 03/17/17 03/17/17 04:10 04:10 04:10 WBC 28.0 H* D RBC 3.92 Hgb 11.4 L D Hct 35.8 L MCV 91.3 D MCH 29.1 MCHC 31.8 RDW 14.8 H Plt Count 298 MPV 11.6 H PT 32.5 H INR 2.92 H pO2 VBG pH VBG pCO2 VBG HCO3 VBG Total CO2 VBG O2 Sat (Calc) VBG Base Excess VBG Potassium Sodium 140 Chloride 106 Glucose Lactate FiO2 Potassium 3.6 Carbon Dioxide 25 Anion Gap 13 BUN 29 H Creatinine 1.3 H Est GFR ( Amer) 47 Est GFR (Non-Af Amer) 39 Random Glucose 174 H Calcium 8.6 Phosphorus 4.6 H Magnesium 1.9 Total Bilirubin 0.9 AST 30 ALT 39 Alkaline Phosphatase 93 Troponin I 0.07 Total Protein 5.8 Albumin 3.3 Globulin 2.5 Albumin/Globulin Ratio 1.4 Triglycerides 90 Cholesterol 159 LDL Cholesterol Direct 96 HDL Cholesterol 48 Procalcitonin TSH 3rd Generation Venous Blood Potassium Urine Color Urine Appearance Urine pH Ur Specific [place] Urine Protein Urine Glucose (UA) Urine Ketones Urine Blood Urine Nitrate Urine Bilirubin Urine Urobilinogen Ur Leukocyte Esterase Influenza Typ A,B (EIA) Ur L.pneumophila Ag 03/17/17 04:10 WBC RBC Hgb Hct MCV MCH MCHC RDW Plt Count MPV PT INR pO2 VBG pH VBG pCO2 VBG HCO3 VBG Total CO2 VBG O2 Sat (Calc) VBG Base Excess VBG Potassium Sodium Chloride Glucose Lactate FiO2 Potassium Carbon Dioxide Anion Gap BUN Creatinine Est GFR ( Amer) Est GFR (Non-Af Amer) Random Glucose Calcium Phosphorus Magnesium Total Bilirubin AST ALT Alkaline Phosphatase Troponin I Total Protein Albumin Globulin Albumin/Globulin Ratio Triglycerides Cholesterol LDL Cholesterol Direct HDL Cholesterol Procalcitonin TSH 3rd Generation 0.53 Venous Blood Potassium Urine Color Urine Appearance Urine pH Ur Specific [place] Urine Protein Urine Glucose (UA) Urine Ketones Urine Blood Urine Nitrate Urine Bilirubin Urine Urobilinogen Ur Leukocyte Esterase Influenza Typ A,B (EIA) Ur L.pneumophila Ag Critical Care Progress Note - Nutrition Nutrition: Nutrition Category Date Time Status Heart Healthy Diet [DIET] Diets 03/17/17 Breakfast Ordered Assessment/Plan - Assessment and Plan (Free Text) Plan: 87 y/o F with PMH with CHF, CLL, and Afib presents with CHF exacerbation in the setting of Afib with RVR. Patient on diuretic therapy and has been converted to oral cardizem. Patient will also be off dobutmaine. Patient will be transferred to telemetry later today. Neuro: AAO x 3 Cardio: Dobutamine off Cardizem 30 qid, PO Afib, rate controlled Will restart home dose warfarin Maintain MAP >65 Pulm: Continue Lasix 40 mg q12h Duonebs pr Maintain O2 sats >90% Continue Cefepime and Azithromycin GI: Protonix for GI ppx heart healthy diet Renal: CASIE, likely secondary to CHF exacerbation Maintain euvolemia Replenish electrolytes as needed Endocrine: Maintain euglycemia ID: Leukocytosis improving Continue abx Maintain normothermia DVT PPX: Heparin Ryan, PGY-2 <Manuelito Randle - Last Filed: 03/17/17 11:18> CCU Objective - Vital Signs / Intake & Output Vital Signs (Last 4 hours): Vital Signs Pulse BP 03/17/17 09:13 102 H 03/17/17 09:12 121/50 L Intake and Output (Last 8hrs): Intake & Output 03/16/17 03/17/17 03/17/17 22:59 06:59 14:59 Intake Total 200 Output Total 400 350 Balance -200 -350 Weight 108 lb Intake: IV 200 Right Forearm 200 Output: Urine 400 350 Urethral (Lloyd) 400 350 Other: Voiding Method Indwelling Catheter - Medications Active Medications: Active Medications Generic Name Dose Route Start Last Admin Trade Name Freq PRN Reason Stop Dose Admin Albuterol/Ipratropium 3 ml 03/16/17 15:23 Duoneb 3 Mg/0.5 Mg (3 Ml) Ud IH Q2H PRN Shortness of Breath Albuterol/Ipratropium 3 ml 03/16/17 20:00 03/17/17 07:14 Duoneb 3 Mg/0.5 Mg (3 Ml) Ud IH 3 ml [id number] LUCIA Administration Digoxin 0.125 mg 03/17/17 14:00 Lanoxin PO 1400 LUCIA Furosemide 40 mg 03/16/17 12:31 03/17/17 09:12 Lasix IVP 40 mg Q12 LUCIA Administration Cefepime HCl 1 gm in 100 mls @ 100 mls/hr 03/16/17 22:00 03/17/17 09:08 Maxipime 1gm IVPB 100 mls/hr DAILY LUCIA Administration Protocol Azithromycin 500 mg in 250 mls @ 167 mls/hr 12/19/17 10:00 03/17/17 09:13 Zithromax 500mg In Ns IVPB 167 mls/hr DAILY LUCIA Administration Protocol Lisinopril 2.5 mg 03/18/17 10:00 Zestril PO DAILY LUCIA Pantoprazole Sodium 40 mg 03/17/17 10:00 03/17/17 09:12 Protonix Inj IVP 40 mg DAILY LUCIA Administration Potassium Chloride 40 meq 03/17/17 11:03 K-Dur 20 Meq Er Tab PO 03/17/17 11:04 ONCE ONE Spironolactone 25 mg 03/17/17 18:00 Aldactone PO BID LUCIA Verapamil HCl 40 mg 03/17/17 11:00 Calan Tab PO Q8H LUCIA Warfarin Sodium 5 mg 03/17/17 18:00 Coumadin PO 1800 LUCIA Protocol - Patient Studies Lab Studies: Lab Studies 03/17/17 03/17/17 03/17/17 Range/Units 04:10 04:10 04:10 WBC (4.5-11.0) 10^3/ul RBC (3.5-6.1) 10^6/uL Hgb (12.0-16.0) g/dL Hct (36.0-48.0) % MCV (80.0-105.0) fl MCH (25.0-35.0) pg MCHC (31.0-37.0) g/dl RDW (11.5-14.5) % Plt Count (120.0-450.0) 10^3/uL MPV (7.0-11.0) fl PT 32.5 H (9.4-12.5) SECONDS INR 2.92 H (0.93-1.08) pO2 (30-55) mm/Hg VBG pH (7.32-7.43) VBG pCO2 (40-60) VBG HCO3 (21-28) mmol/l VBG Total CO2 (22-28) mmol.L VBG O2 Sat (Calc) (40-65) % VBG Base Excess (0.0-2.0) mmol/L VBG Potassium (3.6-5.2) mmol/L Sodium 140 (132-148) mmol/L Chloride 106 (98-107) mmol/L Glucose (65-105) mg/dl Lactate (0.7-2.1) mmol/L FiO2 % Potassium 3.6 (3.6-5.0) mmol/L Carbon Dioxide 25 (21-33) mmol/L Anion Gap 13 (10-20) BUN 29 H (7-21) mg/dL Creatinine 1.3 H (0.7-1.2) mg/dl Est GFR ( Amer) 47 Est GFR (Non-Af Amer) 39 Random Glucose 174 H (70-110) mg/dL Calcium 8.6 (8.4-10.5) mg/dL Phosphorus 4.6 H (2.5-4.5) mg/dL Magnesium 1.9 (1.7-2.2) mg/dL Total Bilirubin 0.9 (0.2-1.3) mg/dL AST 30 (14-36) U/L ALT 39 (7-56) U/L Alkaline Phosphatase 93 (38-126) U/L Troponin I 0.07 ng/mL Total Protein 5.8 (5.8-8.3) g/dL Albumin 3.3 (3.0-4.8) g/dL Globulin 2.5 gm/dL Albumin/Globulin Ratio 1.4 (1.1-1.8) Triglycerides 90 (35-160) mg/dL Cholesterol 159 (130-200) mg/dL LDL Cholesterol Direct 96 (0-129) mg/dL HDL Cholesterol 48 (29-60) mg/dL Procalcitonin (0.19-0.49) NG/ML TSH 3rd Generation 0.53 (0.46-4.68) mIU/mL Venous Blood Potassium (3.6-5.2) mmol/L Urine Color (YELLOW) Urine Appearance (CLEAR) Urine pH (4.7-8.0) Ur Specific [place] (1.005-1.035) Urine Protein (<30 mg/dL) mg/dL Urine Glucose (UA) (NEGATIVE) mg/dL Urine Ketones (NEGATIVE) mg/dL Urine Blood (NEGATIVE) Urine Nitrate (NEGATIVE) Urine Bilirubin (NEGATIVE) Urine Urobilinogen (<1 E.U./dL) E.U./dL Ur Leukocyte Esterase (NEGATIVE) Abilio/uL Influenza Typ A,B (EIA) (NEGATIVE) Ur L.pneumophila Ag (NEGATIVE) 12/03/16/17 03/16/17 Range/Units 04:10 18:59 15:10 WBC 28.0 H* D (4.5-11.0) 10^3/ul RBC 3.92 (3.5-6.1) 10^6/uL Hgb 11.4 L D (12.0-16.0) g/dL Hct 35.8 L (36.0-48.0) % MCV 91.3 D (80.0-105.0) fl MCH 29.1 (25.0-35.0) pg MCHC 31.8 (31.0-37.0) g/dl RDW 14.8 H (11.5-14.5) % Plt Count 298 (120.0-450.0) 10^3/uL MPV 11.6 H (7.0-11.0) fl PT (9.4-12.5) SECONDS INR (0.93-1.08) pO2 (30-55) mm/Hg VBG pH (7.32-7.43) VBG pCO2 (40-60) VBG HCO3 (21-28) mmol/l VBG Total CO2 (22-28) mmol.L VBG O2 Sat (Calc) (40-65) % VBG Base Excess (0.0-2.0) mmol/L VBG Potassium (3.6-5.2) mmol/L Sodium (132-148) mmol/L Chloride (98-107) mmol/L Glucose (65-105) mg/dl Lactate (0.7-2.1) mmol/L FiO2 % Potassium (3.6-5.0) mmol/L Carbon Dioxide (21-33) mmol/L Anion Gap (10-20) BUN (7-21) mg/dL Creatinine (0.7-1.2) mg/dl Est GFR ( Amer) Est GFR (Non-Af Amer) Random Glucose (70-110) mg/dL Calcium (8.4-10.5) mg/dL Phosphorus (2.5-4.5) mg/dL Magnesium (1.7-2.2) mg/dL Total Bilirubin (0.2-1.3) mg/dL AST (14-36) U/L ALT (7-56) U/L Alkaline Phosphatase (38-126) U/L Troponin I 0.08 D ng/mL Total Protein (5.8-8.3) g/dL Albumin (3.0-4.8) g/dL Globulin gm/dL Albumin/Globulin Ratio (1.1-1.8) Triglycerides (35-160) mg/dL Cholesterol (130-200) mg/dL LDL Cholesterol Direct (0-129) mg/dL HDL Cholesterol (29-60) mg/dL Procalcitonin (0.19-0.49) NG/ML TSH 3rd Generation (0.46-4.68) mIU/mL Venous Blood Potassium (3.6-5.2) mmol/L Urine Color (YELLOW) Urine Appearance (CLEAR) Urine pH (4.7-8.0) Ur Specific [place] (1.005-1.035) Urine Protein (<30 mg/dL) mg/dL Urine Glucose (UA) (NEGATIVE) mg/dL Urine Ketones (NEGATIVE) mg/dL Urine Blood (NEGATIVE) Urine Nitrate (NEGATIVE) Urine Bilirubin (NEGATIVE) Urine Urobilinogen (<1 E.U./dL) E.U./dL Ur Leukocyte Esterase (NEGATIVE) Abilio/uL Influenza Typ A,B (EIA) (NEGATIVE) Ur L.pneumophila Ag Negative (NEGATIVE) 03/16/17 03/16/17 03/16/17 Range/Units 15:10 14:50 14:50 WBC (4.5-11.0) 10^3/ul RBC (3.5-6.1) 10^6/uL Hgb (12.0-16.0) g/dL Hct (36.0-48.0) % MCV (80.0-105.0) fl MCH (25.0-35.0) pg MCHC (31.0-37.0) g/dl RDW (11.5-14.5) % Plt Count (120.0-450.0) 10^3/uL MPV (7.0-11.0) fl PT (9.4-12.5) SECONDS INR (0.93-1.08) pO2 50 (30-55) mm/Hg VBG pH 7.32 (7.32-7.43) VBG pCO2 46.0 (40-60) VBG HCO3 23.7 (21-28) mmol/l VBG Total CO2 25.1 (22-28) mmol.L VBG O2 Sat (Calc) 87.0 H (40-65) % VBG Base Excess -2.6 L (0.0-2.0) mmol/L VBG Potassium 3.2 L (3.6-5.2) mmol/L Sodium 140.0 (132-148) mmol/L Chloride 103.0 (98-107) mmol/L Glucose 236 H (65-105) mg/dl Lactate 3.0 H (0.7-2.1) mmol/L FiO2 21.0 % Potassium (3.6-5.0) mmol/L Carbon Dioxide (21-33) mmol/L Anion Gap (10-20) BUN (7-21) mg/dL Creatinine (0.7-1.2) mg/dl Est GFR ( Amer) Est GFR (Non-Af Amer) Random Glucose (70-110) mg/dL Calcium (8.4-10.5) mg/dL Phosphorus (2.5-4.5) mg/dL Magnesium (1.7-2.2) mg/dL Total Bilirubin (0.2-1.3) mg/dL AST (14-36) U/L ALT (7-56) U/L Alkaline Phosphatase (38-126) U/L Troponin I ng/mL Total Protein (5.8-8.3) g/dL Albumin (3.0-4.8) g/dL Globulin gm/dL Albumin/Globulin Ratio (1.1-1.8) Triglycerides (35-160) mg/dL Cholesterol (130-200) mg/dL LDL Cholesterol Direct (0-129) mg/dL HDL Cholesterol (29-60) mg/dL Procalcitonin 1.23 H (0.19-0.49) NG/ML TSH 3rd Generation (0.46-4.68) mIU/mL Venous Blood Potassium 3.2 L (3.6-5.2) mmol/L Urine Color Yellow (YELLOW) Urine Appearance Clear (CLEAR) Urine pH 6.0 (4.7-8.0) Ur Specific [place] 1.010 (1.005-1.035) Urine Protein Negative (<30 mg/dL) mg/dL Urine Glucose (UA) Negative (NEGATIVE) mg/dL Urine Ketones Negative (NEGATIVE) mg/dL Urine Blood Negative (NEGATIVE) Urine Nitrate Negative (NEGATIVE) Urine Bilirubin Negative (NEGATIVE) Urine Urobilinogen 0.2 (<1 E.U./dL) E.U./dL Ur Leukocyte Esterase Negative (NEGATIVE) Abilio/uL Influenza Typ A,B (EIA) (NEGATIVE) Ur L.pneumophila Ag (NEGATIVE) 03/16/17 Range/Units 12:27 WBC (4.5-11.0) 10^3/ul RBC (3.5-6.1) 10^6/uL Hgb (12.0-16.0) g/dL Hct (36.0-48.0) % MCV (80.0-105.0) fl MCH (25.0-35.0) pg MCHC (31.0-37.0) g/dl RDW (11.5-14.5) % Plt Count (120.0-450.0) 10^3/uL MPV (7.0-11.0) fl PT (9.4-12.5) SECONDS INR (0.93-1.08) pO2 (30-55) mm/Hg VBG pH (7.32-7.43) VBG pCO2 (40-60) VBG HCO3 (21-28) mmol/l VBG Total CO2 (22-28) mmol.L VBG O2 Sat (Calc) (40-65) % VBG Base Excess (0.0-2.0) mmol/L VBG Potassium (3.6-5.2) mmol/L Sodium (132-148) mmol/L Chloride (98-107) mmol/L Glucose (65-105) mg/dl Lactate (0.7-2.1) mmol/L FiO2 % Potassium (3.6-5.0) mmol/L Carbon Dioxide (21-33) mmol/L Anion Gap (10-20) BUN (7-21) mg/dL Creatinine (0.7-1.2) mg/dl Est GFR ( Amer) Est GFR (Non-Af Amer) Random Glucose (70-110) mg/dL Calcium (8.4-10.5) mg/dL Phosphorus (2.5-4.5) mg/dL Magnesium (1.7-2.2) mg/dL Total Bilirubin (0.2-1.3) mg/dL AST (14-36) U/L ALT (7-56) U/L Alkaline Phosphatase (38-126) U/L Troponin I ng/mL Total Protein (5.8-8.3) g/dL Albumin (3.0-4.8) g/dL Globulin gm/dL Albumin/Globulin Ratio (1.1-1.8) Triglycerides (35-160) mg/dL Cholesterol (130-200) mg/dL LDL Cholesterol Direct (0-129) mg/dL HDL Cholesterol (29-60) mg/dL Procalcitonin (0.19-0.49) NG/ML TSH 3rd Generation (0.46-4.68) mIU/mL Venous Blood Potassium (3.6-5.2) mmol/L Urine Color (YELLOW) Urine Appearance (CLEAR) Urine pH (4.7-8.0) Ur Specific [place] (1.005-1.035) Urine Protein (<30 mg/dL) mg/dL Urine Glucose (UA) (NEGATIVE) mg/dL Urine Ketones (NEGATIVE) mg/dL Urine Blood (NEGATIVE) Urine Nitrate (NEGATIVE) Urine Bilirubin (NEGATIVE) Urine Urobilinogen (<1 E.U./dL) E.U./dL Ur Leukocyte Esterase (NEGATIVE) Abilio/uL Influenza Typ A,B (EIA) Negative for flu a/b (NEGATIVE) Ur L.pneumophila Ag (NEGATIVE) Laboratory Results - last 24 hr 03/16/17 03/16/17 03/16/17 12:27 14:50 14:50 WBC RBC Hgb Hct MCV MCH MCHC RDW Plt Count MPV PT INR pO2 50 VBG pH 7.32 VBG pCO2 46.0 VBG HCO3 23.7 VBG Total CO2 25.1 VBG O2 Sat (Calc) 87.0 H VBG Base Excess -2.6 L VBG Potassium 3.2 L Sodium 140.0 Chloride 103.0 Glucose 236 H Lactate 3.0 H FiO2 21.0 Potassium Carbon Dioxide Anion Gap BUN Creatinine Est GFR ( Amer) Est GFR (Non-Af Amer) Random Glucose Calcium Phosphorus Magnesium Total Bilirubin AST ALT Alkaline Phosphatase Troponin I Total Protein Albumin Globulin Albumin/Globulin Ratio Triglycerides Cholesterol LDL Cholesterol Direct HDL Cholesterol Procalcitonin 1.23 H TSH 3rd Generation Venous Blood Potassium 3.2 L Urine Color Urine Appearance Urine pH Ur Specific [place] Urine Protein Urine Glucose (UA) Urine Ketones Urine Blood Urine Nitrate Urine Bilirubin Urine Urobilinogen Ur Leukocyte Esterase Influenza Typ A,B (EIA) Negative for flu a/b Ur L.pneumophila Ag 03/16/17 03/16/17 03/16/17 15:10 15:10 18:59 WBC RBC Hgb Hct MCV MCH MCHC RDW Plt Count MPV PT INR pO2 VBG pH VBG pCO2 VBG HCO3 VBG Total CO2 VBG O2 Sat (Calc) VBG Base Excess VBG Potassium Sodium Chloride Glucose Lactate FiO2 Potassium Carbon Dioxide Anion Gap BUN Creatinine Est GFR ( Amer) Est GFR (Non-Af Amer) Random Glucose Calcium Phosphorus Magnesium Total Bilirubin AST ALT Alkaline Phosphatase Troponin I 0.08 D Total Protein Albumin Globulin Albumin/Globulin Ratio Triglycerides Cholesterol LDL Cholesterol Direct HDL Cholesterol Procalcitonin TSH 3rd Generation Venous Blood Potassium Urine Color Yellow Urine Appearance Clear Urine pH 6.0 Ur Specific [place] 1.010 Urine Protein Negative Urine Glucose (UA) Negative Urine Ketones Negative Urine Blood Negative Urine Nitrate Negative Urine Bilirubin Negative Urine Urobilinogen 0.2 Ur Leukocyte Esterase Negative Influenza Typ A,B (EIA) Ur L.pneumophila Ag Negative 03/17/17 03/17/17 03/17/17 04:10 04:10 04:10 WBC 28.0 H* D RBC 3.92 Hgb 11.4 L D Hct 35.8 L MCV 91.3 D MCH 29.1 MCHC 31.8 RDW 14.8 H Plt Count 298 MPV 11.6 H PT 32.5 H INR 2.92 H pO2 VBG pH VBG pCO2 VBG HCO3 VBG Total CO2 VBG O2 Sat (Calc) VBG Base Excess VBG Potassium Sodium 140 Chloride 106 Glucose Lactate FiO2 Potassium 3.6 Carbon Dioxide 25 Anion Gap 13 BUN 29 H Creatinine 1.3 H Est GFR ( Amer) 47 Est GFR (Non-Af Amer) 39 Random Glucose 174 H Calcium 8.6 Phosphorus 4.6 H Magnesium 1.9 Total Bilirubin 0.9 AST 30 ALT 39 Alkaline Phosphatase 93 Troponin I 0.07 Total Protein 5.8 Albumin 3.3 Globulin 2.5 Albumin/Globulin Ratio 1.4 Triglycerides 90 Cholesterol 159 LDL Cholesterol Direct 96 HDL Cholesterol 48 Procalcitonin TSH 3rd Generation Venous Blood Potassium Urine Color Urine Appearance Urine pH Ur Specific [place] Urine Protein Urine Glucose (UA) Urine Ketones Urine Blood Urine Nitrate Urine Bilirubin Urine Urobilinogen Ur Leukocyte Esterase Influenza Typ A,B (EIA) Ur L.pneumophila Ag 03/17/17 04:10 WBC RBC Hgb Hct MCV MCH MCHC RDW Plt Count MPV PT INR pO2 VBG pH VBG pCO2 VBG HCO3 VBG Total CO2 VBG O2 Sat (Calc) VBG Base Excess VBG Potassium Sodium Chloride Glucose Lactate FiO2 Potassium Carbon Dioxide Anion Gap BUN Creatinine Est GFR ( Amer) Est GFR (Non-Af Amer) Random Glucose Calcium Phosphorus Magnesium Total Bilirubin AST ALT Alkaline Phosphatase Troponin I Total Protein Albumin Globulin Albumin/Globulin Ratio Triglycerides Cholesterol LDL Cholesterol Direct HDL Cholesterol Procalcitonin TSH 3rd Generation 0.53 Venous Blood Potassium Urine Color Urine Appearance Urine pH Ur Specific [place] Urine Protein Urine Glucose (UA) Urine Ketones Urine Blood Urine Nitrate Urine Bilirubin Urine Urobilinogen Ur Leukocyte Esterase Influenza Typ A,B (EIA) Ur L.pneumophila Ag EKG/Cardiology Studies: Cardiology / EKG Studies 03/18/17 07:00 ELECTROCARDIOGRAM Routine Comment: paf Reason For Exam: CAD PRE OP:: N Does Patient Have a Pacemaker?: No Critical Care Progress Note - Nutrition Nutrition: Nutrition Category Date Time Status Heart Healthy Diet [DIET] Diets 03/17/17 Breakfast Ordered Assessment/Plan - Assessment and Plan (Free Text) Plan: Patient seen and examined, on rounds with resident, agree with note. Pt is87yo female wPMHx of AFIB on A/C, CHF, a/w Rapid Afib with RVR, CHF exacerbation. Currently afebrile, HD stable, comfortable, OFF BIPAP. 87yo female a/w SOB SOB Acute Hypoxic, Hypercapnic resp failure COPD, with hypercapnia, acute Acute on Chronic Decompensated CHF, Systolic Afib with RVR Lactic Acidosis Hx of CLL Recommend: - cont with supp o2 as needed - cont with broad spectrum antibiotics for now - Check procal - Panculture, UCx, BCx, Urine Legionella, Strep - ID eval - Rate control, Cardizem PO - IV Diuresis, IV Lasix - resume Coumadin - Cardiology consult - ECHO - resume Low salt diet - FS control - GI ppx - DVT ppx
[2017-03-17] MEDS ORDERED: Potassium Chloride 20 mEq ER Tab PO ONE (11:03)
--- NOTE | 2017-03-17 11:29 | CP.PCM.PN ---
<KassyGuille - Last Filed: 03/17/17 11:26> Subjective - Date & Time of Evaluation Date of Evaluation: 03/17/17 Time of Evaluation: 11:26 - Subjective Subjective: Medicine Progress Note Pt seen and examined at bedside. No acute overnight events. Pt currently on dobutamine drip due to low DBP overnight. Off cardizem drip and started PO. Pt is AO x3 and able to speak in full sentences. Pt states that SOB is improved. Pt denies CP, nausea, vomiting, diarrhea, abdominal pain, fever, chills, FAUSTIN, and dizziness. Objective - Vital Signs/Intake and Output Vital Signs (last 24 hours): Temp Pulse Resp BP Pulse Ox 98.1 F 77 16 121/50 L 100 03/17/17 04:00 03/17/17 10:00 03/17/17 07:10 03/17/17 09:12 03/17/17 07:10 Intake and Output: 03/17/17 03/17/17 06:59 18:59 Output Total 350 Balance -350 - Medications Medications: Current Medications Albuterol/Ipratropium (Duoneb 3 Mg/0.5 Mg (3 Ml) Ud) 3 ml IH Q2H PRN PRN Reason: Shortness of Breath Albuterol/Ipratropium (Duoneb 3 Mg/0.5 Mg (3 Ml) Ud) 3 ml IH [id number] [facility] Last Admin: 03/17/17 07:14 Dose: 3 ml Digoxin (Lanoxin) 0.125 mg PO 1400 [facility] Furosemide (Lasix) 40 mg IVP Q12 [facility] Last Admin: 03/17/17 09:12 Dose: 40 mg Cefepime HCl (Maxipime 1gm) 1 gm in 100 mls @ 100 mls/hr IVPB DAILY [facility] PRN Reason: Protocol Last Admin: 03/17/17 09:08 Dose: 100 mls/hr Azithromycin (Zithromax 500mg In Ns) 500 mg in 250 mls @ 167 mls/hr IVPB DAILY [facility] PRN Reason: Protocol Last Admin: 03/17/17 09:13 Dose: 167 mls/hr Lisinopril (Zestril) 2.5 mg PO DAILY [facility] Pantoprazole Sodium (Protonix Inj) 40 mg IVP DAILY [facility] Last Admin: 03/17/17 09:12 Dose: 40 mg Spironolactone (Aldactone) 25 mg PO BID [facility] Verapamil HCl (Calan Tab) 40 mg PO Q8H [facility] Warfarin Sodium (Coumadin) 5 mg PO 1800 [facility] PRN Reason: Protocol - Labs Labs: 03/17/17 04:10 03/17/17 04:10 PT 32.5 SECONDS (9.4-12.5) H 03/17/17 04:10 INR 2.92 (0.93-1.08) H 03/17/17 04:10 APTT 33.3 Seconds (25.1-36.5) 03/16/17 11:14 - Constitutional Appears: No Acute Distress - Head Exam Head Exam: NORMAL INSPECTION - Eye Exam Eye Exam: Normal appearance - ENT Exam ENT Exam: Normal Exam - Neck Exam Neck Exam: Normal Inspection - Respiratory Exam Respiratory Exam: Rales (right lower lobe). absent: Accessory Muscle Use, Rhonchi, Wheezes, Respiratory Distress - Cardiovascular Exam Cardiovascular Exam: Irregular Rhythm, +S1, +S2. absent: Bradycardia, Tachycardia, Gallop, Rubs, Murmur - GI/Abdominal Exam GI & Abdominal Exam: Soft. absent: Distended, Guarding, Tenderness, Rebound - Extremities Exam Extremities Exam: Normal Inspection - Back Exam Back Exam: NORMAL INSPECTION - Neurological Exam Neurological Exam: Alert, Awake, Oriented x3 - Psychiatric Exam Psychiatric exam: Normal Affect, Normal Mood - Skin Skin Exam: Dry, Intact, Normal Color, Warm Assessment and Plan - Assessment and Plan (Free Text) Assessment: 87 yo F with PMH of CLL, A-fib, systolic CHF, and COPD presents with shortness of breath admitted for evaluation and treatment for hypercapnic respiratory failure 2/2 CHF exacerbation. Plan: 1. Hypercapnic respiratory failure 2/2 CHF exacerbation - ABG shows respiratory acidosis, f/u VBG shows improved pCO2 - CXR showed perihilar opacity bilaterally, suspicious for pulmonary edema Repeat CXR shows no active disease - Troponin borderline x3, BNP 4160 - Cultures negative after 24 hrs - Legionella, Flu negative - F/u strep pneumo antigen - Duoneb prn and jazmyne - Lasix 40 mg IVP q12h - Cont Cefepime and Azithromycin - Strict I's and O's - Daily weights - Palliative care consulted Pt requests DNR status Discussed DNI status, but uncertain at this time Pt states that her friend, Aurelia, is healthcare proxy 2. A-fib with RVR - Cardio consulted, f/u recs - EKG showed a-fib with RVR and old LBBB - Cardizem PO started - Coumadin restarted as INR is within therapeutic range 3. Leukocytosis - WBC improved today - Likely due to h/o CLL - Procal 1.23 - Cultures negative after 24 hrs - Legionella, Flu negative - IV abx - F/u strep pneumo antigen 4. Hypotension - Required Dobutamine overnight as DBP dropped to 30's - BP currently stable, dobutamine off 5. CASIE - Prerenal likely 2/2 to CHF exacerbation, hemodynamic changes - Cont to monitor 6. Lactic Acidosis, resolved - Anion gap closed GI/DVT ppx - Coumadin - Protonix Pt seen and discussed in detail with attending. Craig Elena, PGY1 <Brad Monk - Last Filed: 03/17/17 15:36> Objective - Vital Signs/Intake and Output Vital Signs (last 24 hours): Temp Pulse Resp BP Pulse Ox 98.1 F 84 16 121/86 100 03/17/17 04:00 03/17/17 11:45 03/17/17 07:10 03/17/17 11:45 03/17/17 07:10 Intake and Output: 03/17/17 03/17/17 06:59 18:59 Output Total 350 Balance -350 - Medications Medications: Current Medications Albuterol/Ipratropium (Duoneb 3 Mg/0.5 Mg (3 Ml) Ud) 3 ml IH Q2H PRN PRN Reason: Shortness of Breath Albuterol/Ipratropium (Duoneb 3 Mg/0.5 Mg (3 Ml) Ud) 3 ml IH [id number] [facility] Last Admin: 03/17/17 13:38 Dose: 3 ml Digoxin (Lanoxin) 0.125 mg PO 1400 [facility] Last Admin: 03/17/17 14:43 Dose: 0.125 mg Furosemide (Lasix) 40 mg IVP Q12 [facility] Last Admin: 03/17/17 09:12 Dose: 40 mg Cefepime HCl (Maxipime 1gm) 1 gm in 100 mls @ 100 mls/hr IVPB DAILY [facility] PRN Reason: Protocol Last Admin: 03/17/17 09:08 Dose: 100 mls/hr Azithromycin (Zithromax 500mg In Ns) 500 mg in 250 mls @ 167 mls/hr IVPB DAILY [facility] PRN Reason: Protocol Last Admin: 03/17/17 09:13 Dose: 167 mls/hr Lisinopril (Zestril) 2.5 mg PO DAILY [facility] Pantoprazole Sodium (Protonix Ec Tab) 40 mg PO ACB [facility] Spironolactone (Aldactone) 25 mg PO BID [facility]AZMY[facility] Verapamil HCl (Calan Tab) 40 mg PO Q8H [facility] Last Admin: 03/17/17 11:45 Dose: 40 mg Warfarin Sodium (Coumadin) 5 mg PO 1800 [facility] PRN Reason: Protocol - Labs Labs: 03/17/17 04:10 03/17/17 04:10 PT 32.5 SECONDS (9.4-12.5) H 03/17/17 04:10 INR 2.92 (0.93-1.08) H 03/17/17 04:10 APTT 33.3 Seconds (25.1-36.5) 03/16/17 11:14 Attending/Attestation - Attestation I have personally seen and examined this patient.: Yes I have fully participated in the care of the patient.: Yes I have reviewed all pertinent clinical information, including history, physical exam and plan: Yes Notes (Text): 03/17/17 15:16 attending note; Patient seen and examined with resident in ICU. Patient is alert, awake and oriented. Patient is a 87 year old female with past medical history of congestive heart failure with systolic dysfunction EF 30%, chronic atrial fibrillation on oral anticoagulation with Coumadin, chronic lymphocytic leukemia is admitted with hypercapnic Respiratory failure due to acute on chronic CHF exacerbation. currently improved respiratory status. Patient was on BiPAP at night. Currently on nasal cannula. Shortness of breath improved. Patient is also found to have WBC and elevated Lactic acid level concern for sepsis. Patient is afebrile and nontoxic. currently on cefepime and Zithromax. Elevated white count and lactic acid secondary to malignancy/chronic lymphocytic leukemia. WBC between 25-30 for the past few years as per her oncologist. Atrial fibrillation; currently rate controlled. Off Cardizem drip. Continue verapamil, digoxin, lisinopril and IV Lasix. Strict in and input and output. Daily weight requested. acute renal insufficiency; secondary to hemodynamic changes/IV Lasix. Monitor closely. Blood pressure is stable now. Patient is DNI DNR. Evaluation with palliative care nurse Liam barakat appreciated. upon discharge the patient will follow-up with PMD .
[2017-03-17] MEDS: Digoxin 125 mcg (0.125 mg) Tab PO SCH (14:43)
--- NOTE | 2017-03-17 15:18 | CP.PCM.CON ---
History of Present Illness - History of Present Illness History of Present Illness: Palliative consult requested by Dr Gisell Monk Reason: Advance care planning 87 year old female with history of CHF, Atrial fibrillation anticoagulation with Coumadin,CLL who presented with shortness of breath. EMT placed on BIPAP in field. Found to be in A Fib with RVR on arrival to ED. Cardizem drip. Labs, leukocytosis ,BUN 29,creat 1.3, Lactate 4.0 Procalcitonin 1.23. Chest x ray perihilar opacity bilaterally, likely pulmonary edema.She denies chest pain, nausea, vomiting ,diarrhea. PMHx: CHF, Atrial Fib on Coumadin, Echo on 03/05/17 severe septal hypokensis, moderate aortic regurgitation, severe pulmonary hypertension, LVF normal size EF 50%,CLL. Social History: Non smoker, no alcohol or drug use. Lives independently. Family History: Non contributory. Advance Care Planning: The patient has an Advanced Directive. A copy is on the chart. Aurelia Pittshomeroshashi is [facility] [phone]. Review of Systems: As per HPI, 12 point review is otherwise negative. Past Patient History - Infectious Disease Hx of Infectious Diseases: None - Past Social History Smoking Status: Never Smoked - CARDIAC Hx Cardiac Disorders: Yes Hx Cardia Arrhythmia: Yes (Afib) Hx Congestive Heart Failure: Yes Hx Hypercholesterolemia: Yes Hx Hypertension: Yes - PULMONARY Hx Respiratory Disorders: Yes Hx Bronchitis: Yes Hx Chronic Obstructive Pulmonary Disease (COPD): Yes Hx Pneumonia: Yes - NEUROLOGICAL Hx Neurological Disorder: No - HEENT Hx HEENT Problems: No - RENAL Hx Chronic Kidney Disease: No - ENDOCRINE/METABOLIC Hx Endocrine Disorders: No - HEMATOLOGICAL/ONCOLOGICAL Hx Blood Disorders: Yes (blood transfusion) Hx Cancer: Yes (cll dx 2 yrs ago) Hx Chemotherapy: No Other/Comment: pt goes for checkuip with dr kelley every 3 months - INTEGUMENTARY Hx Dermatological Problems: No - MUSCULOSKELETAL/RHEUMATOLOGICAL Hx Falls: Yes (past) - GASTROINTESTINAL Hx Gastrointestinal Disorders: Yes (gastritis) Other/Comment: egd/eus/ercp 03/04/17 ballon extraction of cbd stones, abnormal liver function tests - GENITOURINARY/GYNECOLOGICAL Hx Genitourinary Disorders: Yes Other/Comment: pyelonephritis - PSYCHIATRIC Hx Substance Use: No - SURGICAL HISTORY Hx Appendectomy: Yes Hx Cholecystectomy: Yes Other/Comment: tonsillectomy - ANESTHESIA Hx Anesthesia Reactions: No Meds Allergies/Adverse Reactions: Allergies Allergy/AdvReac Type Severity Reaction Status Date / Time No Known Allergies Allergy Verified 03/16/17 11:26 - Medications Medications: Current Medications Albuterol/Ipratropium (Duoneb 3 Mg/0.5 Mg (3 Ml) Ud) 3 ml IH Q2H PRN PRN Reason: Shortness of Breath Albuterol/Ipratropium (Duoneb 3 Mg/0.5 Mg (3 Ml) Ud) 3 ml IH [id number] [facility] Last Admin: 03/17/17 13:38 Dose: 3 ml Digoxin (Lanoxin) 0.125 mg PO 1400 [facility] Last Admin: 03/17/17 14:43 Dose: 0.125 mg Furosemide (Lasix) 40 mg IVP Q12 [facility] Last Admin: 03/17/17 09:12 Dose: 40 mg Cefepime HCl (Maxipime 1gm) 1 gm in 100 mls @ 100 mls/hr IVPB DAILY [facility] PRN Reason: Protocol Last Admin: 03/17/17 09:08 Dose: 100 mls/hr Azithromycin (Zithromax 500mg In Ns) 500 mg in 250 mls @ 167 mls/hr IVPB DAILY [facility] PRN Reason: Protocol Last Admin: 03/17/17 09:13 Dose: 167 mls/hr Lisinopril (Zestril) 2.5 mg PO DAILY [facility] Pantoprazole Sodium (Protonix Ec Tab) 40 mg PO ACB [facility] Spironolactone (Aldactone) 25 mg PO BID [facility] Verapamil HCl (Calan Tab) 40 mg PO Q8H [facility] Last Admin: 03/17/17 11:45 Dose: 40 mg Warfarin Sodium (Coumadin) 5 mg PO 1800 [facility] PRN Reason: Protocol Physical Exam - Constitutional Appears: No Acute Distress - Head Exam Head Exam: NORMAL INSPECTION - Eye Exam Eye Exam: Normal appearance, PERRL - ENT Exam ENT Exam: Mucous Membranes Moist, Normal Oropharynx - Neck Exam Neck exam: Positive for: Normal Inspection - Respiratory Exam Respiratory Exam: Decreased Breath Sounds, Rales, Rhonchi - Cardiovascular Exam Cardiovascular Exam: Irregular Rhythm, +S1, +S2 - GI/Abdominal Exam GI & Abdominal Exam: Normal Bowel Sounds, Soft - Extremities Exam Extremities exam: Positive for: normal capillary refill, normal inspection - Back Exam Back exam: NORMAL INSPECTION - Neurological Exam Neurological exam: Alert, Oriented x3 - Skin Skin Exam: Dry, Pallor - Additional Findings Additional findings: Palliative performance scale rating 50 % Results - Vital Signs Recent Vital Signs: Last Vital Signs Temp 98.1 F 03/17/17 04:00 Pulse 84 03/17/17 11:45 Resp 16 03/17/17 07:10 BP 121/86 03/17/17 11:45 Pulse Ox 100 03/17/17 07:10 - Labs Result Diagrams: 03/17/17 04:10 03/17/17 04:10 Labs: Laboratory Results - last 24 hr 03/16/17 03/16/17 03/16/17 14:50 15:10 15:10 WBC RBC Hgb Hct MCV MCH MCHC RDW Plt Count MPV PT INR Sodium Potassium Chloride Carbon Dioxide Anion Gap BUN Creatinine Est GFR ( Amer) Est GFR (Non-Af Amer) Random Glucose Hemoglobin A1c Calcium Phosphorus Magnesium Total Bilirubin AST ALT Alkaline Phosphatase Troponin I Total Protein Albumin Globulin Albumin/Globulin Ratio Triglycerides Cholesterol LDL Cholesterol Direct HDL Cholesterol Procalcitonin 1.23 H TSH 3rd Generation Urine Color Yellow Urine Appearance Clear Urine pH 6.0 Ur Specific [place] 1.010 Urine Protein Negative Urine Glucose (UA) Negative Urine Ketones Negative Urine Blood Negative Urine Nitrate Negative Urine Bilirubin Negative Urine Urobilinogen 0.2 Ur Leukocyte Esterase Negative Ur L.pneumophila Ag Negative 03/16/17 03/17/17 03/17/17 18:59 04:10 04:10 WBC 28.0 H* D RBC 3.92 Hgb 11.4 L D Hct 35.8 L MCV 91.3 D MCH 29.1 MCHC 31.8 RDW 14.8 H Plt Count 298 MPV 11.6 H PT 32.5 H INR 2.92 H Sodium Potassium Chloride Carbon Dioxide Anion Gap BUN Creatinine Est GFR ( Amer) Est GFR (Non-Af Amer) Random Glucose Hemoglobin A1c Calcium Phosphorus Magnesium Total Bilirubin AST ALT Alkaline Phosphatase Troponin I 0.08 D Total Protein Albumin Globulin Albumin/Globulin Ratio Triglycerides Cholesterol LDL Cholesterol Direct HDL Cholesterol Procalcitonin TSH 3rd Generation Urine Color Urine Appearance Urine pH Ur Specific [place] Urine Protein Urine Glucose (UA) Urine Ketones Urine Blood Urine Nitrate Urine Bilirubin Urine Urobilinogen Ur Leukocyte Esterase Ur L.pneumophila Ag 03/17/17 03/17/17 03/17/17 04:10 04:10 04:10 WBC RBC Hgb Hct MCV MCH MCHC RDW Plt Count MPV PT INR Sodium 140 Potassium 3.6 Chloride 106 Carbon Dioxide 25 Anion Gap 13 BUN 29 H Creatinine 1.3 H Est GFR ( Amer) 47 Est GFR (Non-Af Amer) 39 Random Glucose 174 H Hemoglobin A1c 5.4 Calcium 8.6 Phosphorus 4.6 H Magnesium 1.9 Total Bilirubin 0.9 AST 30 ALT 39 Alkaline Phosphatase 93 Troponin I 0.07 Total Protein 5.8 Albumin 3.3 Globulin 2.5 Albumin/Globulin Ratio 1.4 Triglycerides 90 Cholesterol 159 LDL Cholesterol Direct 96 HDL Cholesterol 48 Procalcitonin TSH 3rd Generation 0.53 Urine Color Urine Appearance Urine pH Ur Specific [place] Urine Protein Urine Glucose (UA) Urine Ketones Urine Blood Urine Nitrate Urine Bilirubin Urine Urobilinogen Ur Leukocyte Esterase Ur L.pneumophila Ag Assessment & Plan - Assessment and Plan (Free Text) Assessment: 87 year old female with history of atrial fibrillation, pulmonary hypertension, CHF who is admitted with hypercapnea, respiratory failure, CHF exacerbation, leukocytosis. The patient is alert and oriented. She states she is feeling weak but has less shortness of breath than yesterday. She denies pain, fever, nausea or vomiting. States she lives independently and is able to perform most ADL's. The patient and I discussed the terms of her Advance Directive.Patient states she is a DNR/ DNI. Clearly explains that she does not want any life prolonging measures if her situation worsens. Her friend, Aurelia Dalal is her POA and knows of her wishes. The patient offers no other concerns at this time. Psychosocial support given. Time spent in goals of care and advance care planning discussion, 20 minutes Plan: Advance care planning. Palliative support in establishing goals of care
--- NOTE | 2017-03-17 15:40 | PN ---
DATE: 03/17/2017 REASON FOR CONSULTATION AND FOLLOWUP: Acute pulmonary edema, congestive heart failure. SUBJECTIVE: The patient feels a lot better. No chest pain, no palpitations. OBJECTIVE: GENERAL: Not in apparent distress. Lying flat on the bed, on Dobutrex. VITAL SIGNS: Temperature afebrile, heart rate 84, and blood pressure 121/50. HEENT: PERRLA. Extraocular muscles intact. NECK: Supple. No carotid bruits or thyromegaly. CHEST: Clear to auscultation. HEART: S1 and S2 regular. ABDOMEN: Soft. EXTREMITIES: Clubbing and cyanosis negative. LABORATORY DATA: Blood workup as follows: WBC 28, hemoglobin 11.5, hematocrit 35.8, and platelet count 298. Chemistry shows sodium 140, potassium 3.6, chloride 106, carbon dioxide 25, anion gap of 13, BUN 29, and creatinine 1.3. Troponin 0.07. Creatinine clearance is 39 mL an hour. IMPRESSION: Acute pulmonary edema, atrial fibrillation new onset with rapid ventricular rate, cardiomyopathy, chronic lymphocytic leukemia, chronic obstructive pulmonary disease, cardiomyopathy with ejection fraction 35%, history of atrial fibrillation, chronic, on anticoagulation, admitted with severe shortness of breath, pulmonary edema, congestive heart failure secondary to cardiomyopathy, [id number] systolic dysfunction, mild to moderate aortic regurgitation, mild mitral regurgitation, pulmonary hypertension, right ventricular systolic pressure 55 mmHg. RECOMMENDATIONS: Continue diuretics, continue Dobutrex, continue anticoagulation, INR 2.92. History of CLL, chronic lymphocytic leukemia, leukocytosis secondary anemia and thrombocytopenia. Continue verapamil back. Started Cardizem by [employer]. We will put back on verapamil, discontinue Cardizem, continue gentle diuretics, continue Dobutrex. Rate is well controlled, possibly transfer to the floor. Continue broad-spectrum antibiotics to rule out underlying pneumonia. We will follow with you. Continue digoxin 0.125 mg daily. We will add 2.5 mg of lisinopril and will control verapamil for the heart rate and continue Coumadin, we will hold today, because INR is up. If INR 2.92, we will hold Coumadin today. We will restart when INR is below 2.5. Thank you Dr[address] Jaimes for providing us the opportunity in taking care of the patient, Mirian Amaral. Roselyn Nj MD
[2017-03-18 07:23] LABS: BASO # 0.02 K/mm3 (0.0-2.0); BASO % 0.1 % (0.0-3.0); EOS % 0.1 % (1.5-5.0); GRAN # 8.95 (1.4-6.5); GRAN % 34.5 % (50.0-68.0); HEMATOCRIT 34.3 % (36.0-48.0); LYMPH % 61.8 % (22.0-35.0); MEAN CELL VOLUME 92.5 fl (80.0-105.0); MEAN CORPUSCULAR HEMOGLOBIN 28.3 pg (25.0-35.0); MEAN CORPUSCULAR HGB CONC 30.6 g/dl (31.0-37.0); MEAN PLATELET VOLUME 11.5 fl (7.0-11.0); MONO # 0.9 (0.1-0.6); MONO % 3.5 % (1.0-6.0); RED CELL DISTRIBUTION WIDTH 15.3 % (11.5-14.5)
[2017-03-18 07:32] LABS: INR 3.44 (0.93-1.08)
[2017-03-18 07:46] LABS: ALB/GLOB RATIO 1.3 (1.1-1.8); BILIRUBIN,TOTAL 0.6 mg/dL (0.2-1.3); MAGNESIUM 2.1 mg/dL (1.7-2.2); PHOSPHOROUS 3.6 mg/dL (2.5-4.5); POTASSIUM 4.4 mmol/L (3.6-5.0); TOTAL PROTEIN 5.6 g/dL (5.8-8.3)
[2017-03-18 07:57] LABS: WHITE BLOOD COUNT 25.9 10^3/ul (4.5-11.0)
[2017-03-18] MEDS: Albuterol-Ipratrop 3 mg / 0.5 (3 ml) UD IH SCH ×4 (07:57→20:58)
--- NOTE | 2017-03-18 09:44 | IP.NPCORE ---
Heart Failure Core Measure - Heart Failure Ejection Fraction: Less Than 40 % Left Ventricular Function to be assessed after discharge: No ANTOLIN Inhibitor Prescribed: Yes Beta-Heraclio Prescribed: None Contraindication/Reason for not providing: COPD Angiotensin II Receptor Heraclio Prescribed: No Contraindication/Reason for not providing: on ANTOLIN AnticoagulationTherapy for Atrial Fibrillation/Atrialflutter: Yes Aldosterone Antagonist Prescribed: Yes Hydralazine Nitrate Prescribed: No Contraindication/Reason for not providing: ANTOLIN Implantable Cardioverter Defibrillator Therapy: No Contraindication/Reason for not providing: F/U outpatient Cardiac Resynchronization Therapy Prescribed: No Contraindication/Reason for not providing: N/A - Follow up Will be discharged to: Home Follow Up Date (must be within 7 days from discharge): 03/25/17 (recommended f/ u date with PMD/Cardiology ) Follow Up Time: 09:00
[2017-03-18] MEDS: Pantoprazole 40 mg EC Tab PO SCH (10:13)
[2017-03-18] MEDS: Cefepime 1gm in NS 100ml 1 GM/100 ML BAG IVPB SCH (10:14)
[2017-03-18] MEDS: Azithromycin 500MG/NS 250ml 500 MG/250 ML BAG IVPB SCH (10:14)
--- NOTE | 2017-03-18 10:39 | CP.PCM.PN ---
<Guille Elena - Last Filed: 03/18/17 16:29> Subjective - Date & Time of Evaluation Date of Evaluation: 03/18/17 Time of Evaluation: 10:36 - Subjective Subjective: Medicine Progress Note Pt seen and examined at bedside. No acute overnight events. Pt states that shortness of breath has improved. Pt denies CP, nausea, vomiting, diarrhea, abdominal pain, fever, chills, FAUSTIN, or dizziness. Objective - Vital Signs/Intake and Output Vital Signs (last 24 hours): Temp Pulse Resp BP Pulse Ox 97.9 F 95 H 20 120/73 98 03/18/17 05:29 03/18/17 10:13 03/18/17 05:29 03/18/17 10:13 03/18/17 05:29 Intake and Output: 03/18/17 03/18/17 06:59 18:59 Intake Total 980 Output Total 1200 Balance -220 - Medications Medications: Current Medications Albuterol/Ipratropium (Duoneb 3 Mg/0.5 Mg (3 Ml) Ud) 3 ml IH Q2H PRN PRN Reason: Shortness of Breath Albuterol/Ipratropium (Duoneb 3 Mg/0.5 Mg (3 Ml) Ud) 3 ml IH [id number] [facility] Last Admin: 03/18/17 07:57 Dose: 3 ml Digoxin (Lanoxin) 0.125 mg PO 1400 [facility] Last Admin: 03/17/17 14:43 Dose: 0.125 mg Furosemide (Lasix) 40 mg IVP Q12 [facility] Last Admin: 03/18/17 10:13 Dose: 40 mg Cefepime HCl (Maxipime 1gm) 1 gm in 100 mls @ 100 mls/hr IVPB DAILY [facility] PRN Reason: Protocol Last Admin: 03/18/17 10:14 Dose: 100 mls/hr Azithromycin (Zithromax 500mg In Ns) 500 mg in 250 mls @ 167 mls/hr IVPB DAILY [facility] PRN Reason: Protocol Last Admin: 03/18/17 10:14 Dose: 167 mls/hr Lisinopril (Zestril) 2.5 mg PO DAILY [facility] Last Admin: 03/18/17 10:13 Dose: 2.5 mg Pantoprazole Sodium (Protonix Ec Tab) 40 mg PO ACB [facility] Last Admin: 03/18/17 10:13 Dose: 40 mg Spironolactone (Aldactone) 25 mg PO BID [facility] Last Admin: 03/18/17 10:13 Dose: 25 mg Verapamil HCl (Calan Tab) 40 mg PO Q8H [facility] Last Admin: 03/18/17 10:11 Dose: 40 mg Warfarin Sodium (Coumadin) 5 mg PO 1800 [facility] PRN Reason: Protocol Last Admin: 03/17/17 17:47 Dose: 5 mg - Labs Labs: 03/18/17 06:30 03/18/17 06:30 PT 38.8 SECONDS (9.4-12.5) H 03/18/17 06:30 INR 3.44 (0.93-1.08) H 03/18/17 06:30 APTT 33.3 Seconds (25.1-36.5) 03/16/17 11:14 - Constitutional Appears: No Acute Distress - Head Exam Head Exam: NORMAL INSPECTION - Eye Exam Eye Exam: Normal appearance - Respiratory Exam Respiratory Exam: Rales (b/l bases, improved). absent: Accessory Muscle Use, Rhonchi, Wheezes, Respiratory Distress - Cardiovascular Exam Cardiovascular Exam: Irregular Rhythm, +S1, +S2. absent: Gallop, Rubs, Murmur - GI/Abdominal Exam GI & Abdominal Exam: Soft. absent: Distended, Guarding, Tenderness, Rebound - Back Exam Back Exam: NORMAL INSPECTION - Neurological Exam Neurological Exam: Alert, Awake, Oriented x3 - Psychiatric Exam Psychiatric exam: Normal Affect, Normal Mood - Skin Skin Exam: Dry, Intact, Normal Color, Warm Assessment and Plan - Assessment and Plan (Free Text) Assessment: 87 yo F with PMH of CLL, A-fib, systolic CHF, and COPD presents with shortness of breath admitted for evaluation and treatment for hypercapnic respiratory failure 2/2 CHF exacerbation. Plan: 1. Hypercapnic respiratory failure 2/2 CHF exacerbation, improved - Cardio consulted - CXR showed perihilar opacity bilaterally, suspicious for pulmonary edema Repeat CXR shows no active disease - Chest CT showed right lower lobe inflammation that may be related to bronchiectasis, bilateral pleural effusions No signs of consolidation, will d/c abx - Troponin borderline x3, BNP 4160 - Cultures, Legionella, Flu negative - F/u strep pneumo antigen - Cont Lasix, Lisinopril, Aldactone, Duoneb - Strict I's and O's - Daily weights - Palliative care consulted Pt is DNR/DNI - PT eval and treat, OOB with assistance as tolerated - TCU evaluation 2. A-fib with RVR - Cardio consulted - EKG showed a-fib with RVR and old LBBB - Cont Digoxin and Verapamil - Coumadin held as INR is supratherapeutic - Recheck INR in AM 3. Leukocytosis - WBC improved today - Likely due to h/o CLL - Procal 1.23 - Cultures negative after 24 hrs - Legionella, Flu negative - IV abx - F/u strep pneumo antigen 4. CASIE - Prerenal likely 2/2 to CHF exacerbation, hemodynamic changes - Creatinine stable today - Cont to monitor 5. Hypotension, resolved - BP currently stable, dobutamine off 6. Lactic Acidosis, resolved - Anion gap closed GI/DVT ppx - Coumadin (currently held) - Protonix Pt seen and discussed in detail with attending. Craig Elena, PGY1 <Dae Paulino - Last Filed: 03/18/17 16:49> Objective - Vital Signs/Intake and Output Vital Signs (last 24 hours): Temp Pulse Resp BP Pulse Ox 97.5 F L 103 H 20 98/54 L 98 03/18/17 12:00 03/18/17 12:00 03/18/17 12:00 03/18/17 12:00 03/18/17 05:29 Intake and Output: 03/18/17 03/18/17 06:59 18:59 Intake Total 980 Output Total 1200 Balance -220 - Medications Medications: Current Medications Albuterol/Ipratropium (Duoneb 3 Mg/0.5 Mg (3 Ml) Ud) 3 ml IH Q2H PRN PRN Reason: Shortness of Breath Albuterol/Ipratropium (Duoneb 3 Mg/0.5 Mg (3 Ml) Ud) 3 ml IH [id number] [facility] Last Admin: 03/18/17 14:32 Dose: 3 ml Digoxin (Lanoxin) 0.125 mg PO 1400 [facility] Last Admin: 03/17/17 14:43 Dose: 0.125 mg Furosemide (Lasix) 40 mg PO DAILY [facility] Lisinopril (Zestril) 2.5 mg PO DAILY [facility] Last Admin: 03/18/17 10:13 Dose: 2.5 mg Pantoprazole Sodium (Protonix Ec Tab) 40 mg PO ACB [facility] Last Admin: 03/18/17 10:13 Dose: 40 mg Spironolactone (Aldactone) 25 mg PO BID [facility] Last Admin: 03/18/17 10:13 Dose: 25 mg Verapamil HCl (Calan Tab) 40 mg PO Q8H [facility] Last Admin: 03/18/17 10:11 Dose: 40 mg Warfarin Sodium (Coumadin) 5 mg PO 1800 [facility] PRN Reason: Protocol Last Admin: 03/17/17 17:47 Dose: 5 mg - Labs Labs: 03/18/17 06:30 03/18/17 06:30 PT 38.8 SECONDS (9.4-12.5) H 03/18/17 06:30 INR 3.44 (0.93-1.08) H 03/18/17 06:30 APTT 33.3 Seconds (25.1-36.5) 03/16/17 11:14 Attending/Attestation - Attestation I have personally seen and examined this patient.: Yes I have fully participated in the care of the patient.: Yes I have reviewed all pertinent clinical information, including history, physical exam and plan: Yes Notes (Text): 87 yo F with PMH of CLL, A-fib, systolic CHF, and COPD presents with shortness of breath admitted for evaluation and treatment for hypercapnic respiratory failure 2/2 CHF exacerbation. Plan: 1. Hypercapnic respiratory failure 2/2 CHF exacerbation, improved 2. A-fib with RVR 3. Leukocytosis due to CLL 4. CASIE 5. Hypotension, resolved 6. Lactic Acidosis, resolved
--- NOTE | 2017-03-18 15:31 | CT ---
PROCEDURE: CT Chest without contrast HISTORY: r/o pneumonia COMPARISON: None TECHNIQUE: Contiguous axial images were obtained through the chest without intravenous contrast enhancement. Sagittal and coronal reconstructions were performed. Radiation dose (DLP): 185 mGy-cm. This CT exam was performed using one or more of the following dose reduction techniques: Automated exposure control, adjustment of the mA and/or kV according to patient size, and/or use of iterative reconstruction technique. FINDINGS: LUNGS: Bilateral hyperaeration background COPD inferred. Strandy coalescing right infrahilar peribronchial thickening -possibly relating to a peribronchial infiltrate right lung base noted. Minimal compressive atelectatic changes right lung base subjacent to right sided pleural effusion noted Left pleural effusion also present Scattered minimal mosaic lung attenuation uneven ventilation profusion and/or areas of air trapping compatible with this. Minimal lingular left pleural thickening bordering strandy inflammatory change. MEDIASTINUM: Unremarkable thoracic aorta. No aneurysm. Cardiomegaly coronary artery calcifications Main pulmonary artery unremarkable. No vascular congestion. Shotty mediastinal nodes PLEURA: Bilateral posterior inferior pleural effusions. Minimal passive compressive atelectatic changes right lung base and associated No pneumothorax. BONES: No fracture. No destructive lesion. Thoracic spondylosis UPPER ABDOMEN: Grossly unremarkable. OTHER FINDINGS: None. IMPRESSION: Bilateral hyperaeration- background COPD. Very few septal lines at both lung bases. Some of the inflammatory changes in the right lower lobe posteromedially may relate to inflammatory mild bronchiectasis. Bilateral pleural effusions with minimal passive compressive atelectatic changes right posterior lung base. Minimal concomitant strandy infiltrate here/blending inflammatory bronchiectasis also compatible with this.
[2017-03-18] MEDS: Digoxin 125 mcg (0.125 mg) Tab PO SCH (16:52)
--- NOTE | 2017-03-18 21:06 | PN ---
DATE: 03/18/2017 REASON FOR CONSULTATION AND FOLLOWUP: Acute pulmonary edema and congestive heart failure. SUBJECTIVE: The patient feels a lot better. No chest pain. No shortness of breath. No palpitations. OBJECTIVE: GENERAL: Lying flat in the bed, not in apparent distress. VITAL SIGNS: As follows; temperature afebrile, heart rate 103, and blood pressure 98/54. HEENT: PERRLA. Extraocular muscles intact. NECK: Supple. No carotid bruits or thyromegaly. CHEST: Clear to auscultation. HEART: S1 and S2 regular. ABDOMEN: Soft. EXTREMITIES: Clubbing and cyanosis negative. LABORATORY DATA: Blood workup as follows: WBC 25.9, hemoglobin , hematocrit 34.3, and platelet count 270. Chemistry shows sodium 140, potassium 4.4, chloride 106, carbon dioxide 28, anion gap of 11, BUN 35, and creatinine 1.3. Total protein 5.6, albumin 3.2, and albumin-globulin ratio 1.3. IMPRESSION AND PLAN: Acute pulmonary edema, atrial fibrillation chronic with rapid rate, sepsis, pneumonia, possible cardiomyopathy, chronic lymphocytic leukemia, chronic obstructive pulmonary disease, ejection fraction 35%, congestive heart failure, cardiomyopathy, acute on chronic secondary to systolic dysfunction, [id number] aortic regurgitation, mild mitral regurgitation, pulmonary hypertension, and right ventricular systolic pressure of 55. Today's INR is 3.44. Coumadin is on hold because of elevated PT/INR. We will check INR tomorrow. If it goes below to 2.5, then we will restart. Continue lisinopril. Continue digoxin 0.125 mg daily. Continue verapamil 40 mg daily. Continue Lasix and digoxin. We will change the spironolactone to once a day to prevent hyperkalemia and medical treatment at this point. No invasive cardiac workup is planned. We will repeat the blood workup and PT/INR tomorrow. We will do CBC, SMA-7, and calcium, magnesium, and phosphorus tomorrow. Thank you for providing us the opportunity in taking care of Mirian Amaral. Roselyn Nj MD
[2017-03-19 07:26] LABS: BASO # 0.04 K/mm3 (0.0-2.0); BASO % 0.2 % (0.0-3.0); EOS # 0.2 (0.0-0.7); EOS % 0.7 % (1.5-5.0); GRAN # 4.86 (1.4-6.5); GRAN % 21.7 % (50.0-68.0); HEMATOCRIT 36.2 % (36.0-48.0); LYMPH # 16.7 (1.2-3.4); LYMPH % 74.1 % (22.0-35.0); MEAN CELL VOLUME 92.3 fl (80.0-105.0); MEAN CORPUSCULAR HEMOGLOBIN 28.1 pg (25.0-35.0); MEAN CORPUSCULAR HGB CONC 30.4 g/dl (31.0-37.0); MEAN PLATELET VOLUME 11.4 fl (7.0-11.0); MONO # 0.8 (0.1-0.6); MONO % 3.3 % (1.0-6.0); RED CELL DISTRIBUTION WIDTH 15.1 % (11.5-14.5); WHITE BLOOD COUNT 22.5 10^3/ul (4.5-11.0)
[2017-03-19 07:38] LABS: INR 3.25 (0.93-1.08)
[2017-03-19 07:49] LABS: BLOOD UREA NITROGEN 31 mg/dL (7-21); CALCIUM 8.9 mg/dL (8.4-10.5); CARBON DIOXIDE 31 mmol/L (21-33); CHLORIDE 103 mmol/L (98-107); GFR AFRICAN-AMERICAN > 60; GLUCOSE,RANDOM 87 mg/dL (70-110); PHOSPHOROUS 3.1 mg/dL (2.5-4.5); POTASSIUM 4.3 mmol/L (3.6-5.0); SODIUM 138 mmol/L (132-148)
[2017-03-19] MEDS: Albuterol-Ipratrop 3 mg / 0.5 (3 ml) UD IH SCH ×2 (07:50→14:12)
[2017-03-19] MEDS: Pantoprazole 40 mg EC Tab PO SCH (08:50)
--- NOTE | 2017-03-19 09:48 | CARD ---
APPROVED REPORT EKG Measurement Heart [id number] <Conclusion> Atrial fibrillation with rapid ventricular response Left bundle branch block The rate is slower c/w ECG 03/16/17
--- NOTE | 2017-03-19 12:36 | CP.PCM.PN ---
Subjective - Date & Time of Evaluation Date of Evaluation: 03/19/17 Time of Evaluation: 12:33 - Subjective Subjective: Medicine Progress Note Pt seen and examined at bedside. No acute overnight events. Pt states that fatigue is improved after decrease Lasix frequency. Pt denied CP, SOB, nausea, vomiting, diarrhea, abdominal pain, fever, chills, FAUSTIN, or dizziness. Objective - Vital Signs/Intake and Output Vital Signs (last 24 hours): Temp Pulse Resp BP Pulse Ox 97.9 F 128 H 20 100/67 97 03/19/17 06:00 03/19/17 09:55 03/19/17 06:00 03/19/17 09:55 03/19/17 06:00 Intake and Output: 03/19/17 03/19/17 06:59 18:59 Intake Total 720 360 Output Total 600 Balance 120 360 - Medications Medications: Current Medications Albuterol/Ipratropium (Duoneb 3 Mg/0.5 Mg (3 Ml) Ud) 3 ml IH Q2H PRN PRN Reason: Shortness of Breath Albuterol/Ipratropium (Duoneb 3 Mg/0.5 Mg (3 Ml) Ud) 3 ml IH [id number] [facility] Last Admin: 03/19/17 07:50 Dose: 3 ml Digoxin (Lanoxin) 0.125 mg PO 1400 [facility] Last Admin: 03/18/17 16:52 Dose: 0.125 mg Furosemide (Lasix) 40 mg PO DAILY [facility] Last Admin: 03/19/17 09:55 Dose: 40 mg Lisinopril (Zestril) 2.5 mg PO DAILY [facility] Last Admin: 03/19/17 09:55 Dose: 2.5 mg Pantoprazole Sodium (Protonix Ec Tab) 40 mg PO ACB [facility] Last Admin: 03/19/17 08:50 Dose: 40 mg Spironolactone (Aldactone) 25 mg PO DAILY [facility] Last Admin: 03/19/17 09:55 Dose: 25 mg Verapamil HCl (Calan Tab) 40 mg PO Q8H [facility] Warfarin Sodium (Coumadin) 5 mg PO 1800 [facility] PRN Reason: Protocol Last Admin: 03/17/17 17:47 Dose: 5 mg - Labs Labs: 03/19/17 06:30 03/19/17 06:30 PT 36.6 SECONDS (9.4-12.5) H 03/19/17 06:30 INR 3.25 (0.93-1.08) H 03/19/17 06:30 APTT 33.3 Seconds (25.1-36.5) 03/16/17 11:14 - Constitutional Appears: No Acute Distress - Head Exam Head Exam: NORMAL INSPECTION - Eye Exam Eye Exam: Normal appearance - ENT Exam ENT Exam: Normal Exam - Neck Exam Neck Exam: Normal Inspection - Respiratory Exam Respiratory Exam: Clear to Ausculation Bilateral. absent: Accessory Muscle Use , Rales, Rhonchi, Wheezes, Respiratory Distress - Cardiovascular Exam Cardiovascular Exam: RRR, +S1, +S2. absent: Gallop, Rubs, Murmur - GI/Abdominal Exam GI & Abdominal Exam: Soft. absent: Distended, Guarding, Tenderness, Rebound - Extremities Exam Extremities Exam: Normal Inspection - Back Exam Back Exam: NORMAL INSPECTION - Neurological Exam Neurological Exam: Alert, Awake, Oriented x3 - Psychiatric Exam Psychiatric exam: Normal Affect, Normal Mood - Skin Skin Exam: Dry, Intact, Normal Color, Warm Assessment and Plan - Assessment and Plan (Free Text) Assessment: 87 yo F with PMH of CLL, A-fib, systolic CHF, and COPD presents with shortness of breath admitted for evaluation and treatment for hypercapnic respiratory failure 2/2 CHF exacerbation. Plan: 1. Hypercapnic respiratory failure 2/2 systolic CHF exacerbation, improved - Cardio consulted - CXR showed perihilar opacity bilaterally, suspicious for pulmonary edema Repeat CXR shows no active disease - Chest CT showed right lower lobe inflammation that may be related to bronchiectasis, bilateral pleural effusions No signs of consolidation, abx off - Troponin borderline x3, BNP 4160 on admission - Cultures, Legionella, Flu negative - F/u strep pneumo antigen - Cont Lasix, Lisinopril, Aldactone - PT eval and treat, OOB with assistance as tolerated - Awaiting TCU bed - Started Iprotropium neb, D/C duoneb as it could cause tachycardia 2. A-fib with RVR - Cardio consulted - EKG showed a-fib with RVR and old LBBB - Cont Digoxin and Verapamil - Cont to hold Coumadin as INR is supratherapeutic - Recheck INR in AM 3. Leukocytosis - WBC downtrending - Likely due to h/o CLL - Procal 1.23 - Cultures negative after 24 hrs - Legionella, Flu negative - IV abx - F/u strep pneumo antigen 4. CASIE, resolved - Prerenal likely 2/2 to CHF exacerbation, hemodynamic changes - Creatinine WNL today - Cont to monitor 5. Hypotension, resolved - BP currently stable, dobutamine off 6. Lactic Acidosis, resolved - Anion gap closed GI/DVT ppx - Coumadin (currently held) - Protonix Pt seen and discussed in detail with attending. Craig Elena, PGY1
[2017-03-19] MEDS: Digoxin 125 mcg (0.125 mg) Tab PO SCH (14:13)
--- NOTE | 2017-03-19 19:53 | CON ---
DATE: 03/16/2017 CONSULT SERVICE: Cardiology. REASON FOR CONSULTATION AND FOLLOWUP: Respiratory distress, CHF, atrial fibrillation, and CLL. BRIEF CLINICAL HISTORY: This is an 87-year-old female with past medical history significant for chronic lymphocytic leukemia, history of chronic atrial fibrillation, congestive heart failure, cardiomyopathy with ejection fraction of 30%, came in with respiratory distress, placed on BiPAP, IV Lasix and Solu-Medrol was given. Now, the patient is moved to ICU, improved, still on BiPAP, not intubated, and found to be in AFib with rapid ventricular rate. IV Cardizem was given and drip started. The patient is on BiPAP, follow simple command, and awake and alert. Recently admitted with pyelonephritis and discharged home on anticoagulation and verapamil. History of recent pyelonephritis on admission, last time with AFib chronic, history of cardiomyopathy, and ejection fraction 27%. PAST MEDICAL HISTORY: Significant for CLL; CHF; cardiomyopathy; and chronic atrial fibrillation, on anticoagulation and verapamil. SOCIAL HISTORY: Active smoker. No history of alcohol abuse. Most recent cardiac workup as follows: The patient had an echocardiography done, which showed an ejection fraction of 27%, [id number] aortic regurgitation, moderate mitral regurgitation, severe pulmonary hypertension, and RV systolic pressure 66. REVIEW OF SYSTEMS: As per HPI. CURRENT MEDICATIONS: Before coming to the hospital, the patient was taking Coumadin 5 mg, verapamil 180 mg, MiraLax, lisinopril, Lasix, cyanocobalamin, cholecalciferol, and albuterol. ALLERGIES: NO KNOWN DRUG ALLERGIES. PHYSICAL EXAMINATION: VITAL SIGNS: Temperature afebrile, heart rate 113, and blood pressure 93/53. HEENT: PERRLA intact. NECK: Supple. No carotid bruit or thyromegaly. CHEST: Clear to auscultation. HEART: S1 and S2 regular. ABDOMEN: Soft. EXTREMITIES: Clubbing and cyanosis negative. LABORATORY DATA: Blood workup as follows: WBC 65.9, hemoglobin 14.9, hematocrit 47.9, and platelet count 441. Chemistry shows sodium of 140, potassium 4.0, chloride 106, carbon dioxide 25, anion gap 9, BUN 20, and creatinine 1.1. Troponin is 0.03 negative. BNP was not done. Total protein and albumin 4.5. EKG, AFib with rapid ventricular rate at a rate of 157. Chest x-ray consistent with pulmonary edema, cannot rule out underlying atypical pneumonia. ASSESSMENT: Acute pulmonary edema, cardiomyopathy, chronic lymphocytic leukemia, rule out early pneumonia, history of pyelonephritis, hypertension, respiratory insufficiency distress, moderate tricuspid regurgitation, pulmonary hypertension, and right ventricular systolic pressure of 66 mmHg. RECOMMENDATIONS: Continue diuretics, rate control with verapamil and warfarin started. IV Cardizem started. Once the rate improved, we will change to p.o. Continue Lasix. The patient's INR is 1.83. We will give one dose of Lovenox until the INR get 2 and we will resume back Coumadin. We will follow with you. Thank you Dr. Monk for providing the opportunity in taking care of Mirian Alvarezrheaeber. Roselyn Nj MD
[2017-03-19] MEDS: Ipratropium 0.02% Inhal Soln (0.5 mg/2.5 ml) UD IH SCH (20:12)
--- NOTE | 2017-03-19 21:11 | PN ---
DATE: 03/19/2017 LOCATION: The patient in room 372, bed 2. REASON FOR FOLLOWUP AND CONSULTATION: Acute pulmonary edema, congestive heart failure. SUBJECTIVE: The patient denies any chest pain. Her breathing is better. Denies any palpitation. The patient is sitting comfortably in chair. PHYSICAL EXAMINATION: VITAL SIGNS: Blood pressure 119/89; respirations 18; pulse, at times the patient's heart rate go to 110 to 120; temperature 98.2. HEENT: Head is normocephalic. Eyes: Pupils normal, conjunctivae normal. Nose and throat normal. NECK: JVP low. Carotids equal. THORAX: AP diameter normal. LUNGS: No significant rales. CARDIOVASCULAR: S1 and S2. ABDOMEN: Soft. No tenderness. No organomegaly. Bowel sounds normal. EXTREMITIES: No clubbing, no cyanosis. LABORATORY DATA: WBC 22.5, hemoglobin 11.0, hematocrit 36.2, platelet 260. Sodium 138, potassium 4.3, BUN 31, creatinine 0.9, calcium 8.9, phosphorus 3.1, magnesium 2.0, BUN 31, creatinine 0.9. DIAGNOSES: Acute pulmonary edema; atrial fibrillation, chronic with rapid rate; sepsis; pneumonia; possible cardiomyopathy; chronic lymphocytic leukemia; chronic obstructive pulmonary disease; ejection fraction 35%; pulmonary edema on the basis of acute on chronic left ventricular systolic dysfunction; [id number] aortic regurgitation; mild mitral regurgitation; pulmonary hypertension; right ventricular systolic pressure 55 mmHg. PLAN: Today's prothrombin time 36.6, INR 3.25, so INR is still elevated. Warfarin is still on hold because of elevated PT/INR. The patient's heart rate is a little elevated. We will give atenolol 12.5 mg half tablet of 25 mg p.o. now and daily, to monitor the heart rate. The patient in the meantime on spironolactone 25 daily, verapamil 40 mg p.o. q. 8 hours, digoxin 0.125 daily, furosemide 40 p.o. daily, lisinopril 2.5 mg p.o. daily. We will follow prothrombin time in the morning. Roselyn Garvey MD [facility] # [id number]
[2017-03-20] MEDS: Ipratropium 0.02% Inhal Soln (0.5 mg/2.5 ml) UD IH SCH ×4 (01:35→20:06)
[2017-03-20 06:57] LABS: INR 1.95 (0.93-1.08)
[2017-03-20 07:16] LABS: HEMATOCRIT 37.7 % (36.0-48.0); MEAN CORPUSCULAR HEMOGLOBIN 27.8 pg (25.0-35.0); MEAN CORPUSCULAR HGB CONC 30.2 g/dl (31.0-37.0); MEAN PLATELET VOLUME 11.7 fl (7.0-11.0); RED CELL DISTRIBUTION WIDTH 14.6 % (11.5-14.5)
[2017-03-20 07:44] LABS: ALB/GLOB RATIO 1.3 (1.1-1.8); ALKALINE PHOSPHATASE 84 U/L (38-126); ALT/SGPT 56 U/L (7-56); AST/SGOT 36 U/L (14-36); BILIRUBIN,TOTAL 0.6 mg/dL (0.2-1.3); BLOOD UREA NITROGEN 30 mg/dL (7-21); CALCIUM 9.1 mg/dL (8.4-10.5); CARBON DIOXIDE 29 mmol/L (21-33); CHLORIDE 101 mmol/L (98-107); GFR AFRICAN-AMERICAN > 60; GLUCOSE,RANDOM 88 mg/dL (70-110); POTASSIUM 4.3 mmol/L (3.6-5.0); SODIUM 138 mmol/L (132-148); TOTAL PROTEIN 5.9 g/dL (5.8-8.3)
[2017-03-20 08:00] LABS: WHITE BLOOD COUNT 26.5 10^3/ul (4.5-11.0)
[2017-03-20] MEDS: Pantoprazole 40 mg EC Tab PO SCH (08:24)
[2017-03-20] MEDS ORDERED: Enoxaparin 60 mg Syringe SC STA (08:58)
[2017-03-20 11:55] VITALS: RESP 18
--- NOTE | 2017-03-20 14:07 | CP.PCM.DIS ---
Provider - Provider Date of Admission: 03/16/17 11:59 Attending physician: Seth Jaimes MD Primary care physician: Jac Clements MD Consults: Cardio: Clem Palliative: [place] Time Spent in preparation of Discharge (in minutes): 45 Hospital Course - Lab Results Lab Results: Micro Results 03/16/17 15:00 Nose MRSA Culture (Admit) - Final MRSA NOT DETECTED 03/16/17 15:10 Urine Urine Culture - Final No Growth (<1,000 CFU/ML) Most Recent Lab Values WBC 26.5 10^3/ul (4.5-11.0) H* 03/20/17 06:20 RBC 4.10 10^6/uL (3.5-6.1) 03/20/17 06:20 Hgb 11.4 g/dL (12.0-16.0) L 03/20/17 06:20 Hct 37.7 % (36.0-48.0) 03/20/17 06:20 MCV 92.0 fl (80.0-105.0) 03/20/17 06:20 MCH 27.8 pg (25.0-35.0) 03/20/17 06:20 MCHC 30.2 g/dl (31.0-37.0) L 03/20/17 06:20 RDW 14.6 % (11.5-14.5) H 03/20/17 06:20 Plt Count 306 10^3/uL (120.0-450.0) 03/20/17 06:20 MPV 11.7 fl (7.0-11.0) H 03/20/17 06:20 Gran % 21.7 % (50.0-68.0) L 03/19/17 06:30 Lymph % (Auto) 74.1 % (22.0-35.0) H 03/19/17 06:30 [place] % (Auto) 3.3 % (1.0-6.0) 03/19/17 06:30 Eos % (Auto) 0.7 % (1.5-5.0) L 03/19/17 06:30 Baso % (Auto) 0.2 % (0.0-3.0) 03/19/17 06:30 Gran # 4.86 (1.4-6.5) 03/19/17 06:30 Lymph # 16.7 (1.2-3.4) H 03/19/17 06:30 [place] # 0.8 (0.1-0.6) H 03/19/17 06:30 Eos # 0.2 (0.0-0.7) 03/19/17 06:30 Baso # 0.04 K/mm3 (0.0-2.0) 03/19/17 06:30 Neutrophils % (Manual) 15 % (50.0-70.0) L 03/16/17 11:14 Lymphocytes % (Manual) 81 % (22.0-35.0) H 03/16/17 11:14 Monocytes % (Manual) 3 % (1.0-6.0) 03/16/17 11:14 Eosinophils % (Manual) 1 % (0.0-3.0) 03/16/17 11:14 Platelet Evaluation High (NORMAL) 03/16/17 11:14 Anisocytosis (manual) 1+ 03/16/17 11:14 PT 21.8 SECONDS (9.4-12.5) H 03/20/17 06:20 INR 1.95 (0.93-1.08) H 03/20/17 06:20 APTT 33.3 Seconds (25.1-36.5) 03/16/17 11:14 pCO2 51 mm/Hg (35-45) H 03/16/17 11:25 pO2 50 mm/Hg (30-55) 03/16/17 14:50 HCO3 19.9 mmol/L (21-28) L 03/16/17 11:25 ABG pH 7.20 (7.35-7.45) L 03/16/17 11:25 ABG Total CO2 21.5 mmol.L (22-28) L 03/16/17 11:25 ABG O2 Saturation 100.5 % (95-98) H 03/16/17 11:25 ABG O2 Content 17.6 ML/dl (15-23) 03/16/17 11:25 ABG Base Excess -8.2 mmol/L (-2.0-3.0) L 03/16/17 11:25 ABG Hemoglobin 12.2 g/dL (11.7-17.4) 03/16/17 11:25 ABG Carboxyhemoglobin 2.3 % (0.5-1.5) H 03/16/17 11:25 POC ABG HHb (Measured) -0.5 % (0-5) L 03/16/17 11:25 ABG Methemoglobin 0.7 % (0.0-3.0) 03/16/17 11:25 ABG O2 Capacity 17.5 mL/dl (16-24) 03/16/17 11:25 VBG pH 7.32 (7.32-7.43) 03/16/17 14:50 VBG pCO2 46.0 (40-60) 03/16/17 14:50 VBG HCO3 23.7 mmol/l (21-28) 03/16/17 14:50 VBG Total CO2 25.1 mmol.L (22-28) 03/16/17 14:50 VBG O2 Sat (Calc) 87.0 % (40-65) H 03/16/17 14:50 VBG Base Excess -2.6 mmol/L (0.0-2.0) L 03/16/17 14:50 VBG Potassium 3.2 mmol/L (3.6-5.2) L 03/16/17 14:50 Hgb O2 Saturation 97.6 % (95.0-98.0) 03/16/17 11:25 Sodium 140.0 mmol/L (132-148) 03/16/17 14:50 Chloride 103.0 mmol/L (98-107) 03/16/17 14:50 Glucose 236 mg/dl (65-105) H 03/16/17 14:50 Lactate 3.0 mmol/L (0.7-2.1) H 03/16/17 14:50 FiO2 21.0 % 03/16/17 14:50 Sodium 138 mmol/L (132-148) 03/20/17 06:20 Potassium 4.3 mmol/L (3.6-5.0) 03/20/17 06:20 Chloride 101 mmol/L (98-107) 03/20/17 06:20 Carbon Dioxide 29 mmol/L (21-33) 03/20/17 06:20 Anion Gap 12 (10-20) 03/20/17 06:20 BUN 30 mg/dL (7-21) H 03/20/17 06:20 Creatinine 1.0 mg/dl (0.7-1.2) 03/20/17 06:20 Est GFR ( Amer) > 60 03/20/17 06:20 Est GFR (Non-Af Amer) 52 03/20/17 06:20 Random Glucose 88 mg/dL (70-110) 03/20/17 06:20 Hemoglobin A1c 5.4 % (4.2-6.5) 03/17/17 04:10 Calcium 9.1 mg/dL (8.4-10.5) 03/20/17 06:20 Phosphorus 3.1 mg/dL (2.5-4.5) 03/19/17 06:30 Magnesium 2.0 mg/dL (1.7-2.2) 03/19/17 06:30 Total Bilirubin 0.6 mg/dL (0.2-1.3) 03/20/17 06:20 AST 36 U/L (14-36) D 03/20/17 06:20 ALT 56 U/L (7-56) 03/20/17 06:20 Alkaline Phosphatase 84 U/L (38-126) 03/20/17 06:20 Lactate Dehydrogenase 769 U/L (333-699) H 03/16/17 11:14 Total Creatine Kinase 63 U/L (35-230) 03/16/17 11:14 Troponin I 0.07 ng/mL 03/17/17 04:10 NT-Pro-B Natriuret Pep 4160 pg/mL (0-450) H 03/16/17 11:14 Total Protein 5.9 g/dL (5.8-8.3) 03/20/17 06:20 Albumin 3.3 g/dL (3.0-4.8) 03/20/17 06:20 Globulin 2.5 gm/dL 03/20/17 06:20 Albumin/Globulin Ratio 1.3 (1.1-1.8) 03/20/17 06:20 Triglycerides 90 mg/dL (35-160) 03/17/17 04:10 Cholesterol 159 mg/dL (130-200) 03/17/17 04:10 LDL Cholesterol Direct 96 mg/dL (0-129) 03/17/17 04:10 HDL Cholesterol 48 mg/dL (29-60) 03/17/17 04:10 Procalcitonin 1.23 NG/ML (0.19-0.49) H 03/16/17 14:50 TSH 3rd Generation 0.53 mIU/mL (0.46-4.68) 03/17/17 04:10 Venous Blood Potassium 3.2 mmol/L (3.6-5.2) L 03/16/17 14:50 Urine Color Yellow (YELLOW) 03/16/17 15:10 Urine Appearance Clear (CLEAR) 03/16/17 15:10 Urine pH 6.0 (4.7-8.0) 03/16/17 15:10 Ur Specific [place] 1.010 (1.005-1.035) 03/16/17 15:10 Urine Protein Negative mg/dL (<30 mg/dL) 03/16/17 15:10 Urine Glucose (UA) Negative mg/dL (NEGATIVE) 03/16/17 15:10 Urine Ketones Negative mg/dL (NEGATIVE) 03/16/17 15:10 Urine Blood Negative (NEGATIVE) 03/16/17 15:10 Urine Nitrate Negative (NEGATIVE) 03/16/17 15:10 Urine Bilirubin Negative (NEGATIVE) 03/16/17 15:10 Urine Urobilinogen 0.2 E.U./dL (<1 E.U./dL) 03/16/17 15:10 Ur Leukocyte Esterase Negative [place]/uL (NEGATIVE) 03/16/17 15:10 Influenza Typ A,B (EIA) Negative for flu a/b (NEGATIVE) 03/16/17 12:27 Ur L.pneumophila Ag Negative (NEGATIVE) 03/16/17 15:10 - Hospital Course Hospital Course: 87 yo female with PMH of CLL, a-fib, systolic CHF, and COPD called EMS due to shortness of breath. EMS found patient in respiratory distress and place on BIPAP. Pt was also found to be in atrial fibrillation with rapid ventricular rate. Pt was started on Cardizem drip and given IV abx for empiric pneumonia treatment. Patient was recently admitted earlier this month for choledocolithiasis. Hospital course was complicated by respiratory distress that was treated with BIPAP and lasix. Pt had echo done which showed LVEF of 27.9%, AR, MR, and pulmonary HTN. Patient was admitted to the ICU due to hypercapnic respiratory failure 2/2 systolic CHF exacerbation. Cardiology was consulted, recommendations were appreciated for rate control due to atrial fibrillation. During ICU course, patient required dobutamine due to decreasing DBP. Patient was treated medically and with BIPAP for her respiratory failure, in which she responded appropriately. During hospital course, patient improved well with medical management. Leukocytosis was stable and likely 2/2 to CLL rather than infection. Imaging was consistent with CHF exacerbation, as CXR showed perihilar opacity bilaterally, suspicious for pulmonary edema. Chest CT showed right lower lobe inflammation that may be related to bronchiectasis, bilateral pleural effusions. As pneumonia was ruled out, IV abx were stopped. Also, during hospital course INR became supratherapeutic. Coumadin was held and restarted when INR became therapeutic. PT evaluated patient and recommended TCU. Today, patient was seen and examined at bedside. No acute overnight events. Patient HR improved with cessation of albuterol and addition of atenolol. As patient is medically stable, she will be discharged to TCU for continued physical therapy. Discharge Diagnosis 1. Hypercapnic respiratory failure 2/2 systolic CHF exacerbation, resolved 2. Atrial fibrillation; RVR resolved 3. Leukocytosis 2/2 CLL 4. CASIE 2/2 hemodynamic changes, resolved 5. Hypotension, resolved 6. Lactic Acidosis, resolved Discharge Medications - Resume hospital course medications in TCU Discharge Exam - Head Exam Head Exam: NORMAL INSPECTION - Eye Exam Eye Exam: Normal appearance - ENT Exam ENT Exam: Normal Exam - Respiratory Exam Respiratory Exam: Clear to PA & Lateral. absent: Accessory Muscle Use, Rales, Rhonchi, Wheezes, Respiratory Distress - Cardiovascular Exam Cardiovascular Exam: RRR, +S1, +S2. absent: Diastolic murmur, Gallop, Rubs, Systolic Murmur - GI/Abdominal Exam GI & Abdominal Exam: Soft. absent: Distended, Guarding, Rebound, Tenderness - Extremities Exam Extremities exam: normal inspection - Neurological Exam Neurological exam: Alert, Oriented x3 - Psychiatric Exam Psychiatric exam: Normal Affect, Normal Mood - Skin Skin Exam: Dry, Intact, Normal Color, Warm Discharge Plan - Follow Up Plan Condition: CRITICAL Disposition: REHAB FACILITY/REHAB UNIT Instructions: Heart Failure (ED), Heart Failure (DC), Heart Failure (GEN), Pacemaker (DC), Pacemaker (GEN), Pulmonary Edema (DC), Pulmonary Edema (GEN), Ascites (DC), Ascites (GEN) Additional Instructions: Resume medications from hospital course in TCU Continue PT Referrals: Jac Clements MD [Primary Care Provider] -
[2017-03-20] MEDS: Digoxin 125 mcg (0.125 mg) Tab PO SCH (14:37)
[2017-03-20 14:55] VITALS: PULSE 105
[2017-03-20 18:17] VITALS: TEMP 98.2; O2SAT 99
--- NOTE | 2017-03-20 20:27 | PN ---
DATE: 03/20/2017 REASON FOR CONSULTATION AND FOLLOWUP: Acute pulmonary edema, congestive heart failure. SUBJECTIVE: The patient denies any chest pain, shortness of breath, or any palpitation, feels a lot better. PHYSICAL EXAMINATION: GENERAL: Not in apparent distress. VITAL SIGNS: Temperature afebrile, heart rate 91, blood pressure 100/55. HEENT: PERRLA. Extraocular muscles intact. NECK: Supple. No carotid bruits or thyromegaly. CHEST: Clear to auscultation. HEART: S1 and S2, regular. ABDOMEN: Soft. EXTREMITIES: Clubbing and cyanosis negative. LABORATORY DATA: Blood workup as follows; WBC 26.5, hemoglobin 11.5, hematocrit 37.7, platelets 306. Chemistry shows sodium 138, potassium 4.3, chloride 101, carbon dioxide 29, anion gap 12, BUN 30, and creatinine 1.0. IMPRESSION: Acute pulmonary edema; atrial fibrillation, chronic with controlled rate pneumonia; possible cardiomyopathy; chronic lymphocytic leukemia; chronic obstructive pulmonary disease; ejection fraction 35%; congestive heart failure secondary to acute on chronic left ventricular systolic dysfunction; mild to moderate aortic regurgitation, mild tricuspid regurgitation, pulmonary hypertension with systolic pressure of 55. RECOMMENDATION: Continue anticoagulation because of the chronic atrial fibrillation, goal is to keep INR between 2 to 2.5, today INR is 1.95, so we will restart Coumadin because it was 3.44 earlier, so it was on hold. Continue digoxin 0.125 mg. We will use low-dose Coumadin 3 mg from today. Continue p.o. Lasix. We will follow up with you. Coumadin to 3 mg from today. Thank you Dr. Paulino for providing us the opportunity in taking care of the patient, Mirian Amaral. Roselyn Nj MD
[2017-03-20 22:13] VITALS: BP 107/55; PULSE 96
== END 2017-03-20 22:38 | DRG 291 ==
LOC: ED 11:00 → ERH 11:59 → ICU 13:32 → 3RSO 03-17 15:37
PROVIDERS: ADMIT Hospitalist; ATTEND Hospitalist
PROC: 5A09457 Assistance with Respiratory Ventilation, 24-96 Consecutive Hours, Continuous Positive Airway Pressure (ICD-10-PCS; principal; 2017-03-16)
PROC: 3E0F7GC Introduction of Other Therapeutic Substance into Respiratory Tract, Via Natural or Artificial Opening (ICD-10-PCS; 2017-03-16)
DX: I11.0 Hypertensive heart disease with heart failure (principal); J96.02 Acute respiratory failure with hypercapnia; J96.01 Acute respiratory failure with hypoxia; E87.2 Acidosis; N17.9 Acute kidney failure, unspecified; C91.10 Chronic lymphocytic leukemia of B-cell type not having achieved remission; I27.20 Pulmonary hypertension, unspecified; I50.23 Acute on chronic systolic (congestive) heart failure; I48.2 Chronic atrial fibrillation; I42.9 Cardiomyopathy, unspecified; I08.3 Combined rheumatic disorders of mitral, aortic and tricuspid valves; J44.9 Chronic obstructive pulmonary disease, unspecified; E78.00 Pure hypercholesterolemia, unspecified; R79.1 Abnormal coagulation profile; Z66 Do not resuscitate; F17.210 Nicotine dependence, cigarettes, uncomplicated; Z79.01 Long term (current) use of anticoagulants; Z87.01 Personal history of pneumonia (recurrent); Z90.49 Acquired absence of other specified parts of digestive tract

== ENCOUNTER 2017-03-20 22:38 | Inpatient (IN) | payer OTHER, MEDICARE ==
[2017-03-20 23:11] VITALS: BMI 19.9
[2017-03-21] MEDS: Ipratropium 0.02% Inhal Soln (0.5 mg/2.5 ml) UD IH SCH ×4 (02:14→20:12)
[2017-03-21] MEDS: Pantoprazole 40 mg EC Tab PO SCH (05:58)
--- NOTE | 2017-03-21 12:03 | CP.PCM.HP ---
<Fredrick Torres - Last Filed: 03/21/17 13:48> History of Present Illness - History of Present Illness History of Present Illness: Patient is an 87 year old female with a past medical history of chronic lymphocytic leukemia, atrial fibrillation, systolic CHF, and COPD who was admitted to [facility] with complaints of dyspnea. When patient was evaluated by emergency medical services, she was found to be hypercapnic hypercapnic respiratory failure 2/2 systolic CHF exacerbation for which BiPAP was provided. Upon arrival to [facility] patient was found to be in atrial fibrillation with rapid ventricular rate for which required intensive care unit transfer where cardizem IV drip was started. CT chest was ordered and revealed bilateral pleural effusions with minimal passive compressive atelectatic changes in right posterior lung bases. Hospital visit included respiratory distress which was treated with BIPAP and lasix. Patient had echocardiogram done which showed LVEF of 27.9%, AR, MR, and pulmonary hypertension. Patient was admitted to the ICU due to hypercapnic respiratory failure secondary to systolic CHF exacerbation. Cardiology was consulted, recommendations were appreciated for rate control due to atrial fibrillation. During ICU course, patient required dobutamine due to decreasing diastolic blood pressure. During hospital course, patient improved well with medical management. Since pneumonia was ruled out, IV antibiotics were stopped. Physical therapy evaluated patient and recommended TCU. Patient has now been transferred to TCU where she will continue to receive physical therapy. Present on Admission - Present on Admission Any Indicators Present on Admission: No Review of Systems - Constitutional Constitutional: absent: Chills, Fever, Headache - EENT Eyes: absent: Blurred Vision, Change in Vision Nose/Mouth/Throat: absent: Epistaxis, Nasal Congestion - Respiratory Respiratory: absent: Cough, Dyspnea - Gastrointestinal Gastrointestinal: absent: Abdominal Pain, Dysphagia, Nausea, Vomiting - Genitourinary Genitourinary: absent: Dysuria, Pyuria - Musculoskeletal Musculoskeletal: absent: Abnormal Gait, Back Pain - Integumentary Integumentary: absent: Acne, Alopecia - Neurological Neurological: absent: Dizziness, Numbness, Syncope - Psychiatric Psychiatric: absent: Confusion, Depression - Endocrine Endocrine: absent: Fatigue, Palpitations Past Patient History - Infectious Disease Hx of Infectious Diseases: None - Past Social History Smoking Status: Never Smoked - CARDIAC Hx Cardiac Disorders: Yes Hx Congestive Heart Failure: Yes Hx Hypercholesterolemia: Yes Hx Hypertension: Yes - PULMONARY Hx Chronic Obstructive Pulmonary Disease (COPD): Yes - NEUROLOGICAL Hx Neurological Disorder: No - HEENT Hx HEENT Problems: No - RENAL Hx Chronic Kidney Disease: No - ENDOCRINE/METABOLIC Hx Endocrine Disorders: No - HEMATOLOGICAL/ONCOLOGICAL Hx Blood Disorders: Yes (blood transfusion) Hx Cancer: Yes (cll dx 2 yrs ago) Hx Chemotherapy: No Other/Comment: pt goes for checkuip with dr kelley every 3 months - INTEGUMENTARY Hx Dermatological Problems: No - MUSCULOSKELETAL/RHEUMATOLOGICAL Hx Falls: Yes (past) - GASTROINTESTINAL Hx Gastrointestinal Disorders: Yes (gastritis) Other/Comment: egd/eus/ercp 03/04/17 ballon extraction of cbd stones, abnormal liver function tests - GENITOURINARY/GYNECOLOGICAL Hx Genitourinary Disorders: Yes Other/Comment: pyelonephritis - PSYCHIATRIC Hx Psychophysiologic Disorder: No - SURGICAL HISTORY Hx Appendectomy: Yes Hx Cholecystectomy: Yes Other/Comment: tonsillectomy - ANESTHESIA Hx Anesthesia Reactions: No Meds Allergies/Adverse Reactions: Allergies Allergy/AdvReac Type Severity Reaction Status Date / Time No Known Allergies Allergy Verified 03/20/17 23:36 Physical Exam - Constitutional Appears: Non-toxic, No Acute Distress - Head Exam Head Exam: ATRAUMATIC, NORMAL INSPECTION, NORMOCEPHALIC - Eye Exam Eye Exam: EOMI, Normal appearance - ENT Exam ENT Exam: Mucous Membranes Moist, Normal Exam - Neck Exam Neck exam: Positive for: Normal Inspection - Respiratory Exam Respiratory Exam: Clear to Auscultation Bilateral, NORMAL BREATHING PATTERN - Cardiovascular Exam Cardiovascular Exam: REGULAR RHYTHM, +S1, +S2 - GI/Abdominal Exam GI & Abdominal Exam: Normal Bowel Sounds, Soft - Rectal Exam Rectal Exam: NORMAL INSPECTION - Extremities Exam Extremities exam: Positive for: normal inspection - Back Exam Back exam: NORMAL INSPECTION - Neurological Exam Neurological exam: Alert, CN II-XII Intact, Oriented x3 - Psychiatric Exam Psychiatric exam: Normal Affect, Normal Mood - Skin Skin Exam: Intact, Normal Color, Warm Results - Vital Signs Recent Vital Signs: Last Vital Signs Temp 98.1 F 03/21/17 06:00 Pulse 60 03/21/17 10:45 Resp 16 03/21/17 06:00 BP 132/61 03/21/17 10:46 Pulse Ox 99 03/21/17 06:00 - Labs Result Diagrams: 03/21/17 12:00 03/21/17 12:00 Assessment & Plan - Assessment and Plan (Free Text) Assessment: 87 yo F with PMH of CLL, A-fib, systolic CHF, and COPD presents with shortness of breath admitted for evaluation and treatment for hypercapnic respiratory failure 2/2 CHF exacerbation. Plan: 1. Hypercapnic respiratory failure 2/2 systolic CHF exacerbation, deconditioned -Cardio consulted -CXR showed perihilar opacity bilaterally, suspicious for pulmonary edema Repeat CXR shows no active disease -Chest CT showed right lower lobe inflammation that may be related to bronchiectasis, bilateral pleural effusions No signs of consolidation -Cultures, Legionella, Flu negative -Cont Lasix, Lisinopril, Aldactone -Ipratropium -PT eval and treat, OOB with assistance as tolerated. Transfer to TCU approved; patient will benefit for continued medical therapy as well as physical therapy to help functional mobility 2. Atrial-fibrillation with RVR - Cont Digoxin and Verapamil - Restart coumadin, INR now subtherapeutic will add lovenox to bridge 3. Leukocytosis - WBC increased however patient is clinically improved, will continue to monitor - Likely due to h/o CLL - Procal 1. - Cultures negative final no growth after 5 days - Legionella, Flu negative 4. Hypertension - BP currently stable GI/DVT ppx - Coumadin/Lovenox - Protonix <Brad Monk - Last Filed: 03/21/17 14:40> Results - Vital Signs Recent Vital Signs: Last Vital Signs Temp 98.1 F 03/21/17 06:00 Pulse 60 03/21/17 10:45 Resp 16 03/21/17 06:00 BP 132/61 03/21/17 10:46 Pulse Ox 99 03/21/17 06:00 - Labs Result Diagrams: 03/21/17 12:00 03/21/17 12:00 Labs: Laboratory Results - last 24 hr 03/21/17 03/21/17 03/21/17 12:00 12:00 12:00 WBC 31.7 H* RBC 4.10 Hgb 11.7 L Hct 37.7 MCV 92.0 MCH 28.5 MCHC 31.0 RDW 14.3 Plt Count 266 MPV 11.1 H Gran % 13.6 L Lymph % (Auto) 83.0 H [place] % (Auto) 2.3 Eos % (Auto) 0.9 L Baso % (Auto) 0.2 Gran # 4.33 Lymph # 26.3 H [place] # 0.7 H Eos # 0.3 Baso # 0.05 Neutrophils % (Manual) 10 L Lymphocytes % (Manual) 85 H Monocytes % (Manual) 2 Eosinophils % (Manual) 3 Platelet Evaluation Normal Large Platelets Present Poikilocytosis (manual Slight Anisocytosis (manual) Slight PT 17.5 H INR 1.58 H Sodium 141 Potassium 4.2 Chloride 100 Carbon Dioxide 34 H Anion Gap 10 BUN 33 H Creatinine 1.0 Est GFR ( Amer) > 60 Est GFR (Non-Af Amer) 52 Random Glucose 113 H Calcium 9.2 Total Bilirubin 0.8 AST 25 ALT 47 Alkaline Phosphatase 78 Total Protein 6.1 Albumin 3.6 Globulin 2.5 Albumin/Globulin Ratio 1.4 Attending/Attestation - Attestation I have personally seen and examined this patient.: Yes I have fully participated in the care of the patient.: Yes I have reviewed all pertinent clinical information: Yes Notes (Text): 03/21/17 14:38 attending note; Patient seen and examined with resident in TCU. Patient is alert, awake and oriented. Denies any chest pain, shortness of breath. Doing physical therapy. Patient is a 87 year old female with past medical history of congestive heart failure with systolic dysfunction EF 30%, chronic atrial fibrillation on oral anticoagulation with Coumadin, chronic lymphocytic leukemia is admitted with hypercapnic Respiratory failure due to acute on chronic CHF exacerbation. currently improved respiratory status. continue physical therapy in TCU. Leukocytosis; secondary to chronic CLL. WBC between 25-30 for the past few years as per her oncologist. Atrial fibrillation; currently rate controlled. monitor INR. Currently on Lovenox bridging therapy and Coumadin. acute renal insufficiency;resolved. Patient is DNI DNR. upon discharge the patient will follow-up with PMD . 03/21/17 14:40
[2017-03-21 12:15] LABS: BASO # 0.05 K/mm3 (0.0-2.0); BASO % 0.2 % (0.0-3.0); EOS # 0.3 (0.0-0.7); EOS % 0.9 % (1.5-5.0); GRAN # 4.33 (1.4-6.5); GRAN % 13.6 % (50.0-68.0); HEMOGLOBIN 11.7 g/dL (12.0-16.0); LYMPH # 26.3 (1.2-3.4); MEAN CORPUSCULAR HEMOGLOBIN 28.5 pg (25.0-35.0); MEAN PLATELET VOLUME 11.1 fl (7.0-11.0); MONO # 0.7 (0.1-0.6); MONO % 2.3 % (1.0-6.0); PLATELET COUNT 266 10^3/uL (120.0-450.0); RED CELL DISTRIBUTION WIDTH 14.3 % (11.5-14.5)
[2017-03-21 12:21] LABS: WHITE BLOOD COUNT 31.7 10^3/ul (4.5-11.0)
[2017-03-21 12:22] LABS: INR 1.58 (0.93-1.08); PROTHROMBIN TIME 17.5 SECONDS (9.4-12.5)
[2017-03-21 12:36] LABS: ALB/GLOB RATIO 1.4 (1.1-1.8); ALBUMIN 3.6 g/dL (3.0-4.8); ALT/SGPT 47 U/L (7-56); AST/SGOT 25 U/L (14-36); BLOOD UREA NITROGEN 33 mg/dL (7-21); CALCIUM 9.2 mg/dL (8.4-10.5); GFR AFRICAN-AMERICAN > 60; GFR NON-AFRICAN AMERICAN 52
[2017-03-21 12:40] LABS: EOSINOPHIL 3 % (0.0-3.0); LYMPHOCYTE 85 % (22.0-35.0); MONOCYTE 2 % (1.0-6.0); NEUTROPHIL 10 % (50.0-70.0)
[2017-03-21 12:41] LABS: ANISOCYTOSIS SLIGHT; LARGE PLATELETS PRESENT; PLATELET ESTIMATE NORMAL (NORMAL); POIKILOCYTOSIS SLIGHT
[2017-03-21] MEDS ORDERED: Enoxaparin 30 mg Syringe SC SCH (13:46)
[2017-03-21] MEDS ORDERED: Enoxaparin 60 mg Syringe SC ONE (14:00)
[2017-03-21] MEDS: Digoxin 125 mcg (0.125 mg) Tab PO SCH (14:22)
[2017-03-21] MEDS ORDERED: Enoxaparin 60 mg Syringe SC SCH ×2 (22:00)
[2017-03-21] MEDS: Enoxaparin 40 mg Syringe SC SCH (22:46)
[2017-03-22] MEDS: Ipratropium 0.02% Inhal Soln (0.5 mg/2.5 ml) UD IH SCH ×4 (03:25→22:30)
[2017-03-22] MEDS: Pantoprazole 40 mg EC Tab PO SCH (06:11)
[2017-03-22] MEDS: Enoxaparin 40 mg Syringe SC SCH ×2 (10:10→21:26)
[2017-03-22] MEDS: Digoxin 125 mcg (0.125 mg) Tab PO SCH (14:42)
[2017-03-23] MEDS: Ipratropium 0.02% Inhal Soln (0.5 mg/2.5 ml) UD IH SCH ×4 (03:37→21:56)
[2017-03-23] MEDS: Pantoprazole 40 mg EC Tab PO SCH (05:40)
[2017-03-23 07:40] LABS: BASO # 0.05 K/mm3 (0.0-2.0); BASO % 0.2 % (0.0-3.0); EOS # 0.3 (0.0-0.7); EOS % 0.9 % (1.5-5.0); GRAN # 3.74 (1.4-6.5); GRAN % 12.4 % (50.0-68.0); HEMOGLOBIN 11.6 g/dL (12.0-16.0); LYMPH # 25.1 (1.2-3.4); LYMPH % 83.8 % (22.0-35.0); MEAN CELL VOLUME 91.3 fl (80.0-105.0); MEAN CORPUSCULAR HEMOGLOBIN 27.9 pg (25.0-35.0); MEAN CORPUSCULAR HGB CONC 30.5 g/dl (31.0-37.0); MEAN PLATELET VOLUME 11.8 fl (7.0-11.0); MONO # 0.8 (0.1-0.6); MONO % 2.7 % (1.0-6.0); RBC 4.16 10^6/uL (3.5-6.1); RED CELL DISTRIBUTION WIDTH 14.3 % (11.5-14.5)
[2017-03-23 07:54] LABS: INR 1.81 (0.93-1.08); PROTHROMBIN TIME 20.2 SECONDS (9.4-12.5)
--- NOTE | 2017-03-23 08:24 | CP.PCM.PN ---
<Maritza Tobias - Last Filed: 03/23/17 14:23> Subjective - Date & Time of Evaluation Date of Evaluation: 03/23/17 Time of Evaluation: 10:00 - Subjective Subjective: PGY2 medicine note for Dr. Jaimes Patient seen and examined OOB to chair. Nursing reports no acute events overnight. Patient was resting comfortably and denied acute complaints of headache, dizziness, chest pain, palpitations, SOB, cough, abd pain, nausea, vomiting, bowel/bladder complaints, pain/swelling in legs bilaterally. Objective - Vital Signs/Intake and Output Vital Signs (last 24 hours): Temp Pulse Resp BP Pulse Ox 97.9 F 118 H 16 101/59 L 96 03/23/17 06:00 03/23/17 06:00 03/23/17 06:00 03/23/17 06:00 03/23/17 06:00 - Medications Medications: Current Medications Atenolol (Tenormin) 12.5 mg PO DAILY [facility] Last Admin: 03/22/17 10:09 Dose: Not Given Digoxin (Lanoxin) 0.125 mg PO 1400 [facility] Last Admin: 03/22/17 14:42 Dose: 0.125 mg Enoxaparin Sodium (Lovenox) 40 mg SC Q12 [facility] Last Admin: 03/22/17 21:26 Dose: 40 mg Furosemide (Lasix) 40 mg PO DAILY [facility] Last Admin: 03/22/17 10:08 Dose: 40 mg Ipratropium Pennock (Atrovent) 0.5 mg IH [id number] [facility] Last Admin: 03/23/17 07:44 Dose: 0.5 mg Lisinopril (Zestril) 2.5 mg PO DAILY [facility] Last Admin: 03/22/17 10:10 Dose: 2.5 mg Pantoprazole Sodium (Protonix Ec Tab) 40 mg PO 0600 [facility] Last Admin: 03/23/17 05:40 Dose: 40 mg Spironolactone (Aldactone) 25 mg PO DAILY [facility] Last Admin: 03/22/17 10:08 Dose: 25 mg Verapamil HCl (Calan Tab) 40 mg PO 0600,1400,2200 [facility] Last Admin: 03/23/17 05:36 Dose: 40 mg Warfarin Sodium (Coumadin) 5 mg PO 1800 [facility] PRN Reason: Protocol Last Admin: 03/22/17 17:28 Dose: 5 mg - Labs Labs: 03/23/17 06:30 03/21/17 12:00 PT 20.2 SECONDS (9.4-12.5) H 03/23/17 06:30 INR 1.81 (0.93-1.08) H 03/23/17 06:30 - Constitutional Appears: Non-toxic, No Acute Distress - Head Exam Head Exam: ATRAUMATIC, NORMAL INSPECTION, NORMOCEPHALIC - Eye Exam Eye Exam: EOMI, Normal appearance. absent: Conjunctival injection, Scleral icterus - ENT Exam ENT Exam: Mucous Membranes Moist - Neck Exam Neck Exam: Full ROM, Normal Inspection - Respiratory Exam Respiratory Exam: Clear to Ausculation Bilateral, NORMAL BREATHING PATTERN. absent: Accessory Muscle Use, Rales, Rhonchi, Wheezes, Respiratory Distress - Cardiovascular Exam Cardiovascular Exam: Irregular Rhythm, +S1, +S2. absent: Bradycardia, Tachycardia, Murmur - GI/Abdominal Exam GI & Abdominal Exam: Soft, Normal Bowel Sounds. absent: Firm, Guarding, Rigid, Tenderness - Extremities Exam Extremities Exam: Normal Capillary Refill, Normal Inspection. absent: Pedal Edema, Tenderness - Back Exam Back Exam: NORMAL INSPECTION. absent: rash noted - Neurological Exam Neurological Exam: Alert, Awake, Oriented x3 - Psychiatric Exam Psychiatric exam: Normal Affect, Normal Mood - Skin Skin Exam: Dry, Intact, Normal Color, Warm Assessment and Plan - Assessment and Plan (Free Text) Assessment: 87 yo female PMHx CLL, A-fib, systolic CHF, and COPD who was admitted to [facility] with SOB and treated for hypercapnic respiratory failure 2/2 CHF exacerbation. Patient transferred to TCU for physical therapy and medical management. Plan: Hypercapnic respiratory failure 2/2 systolic CHF exacerbation - Respiratory failure resolved - CXR: Perihilar opacity bilaterally, suspicious for pulmonary edema Repeat CXR: NAD - Chest CT: Right lower lobe inflammation that may be related to bronchiectasis , bilateral pleural effusions No signs of consolidation - Cultures, Legionella, Flu negative - Continue Lasix, Lisinopril, Aldactone, and Ipratropium - Cardio Dr. Nj consulted - PT on board Atrial-fibrillation with RVR - HR in 90s overnight - continue Digoxin, Atenolol, and Verapamil - Coumadin 5mg and Lovenox to bridge Leukocytosis - WBC increased however patient is clinically improved, will continue to monitor - Likely due to h/o CLL - Procal 1.23 - Cultures negative final no growth after 5 days - Legionella, Flu negative Hx of Hypertension - BP currently stable - continue regimen GI/DVT ppx - Coumadin/Lovenox - Protonix Discussed with Dr. Fiona Tobias PGY2 <Seth Jaimes - Last Filed: 03/23/17 18:59> Objective - Vital Signs/Intake and Output Vital Signs (last 24 hours): Temp Pulse Resp BP Pulse Ox 97 F L 113 H 16 116/76 97 03/23/17 11:45 03/23/17 14:25 03/23/17 11:45 03/23/17 14:25 03/23/17 12:02 - Medications Medications: Current Medications Atenolol (Tenormin) 12.5 mg PO DAILY [facility] Last Admin: 03/23/17 10:28 Dose: 12.5 mg Digoxin (Lanoxin) 0.125 mg PO 1400 [facility] Last Admin: 03/23/17 14:28 Dose: 0.125 mg Enoxaparin Sodium (Lovenox) 40 mg SC Q12 [facility] Last Admin: 03/23/17 10:05 Dose: 40 mg Furosemide (Lasix) 40 mg PO DAILY [facility] Last Admin: 03/23/17 10:27 Dose: 40 mg Ipratropium Pennock (Atrovent) 0.5 mg IH [id number] [facility] Last Admin: 03/23/17 13:42 Dose: 0.5 mg Lisinopril (Zestril) 2.5 mg PO DAILY [facility] Last Admin: 03/23/17 10:28 Dose: 2.5 mg Pantoprazole Sodium (Protonix Ec Tab) 40 mg PO 0600 [facility] Last Admin: 03/23/17 05:40 Dose: 40 mg Spironolactone (Aldactone) 25 mg PO DAILY [facility] Last Admin: 03/23/17 10:05 Dose: 25 mg Verapamil HCl (Calan Tab) 40 mg PO 0600,1400,2200 [facility] Last Admin: 03/23/17 14:25 Dose: 40 mg Warfarin Sodium (Coumadin) 5 mg PO 1800 [facility] PRN Reason: Protocol Last Admin: 03/23/17 17:25 Dose: 5 mg - Labs Labs: 03/23/17 06:30 03/21/17 12:00 PT 20.2 SECONDS (9.4-12.5) H 03/23/17 06:30 INR 1.81 (0.93-1.08) H 03/23/17 06:30 Attending/Attestation - Attestation I have personally seen and examined this patient.: Yes I have fully participated in the care of the patient.: Yes I have reviewed all pertinent clinical information, including history, physical exam and plan: Yes Notes (Text): I have seen and examined the patient at bedside. Agree with the above additions / exceptions: Briefly this is 87 year old with history of CHF with systolic dysfunction (EF30%), chronic atrial fibrillation on anticoagulation, CLL who presented with hypercapneic respiratory failure due to acute on chronic CHF exacerbation. Patient feels comfortable and denies any complaints. Continue PT. Leukocytosis is secondary to CLL. Continue coumadin and lovenox until INR is therapeutic. Patient is DNI DNR. Upon discharge the patient will follow-up with PMD . Dr Seth Jaimes
[2017-03-23] MEDS: Enoxaparin 40 mg Syringe SC SCH ×2 (10:05→21:18)
[2017-03-23] MEDS: Digoxin 125 mcg (0.125 mg) Tab PO SCH (14:28)
[2017-03-24] MEDS: Ipratropium 0.02% Inhal Soln (0.5 mg/2.5 ml) UD IH SCH ×4 (03:15→20:00)
[2017-03-24] MEDS: Pantoprazole 40 mg EC Tab PO SCH (05:53)
[2017-03-24] MEDS: Enoxaparin 40 mg Syringe SC SCH ×2 (10:26→22:08)
[2017-03-24] MEDS: Digoxin 125 mcg (0.125 mg) Tab PO SCH (14:13)
--- NOTE | 2017-03-24 21:23 | CON ---
DATE: 03/24/2017 REASON FOR CONSULTATION: Continuity of the care in Transitional Care Unit, admitted with acute pulmonary edema, congestive heart failure in the floor. BRIEF CLINICAL HISTORY: This is an 87-year-old female with past medical history significant for chronic lymphocytic leukemia, history of chronic atrial fibrillation, congestive heart failure, cardiomyopathy with ejection fraction of 30%, came initially on 03/16/2017 with respiratory distress, treated with BiPAP, Lasix, IV Solu-Medrol, the patient stabilized. The patient initially admitted to ICU, later on transferred to the telemetry. The patient was found to be in atrial fibrillation with rapid ventricular rate, started on Cardizem drip, rate controlled. Now, the patient is transferred to TCU for continuity of care. Denies any chest pain, shortness of breath, or any palpitation. PAST MEDICAL HISTORY: Significant for history of pyelonephritis; history of atrial fibrillation; history of cardiomyopathy with ejection fraction last 25% to 37%; history of CLL; history of CHF; history of chronic atrial fibrillation, on anticoagulation. SOCIAL HISTORY: No history of smoking. CARDIAC WORKUP: Most recent cardiac workup as follows: The patient had an echocardiography done that showed ejection fraction of 27%, [id number] aortic regurgitation, moderate mitral regurgitation, severe pulmonary hypertension, and RV systolic pressure of 66. REVIEW OF SYSTEMS: As per HPI. CURRENT MEDICATIONS: The patient at home is taking Coumadin, verapamil, lisinopril, Lasix, and atenolol. Now, the patient in TCU taking atenolol 12.5 mg, lisinopril 2.5 mg, Enoxaparin 40 subcutaneous daily, Lasix 40 p.o., digoxin 0.125 daily, Coumadin 5 mg daily, spironolactone 25 b.i.d. and . PHYSICAL EXAMINATION: As follows. VITAL SIGNS: Temperature afebrile, heart rate 91, and blood pressure 120/65. HEENT: PERRLA. Extraocular muscles intact. NECK: Supple. No carotid bruit or thyromegaly. CHEST: Clear to auscultation. HEART: S1 and S2 regular. ABDOMEN: Soft. EXTREMITIES: Clubbing and cyanosis negative. LABORATORY DATA: Blood workup as follows: WBC 30, hemoglobin 11.6, hematocrit 38.0, and platelet count 280. Chemistry showed sodium 141, potassium 4.2, chloride 100, carbon dioxide 34, anion gap of 10, BUN 33, creatinine of 1.0. IMPRESSION: This is an 87-year-old female with past medical history of atrial fibrillation, chronic lymphocytic leukemia, acute pulmonary edema, admitted with pneumonia, cardiomyopathy, chronic lymphocytic leukemia, chronic obstructive pulmonary disease, [id number] aortic regurgitation, right ventricular systolic pressure of 66, moderate mitral regurgitation, severe pulmonary hypertension, severe tricuspid regurgitation, ejection fraction of 27%, atrial fibrillation with controlled heart rate. RECOMMENDATIONS: Continue anticoagulation, continue verapamil, continue Lasix, monitor INR, yesterday INR was 1.81. We will do the blood workup tomorrow and the goal is to keep INR between 2 to 2.5. Continue verapamil, continue gentle diuretics, continue deep venous thrombosis prophylaxis. We will discontinue Enoxaparin after today's dose and continue 2.5 mg of verapamil, continue atenolol, and continue digoxin. We will follow with you. Thank you for providing us the opportunity in taking care of the patient, Cristin. We will discontinue Lovenox after today's dose and follow up PT and INR tomorrow. Roselyn Nj MD
[2017-03-25] MEDS: Ipratropium 0.02% Inhal Soln (0.5 mg/2.5 ml) UD IH SCH ×4 (01:33→20:28)
[2017-03-25] MEDS: Pantoprazole 40 mg EC Tab PO SCH (05:43)
[2017-03-25 06:42] LABS: HEMOGLOBIN 11.6 g/dL (12.0-16.0); MEAN CELL VOLUME 91.4 fl (80.0-105.0); MEAN CORPUSCULAR HEMOGLOBIN 28.4 pg (25.0-35.0); MEAN CORPUSCULAR HGB CONC 31.1 g/dl (31.0-37.0); MEAN PLATELET VOLUME 11.8 fl (7.0-11.0); RBC 4.08 10^6/uL (3.5-6.1); RED CELL DISTRIBUTION WIDTH 14.4 % (11.5-14.5)
[2017-03-25 07:16] LABS: INR 2.9 (0.93-1.08); PROTHROMBIN TIME 32.6 SECONDS (9.4-12.5)
[2017-03-25 07:38] LABS: WHITE BLOOD COUNT 28.6 10^3/ul (4.5-11.0)
--- NOTE | 2017-03-25 09:50 | PN ---
DATE: 03/25/2017 REASON FOR CONSULTATION AND FOLLOWUP: Continuity of the care in Transitional Care Unit, admitted with acute pulmonary edema, congestive heart failure in the floor. SUBJECTIVE: The patient denies any chest pain, denies any shortness of breath, denies any palpitation. OBJECTIVE: GENERAL: Sitting in the chair, eating the breakfast, not in distress. VITAL SIGNS: As follows: Temperature afebrile, heart rate 110, and blood pressure 120/92. HEENT: PERRLA. Extraocular muscles intact. NECK: Supple. No carotid bruits or thyromegaly. CHEST: Clear to auscultation. HEART: S1 and S2. Regular. ABDOMEN: Soft. EXTREMITIES: Clubbing and cyanosis negative. LABORATORY DATA: Blood workup as follows: WBC 28.6, hemoglobin 11.6, hematocrit 37.3, and platelet count 243. Chemistry shows sodium 130, potassium 4.0, chloride 101, carbon dioxide 30, anion gap of 11, BUN 43, and creatinine 1.1. IMPRESSION: An 87-year-old female with past medical history significant for chronic lymphocytic leukemia, atrial fibrillation, congestive heart failure, cardiomyopathy with ejection fraction of 30%, came initially on 03/16/2017 with respiratory distress, treated with BiPAP, and Solu-Medrol and after being stabilized the patient is transferred to TCU. Denies any chest pain, shortness of breath, or any palpitation. Most recent echocardiogram showed an ejection fraction of 30%, [id number]-[id number] aortic regurgitation, moderate mitral regurgitation, severe pulmonary hypertension, and right ventricular systolic pressure of 66 mmHg. RECOMMENDATIONS: INR today is 2.9. We will hold anticoagulation. Continue verapamil. Continue digoxin. Continue atenolol 12.5. Continue Lasix. Continue lisinopril. Continue spironolactone. We will hold Coumadin today because of INR is elevated and it will go into supratherapeutic range tomorrow, if we continue at the same dose. We will repeat PT/INR tomorrow. Further recommendation depending upon the PT/INR. In the interim, continue digoxin, continue atenolol, continue verapamil, and continue diuretic. Discontinue Lovenox, as her INR is supratherapeutic. We will follow with you. Thank you Dr. Jaimes for providing us the opportunity in taking care of the patient, Mirian Alvarezrheaeber. Roselyn Nj MD
--- NOTE | 2017-03-25 13:11 | CP.PCM.PN ---
<Guille Elena - Last Filed: 03/25/17 13:03> Subjective - Date & Time of Evaluation Date of Evaluation: 03/25/17 Time of Evaluation: 13:04 - Subjective Subjective: Medicine Progress Note Pt seen and examined at bedside. No acute overnight events. Pt states that breathing is much improved, no SOB on exertion. Pt states that physical therapy is going well. Pt denied CP, SOB, nausea, vomiting, diarrhea, abdominal pain, fever, chills, FAUSTIN, or dizziness. Objective - Vital Signs/Intake and Output Vital Signs (last 24 hours): Temp Pulse Resp BP Pulse Ox 97.4 F L 63 16 119/71 98 03/25/17 10:00 03/25/17 10:48 03/25/17 10:00 03/25/17 10:48 03/25/17 10:00 Intake and Output: 03/25/17 03/25/17 06:59 18:59 Intake Total 420 Balance 420 - Medications Medications: Current Medications Atenolol (Tenormin) 12.5 mg PO DAILY [facility] Last Admin: 03/25/17 10:47 Dose: 12.5 mg Digoxin (Lanoxin) 0.125 mg PO 1400 [facility] Last Admin: 03/24/17 14:13 Dose: Not Given Furosemide (Lasix) 40 mg PO DAILY [facility] Last Admin: 03/25/17 10:47 Dose: 40 mg Ipratropium Glidden (Atrovent) 0.5 mg IH [id number] [facility] Last Admin: 03/25/17 07:42 Dose: 0.5 mg Lisinopril (Zestril) 2.5 mg PO DAILY [facility] Last Admin: 03/25/17 10:48 Dose: 2.5 mg Pantoprazole Sodium (Protonix Ec Tab) 40 mg PO 0600 [facility] Last Admin: 03/25/17 05:43 Dose: 40 mg Spironolactone (Aldactone) 25 mg PO DAILY [facility] Last Admin: 03/25/17 10:47 Dose: 25 mg Verapamil HCl (Calan Tab) 40 mg PO 0600,1400,2200 [facility] Last Admin: 03/25/17 05:43 Dose: 40 mg Warfarin Sodium (Coumadin) 5 mg PO 1800 [facility] PRN Reason: Protocol Last Admin: 03/24/17 17:56 Dose: 5 mg - Labs Labs: 03/25/17 06:00 03/25/17 06:00 PT 32.6 SECONDS (9.4-12.5) H 03/25/17 06:00 INR 2.90 (0.93-1.08) H 03/25/17 06:00 - Constitutional Appears: No Acute Distress - Head Exam Head Exam: NORMAL INSPECTION - Eye Exam Eye Exam: Normal appearance - ENT Exam ENT Exam: Normal Exam - Neck Exam Neck Exam: Normal Inspection - Respiratory Exam Respiratory Exam: Clear to Ausculation Bilateral. absent: Accessory Muscle Use , Rales, Rhonchi, Wheezes, Respiratory Distress - Cardiovascular Exam Cardiovascular Exam: RRR, +S1, +S2. absent: Gallop, Rubs, Murmur - GI/Abdominal Exam GI & Abdominal Exam: Soft. absent: Distended, Guarding, Tenderness, Rebound - Extremities Exam Extremities Exam: Normal Inspection - Back Exam Back Exam: NORMAL INSPECTION - Neurological Exam Neurological Exam: Alert, Awake, Oriented x3 - Psychiatric Exam Psychiatric exam: Normal Affect, Normal Mood - Skin Skin Exam: Dry, Intact, Normal Color, Warm Assessment and Plan - Assessment and Plan (Free Text) Assessment: 87 yo female PMHx CLL, A-fib, systolic CHF, and COPD who was admitted to [facility] with SOB and treated for hypercapnic respiratory failure 2/2 CHF exacerbation. Patient transferred to TCU for physical therapy and medical management. Plan: 1. Hypercapnic respiratory failure 2/2 systolic CHF exacerbation, resolved - Cardio consulted - Cont Physical therapy - Cultures, Legionella, Flu negative - Continue Lasix, Lisinopril, Aldactone, and Ipratropium - CXR: Perihilar opacity bilaterally, suspicious for pulmonary edema; Repeat CXR : NAD - Chest CT: Right lower lobe inflammation that may be related to bronchiectasis , bilateral pleural effusions; No signs of consolidation 2. Atrial fibrillation; RVR resolved - Continue Digoxin, Atenolol, and Verapamil - INR 2.90 Lovenox stopped Hold Coumadin today Reassess INR in AM, will resume when INR is therapeutic 3. Leukocytosis - Likely due to h/o CLL - Cont to monitor 4. Hx of Hypertension - BP currently stable - continue regimen GI/DVT ppx - Coumadin/Lovenox currently held - Protonix Pt seen and discussed in detail with Dr. Fiona Elena, PGY1 <Seth Jaimes B - Last Filed: 03/26/17 14:37> Objective - Vital Signs/Intake and Output Vital Signs (last 24 hours): Temp Pulse Resp BP Pulse Ox 97.4 F L 69 16 123/76 95 03/25/17 10:00 03/26/17 11:13 03/25/17 10:00 03/26/17 11:13 03/25/17 16:02 - Medications Medications: Current Medications Atenolol (Tenormin) 12.5 mg PO DAILY [facility] Last Admin: 03/26/17 11:00 Dose: 12.5 mg Digoxin (Lanoxin) 0.125 mg PO 1400 [facility] Last Admin: 03/25/17 15:16 Dose: 0.125 mg Furosemide (Lasix) 40 mg PO DAILY [facility] Last Admin: 03/26/17 11:00 Dose: 40 mg Ipratropium Glidden (Atrovent) 0.5 mg IH [id number] [facility] Last Admin: 03/26/17 13:15 Dose: 0.5 mg Lisinopril (Zestril) 2.5 mg PO DAILY [facility] Last Admin: 03/26/17 11:13 Dose: 2.5 mg Pantoprazole Sodium (Protonix Ec Tab) 40 mg PO 0600 [facility] Last Admin: 03/26/17 05:37 Dose: 40 mg Spironolactone (Aldactone) 25 mg PO DAILY [facility] Last Admin: 03/26/17 11:00 Dose: 25 mg Verapamil HCl (Calan Tab) 40 mg PO 0600,1400,2200 [facility] Last Admin: 03/26/17 05:35 Dose: Not Given Warfarin Sodium (Coumadin) 5 mg PO 1800 [facility] PRN Reason: Protocol Last Admin: 03/24/17 17:56 Dose: 5 mg - Labs Labs: 03/25/17 06:00 03/25/17 06:00 PT 27.7 SECONDS (9.4-12.5) H 03/26/17 05:30 INR 2.47 (0.93-1.08) H 03/26/17 05:30 Attending/Attestation - Attestation I have personally seen and examined this patient.: Yes I have fully participated in the care of the patient.: Yes I have reviewed all pertinent clinical information, including history, physical exam and plan: Yes Notes (Text): I have seen and examined the patient at bedside. Agree with the above additions / exceptions: Briefly this is 87 year old with history of CHF with systolic dysfunction (EF30%), chronic atrial fibrillation on anticoagulation, CLL who presented with hypercapneic respiratory failure due to acute on chronic CHF exacerbation. Patient feels comfortable and denies any complaints. Patient was seen in gym and has been participating in physical therapy. Leukocytosis is secondary to CLL. INR therapeutic. DC lovenox. Patient is DNI DNR. Upon discharge the patient will follow-up with PMD . Dr Seth Jaimes
[2017-03-25] MEDS: Digoxin 125 mcg (0.125 mg) Tab PO SCH (15:16)
[2017-03-26] MEDS: Ipratropium 0.02% Inhal Soln (0.5 mg/2.5 ml) UD IH SCH ×4 (02:03→20:50)
[2017-03-26] MEDS: Pantoprazole 40 mg EC Tab PO SCH (05:37)
[2017-03-26 06:39] LABS: INR 2.47 (0.93-1.08); PROTHROMBIN TIME 27.7 SECONDS (9.4-12.5)
[2017-03-26] MEDS: Digoxin 125 mcg (0.125 mg) Tab PO SCH (15:23)
--- NOTE | 2017-03-26 15:24 | PN ---
DATE: 03/26/2017 The patient is in room 320, bed 1. REASON FOR CONSULTATION: Acute pulmonary edema, congestive heart failure, deconditioning. SUBJECTIVE: The patient denies any chest pain, shortness of breath, or palpitations. The patient is sitting in chair comfortably. PHYSICAL EXAMINATION: VITAL SIGNS: Blood pressure 123/76, pulse 69, the patient is afebrile, respirations 20. HEENT: Head is normocephalic. Eyes, pupils are normal. Conjunctivae are slightly pale. NECK: JVP low. Carotids are equal. THORAX: AP diameter normal. LUNGS: No significant rales. CARDIOVASCULAR: S1 and S2. ABDOMEN: Soft. No tenderness. No organomegaly. EXTREMITIES: No clubbing. No cyanosis. LABORATORY DATA: WBC 28.6, hemoglobin 11.6, hematocrit 37.3, platelets 243. Sodium 138, potassium 4.0, BUN 43, creatinine 1.1, glucose 91, calcium 9.0. DIAGNOSES: Chronic lymphocytic leukemia, atrial fibrillation, congestive heart failure, cardiomyopathy, ejection fraction 30%. Initially, the patient was admitted on 03/16/2017 with respiratory distress, treated with Bilevel Positive Airway Pressure and Solu-Medrol and after being stabilized, the patient was transferred to the Transitional Care Unit. Most recent echo showed ejection fraction 30%, [id number] aortic regurgitation, moderate mitral regurgitation, severe pulmonary hypertension, right ventricular systolic pressure 66 mmHg. PLAN: Today's prothrombin time 27.7, INR 2.47. The patient is on spironolactone 25 daily, Atrovent nebulizer therapy, verapamil 40 mg t.i.d., warfarin 5 mg daily, digoxin 0.125 daily, furosemide 40 daily, Protonix 40 daily, atenolol 12.5 daily, Lisinopril 2.5 daily. We will continue present therapy. We will continue present medicine. We will continue physical therapy. Roselyn Garvey MD
[2017-03-27] MEDS: Ipratropium 0.02% Inhal Soln (0.5 mg/2.5 ml) UD IH SCH ×4 (01:19→20:03)
[2017-03-27] MEDS: Pantoprazole 40 mg EC Tab PO SCH (05:25)
[2017-03-27 07:19] LABS: HEMOGLOBIN 11.6 g/dL (12.0-16.0); MEAN CELL VOLUME 91.7 fl (80.0-105.0); MEAN CORPUSCULAR HEMOGLOBIN 28.4 pg (25.0-35.0); MEAN PLATELET VOLUME 12.5 fl (7.0-11.0); RBC 4.08 10^6/uL (3.5-6.1); RED CELL DISTRIBUTION WIDTH 14.6 % (11.5-14.5)
[2017-03-27 07:32] LABS: WHITE BLOOD COUNT 32.5 10^3/ul (4.5-11.0)
[2017-03-27 07:54] LABS: CALCIUM 9.1 mg/dL (8.4-10.5)
[2017-03-27 11:46] LABS: INR 1.73 (0.93-1.08); PARTIAL THROMBOPLASTIN TIME 32.6 Seconds (25.1-36.5); PROTHROMBIN TIME 19.3 SECONDS (9.4-12.5)
--- NOTE | 2017-03-27 12:40 | CP.PCM.PN ---
<Guille Elena - Last Filed: 03/27/17 12:37> Subjective - Date & Time of Evaluation Date of Evaluation: 03/27/17 Time of Evaluation: 12:37 - Subjective Subjective: Medicine Progress Note Pt seen and examined at bedside. No acute overnight events. Pt states reports no dyspnea. Pt states that physical therapy is going well. Pt denied CP, SOB, nausea, vomiting, diarrhea, abdominal pain, fever, chills, FAUSTIN, or dizziness. Objective - Vital Signs/Intake and Output Vital Signs (last 24 hours): Temp Pulse Resp BP Pulse Ox 97.8 F 47 L 12 144/44 L 100 03/27/17 11:30 03/27/17 11:30 03/27/17 11:30 03/27/17 11:30 03/26/17 18:00 - Medications Medications: Current Medications Atenolol (Tenormin) 12.5 mg PO DAILY [facility] Last Admin: 03/27/17 10:55 Dose: 12.5 mg Digoxin (Lanoxin) 0.125 mg PO 1400 [facility] Last Admin: 03/26/17 15:23 Dose: 0.125 mg Furosemide (Lasix) 40 mg PO DAILY [facility] Last Admin: 03/27/17 10:54 Dose: 40 mg Ipratropium [place] (Atrovent) 0.5 mg IH [id number] [facility] Last Admin: 03/27/17 07:45 Dose: 0.5 mg Lisinopril (Zestril) 2.5 mg PO DAILY [facility] Last Admin: 03/27/17 10:55 Dose: Not Given Pantoprazole Sodium (Protonix Ec Tab) 40 mg PO 0600 [facility] Last Admin: 03/27/17 05:25 Dose: 40 mg Spironolactone (Aldactone) 25 mg PO DAILY [facility] Last Admin: 03/27/17 10:26 Dose: 25 mg Verapamil HCl (Calan Tab) 40 mg PO 0600,1400,2200 [facility] Last Admin: 03/27/17 05:25 Dose: 40 mg Warfarin Sodium (Coumadin) 5 mg PO 1800 [facility] PRN Reason: Protocol Last Admin: 03/24/17 17:56 Dose: 5 mg - Labs Labs: 03/27/17 06:00 03/27/17 06:00 PT 19.3 SECONDS (9.4-12.5) H 03/27/17 11:00 INR 1.73 (0.93-1.08) H 03/27/17 11:00 APTT 32.6 Seconds (25.1-36.5) 03/27/17 11:00 - Constitutional Appears: No Acute Distress - Head Exam Head Exam: NORMAL INSPECTION - Eye Exam Eye Exam: Normal appearance - ENT Exam ENT Exam: Normal Exam - Respiratory Exam Respiratory Exam: Clear to Ausculation Bilateral. absent: Accessory Muscle Use , Rales, Rhonchi, Wheezes, Respiratory Distress - Cardiovascular Exam Cardiovascular Exam: RRR, +S1, +S2. absent: Gallop, Rubs, Murmur - GI/Abdominal Exam GI & Abdominal Exam: Soft. absent: Distended, Guarding, Tenderness, Rebound - Extremities Exam Extremities Exam: Normal Inspection - Neurological Exam Neurological Exam: Alert, Awake, Oriented x3 - Psychiatric Exam Psychiatric exam: Normal Affect, Normal Mood - Skin Skin Exam: Dry, Intact, Normal Color, Warm Assessment and Plan - Assessment and Plan (Free Text) Assessment: 87 yo female PMHx CLL, A-fib, systolic CHF, and COPD who was admitted to [facility] with SOB and treated for hypercapnic respiratory failure 2/2 CHF exacerbation. Patient transferred to TCU for physical therapy and further medical management. Plan: 1. Hypercapnic respiratory failure 2/2 systolic CHF exacerbation, resolved - Cardio consulted - Cont Physical therapy - Cultures, Legionella, Flu negative - Continue Lasix, Lisinopril, Aldactone, and Ipratropium - CXR: Perihilar opacity bilaterally, suspicious for pulmonary edema; Repeat CXR : NAD - Chest CT: Right lower lobe inflammation that may be related to bronchiectasis , bilateral pleural effusions; No signs of consolidation 2. Atrial fibrillation; RVR resolved - Continue Digoxin, Atenolol, and Verapamil - INR therapeutic Coumadin resumed Cont to monitor INR 3. Leukocytosis - Likely due to h/o CLL - Cont to monitor 4. Hx of Hypertension - BP currently stable - Continue regimen GI/DVT ppx - Coumadin - Protonix Pt seen and discussed in detail with Dr. Fiona Elena, PGY1 <Seth Jaimes - Last Filed: 03/27/17 14:08> Objective - Vital Signs/Intake and Output Vital Signs (last 24 hours): Temp Pulse Resp BP Pulse Ox 97.8 F 47 L 12 144/44 L 100 03/27/17 11:30 03/27/17 11:30 03/27/17 11:30 03/27/17 11:30 03/26/17 18:00 - Medications Medications: Current Medications Atenolol (Tenormin) 12.5 mg PO DAILY [facility] Last Admin: 03/27/17 10:55 Dose: 12.5 mg Digoxin (Lanoxin) 0.125 mg PO 1400 [facility] Last Admin: 03/26/17 15:23 Dose: 0.125 mg Furosemide (Lasix) 40 mg PO DAILY [facility] Last Admin: 03/27/17 10:54 Dose: 40 mg Ipratropium [place] (Atrovent) 0.5 mg IH [id number] [facility] Last Admin: 03/27/17 13:40 Dose: 0.5 mg Lisinopril (Zestril) 2.5 mg PO DAILY [facility] Last Admin: 03/27/17 10:55 Dose: Not Given Pantoprazole Sodium (Protonix Ec Tab) 40 mg PO 0600 [facility] Last Admin: 03/27/17 05:25 Dose: 40 mg Spironolactone (Aldactone) 25 mg PO DAILY [facility] Last Admin: 03/27/17 10:26 Dose: 25 mg Verapamil HCl (Calan Sr Tab) 120 mg PO DAILY [facility] Warfarin Sodium (Coumadin) 5 mg PO 1800 LUCIA PRN Reason: Protocol Last Admin: 03/24/17 17:56 Dose: 5 mg Warfarin Sodium (Coumadin) 2 mg PO 1800 ONE PRN Reason: Protocol Stop: 03/27/17 18:01 - Labs Labs: 03/27/17 06:00 03/27/17 06:00 PT 19.3 SECONDS (9.4-12.5) H 03/27/17 11:00 INR 1.73 (0.93-1.08) H 03/27/17 11:00 APTT 32.6 Seconds (25.1-36.5) 03/27/17 11:00 Attending/Attestation - Attestation I have personally seen and examined this patient.: Yes I have fully participated in the care of the patient.: Yes I have reviewed all pertinent clinical information, including history, physical exam and plan: Yes Notes (Text): I have seen and examined the patient at bedside. Agree with the above additions / exceptions: Briefly this is 87 year old with history of CHF with systolic dysfunction (EF30%), chronic atrial fibrillation on anticoagulation, CLL who presented with hypercapneic respiratory failure due to acute on chronic CHF exacerbation. Patient feels comfortable and denies any complaints. Patient was seen in gym again and has been participating in physical therapy. Leukocytosis is secondary to CLL. Continue coumadin. Patient is DNI DNR. Upon discharge the patient will follow-up with PMD . Dr Seth Jaimes
[2017-03-27] MEDS: Digoxin 125 mcg (0.125 mg) Tab PO SCH (15:03)
[2017-03-27] MEDS: Verapamil 120 mg ER Tab PO SCH (16:19)
[2017-03-27 16:21] VITALS: PULSE 78
[2017-03-27 16:38] VITALS: RESP 18
--- NOTE | 2017-03-27 18:11 | PN ---
DATE: 03/27/2017 The patient is in room 320, bed 1. REASON FOR CONSULTATION AND FOLLOWUP: Status post respiratory distress, cardiomyopathy, and deconditioning. SUBJECTIVE: The patient is sitting in chair without any cardiac symptoms like chest pain, shortness of breath, or palpitation. She is ambulating and getting physical therapy without cardiac symptoms. PHYSICAL EXAMINATION: VITAL SIGNS: Blood pressure 134/63, respirations 18, pulse 57, and temperature 97.8. HEENT: Head is normocephalic. Eyes, pupils are normal. Conjunctivae are slightly pale. NECK: JVP low. Carotids are equal. THORAX: AP diameter normal. LUNGS: No significant rales. CARDIOVASCULAR: S1 and S2. ABDOMEN: Soft. No tenderness. No organomegaly. EXTREMITIES: No clubbing. No cyanosis. LABORATORY DATA: WBC 32.5, hemoglobin 11.3, hematocrit 37.4, and platelets 211. Sodium 138, potassium 4.2, BUN 52, creatinine 1.2, random glucose 93, and calcium 9.1. DIAGNOSES: Chronic lymphocytic leukemia, atrial fibrillation, congestive heart failure due to cardiomyopathy, ejection fraction 30%. Initially, the patient was admitted on 03/16/2017 with respiratory distress, treated with bilevel positive airway pressure and Solu-Medrol. After being stabilized, the patient was transferred to the transitional care unit for deconditioning and physical therapy. Most recent echo showed ejection fraction 30%, [id number] aortic regurgitation, moderate mitral regurgitation, severe pulmonary hypertension, right ventricular systolic pressure of 66 mmHg. PLAN: The patient's today's prothrombin time 19.3, INR 1.73. The patient is on spironolactone 25 mg p.o. daily, verapamil 40 mg p.o. t.i.d., daily. The patient on warfarin 5 mg daily. We will give 2 mg extra dose today because INR is below therapeutic level, digoxin 0.125 p.o. daily, furosemide 40 p.o. daily, atenolol 12.5 mg p.o. daily, and Lisinopril 2.5 mg daily. We will continue physical therapy and we will follow. Roselyn Garvey MD
[2017-03-28] MEDS: Ipratropium 0.02% Inhal Soln (0.5 mg/2.5 ml) UD IH SCH ×2 (04:38→08:13)
[2017-03-28] MEDS: Pantoprazole 40 mg EC Tab PO SCH (05:52)
[2017-03-28 06:17] VITALS: TEMP 98.1; O2SAT 95
[2017-03-28 07:42] LABS: HEMOGLOBIN 11.4 g/dL (12.0-16.0); MEAN CELL VOLUME 91.2 fl (80.0-105.0); MEAN CORPUSCULAR HEMOGLOBIN 27.9 pg (25.0-35.0); MEAN CORPUSCULAR HGB CONC 30.6 g/dl (31.0-37.0); MEAN PLATELET VOLUME 12.2 fl (7.0-11.0); RBC 4.09 10^6/uL (3.5-6.1); RED CELL DISTRIBUTION WIDTH 14.3 % (11.5-14.5)
[2017-03-28 07:51] LABS: BLOOD UREA NITROGEN 47 mg/dL (7-21); CALCIUM 9.3 mg/dL (8.4-10.5); GFR AFRICAN-AMERICAN > 60; GFR NON-AFRICAN AMERICAN 52
[2017-03-28 08:15] LABS: PROTHROMBIN TIME 18.4 SECONDS (9.4-12.5)
[2017-03-28 08:16] LABS: INR 1.66 (0.93-1.08)
[2017-03-28 08:22] LABS: WHITE BLOOD COUNT 31.2 10^3/ul (4.5-11.0)
[2017-03-28] MEDS: Verapamil 120 mg ER Tab PO SCH (10:55)
[2017-03-28 10:59] VITALS: BP 128/79; PULSE 60
--- NOTE | 2017-03-28 11:35 | CP.PCM.DIS ---
<Guille Elena - Last Filed: 03/28/17 11:17> Provider - Provider Date of Admission: 03/20/17 22:38 Attending physician: Seth Jaimes MD Primary care physician: Jac Clements MD Consults: Cardio: Clem Time Spent in preparation of Discharge (in minutes): 45 Hospital Course - Lab Results Lab Results: Most Recent Lab Values WBC 31.2 10^3/ul (4.5-11.0) H* 03/28/17 07:00 RBC 4.09 10^6/uL (3.5-6.1) 03/28/17 07:00 Hgb 11.4 g/dL (12.0-16.0) L 03/28/17 07:00 Hct 37.3 % (36.0-48.0) 03/28/17 07:00 MCV 91.2 fl (80.0-105.0) 03/28/17 07:00 MCH 27.9 pg (25.0-35.0) 03/28/17 07:00 MCHC 30.6 g/dl (31.0-37.0) L 03/28/17 07:00 RDW 14.3 % (11.5-14.5) 03/28/17 07:00 Plt Count 206 10^3/uL (120.0-450.0) 03/28/17 07:00 MPV 12.2 fl (7.0-11.0) H 03/28/17 07:00 Gran % 12.4 % (50.0-68.0) L 03/23/17 06:30 Lymph % (Auto) 83.8 % (22.0-35.0) H 03/23/17 06:30 [place] % (Auto) 2.7 % (1.0-6.0) 03/23/17 06:30 Eos % (Auto) 0.9 % (1.5-5.0) L 03/23/17 06:30 Baso % (Auto) 0.2 % (0.0-3.0) 03/23/17 06:30 Gran # 3.74 (1.4-6.5) 03/23/17 06:30 Lymph # 25.1 (1.2-3.4) H 03/23/17 06:30 [place] # 0.8 (0.1-0.6) H 03/23/17 06:30 Eos # 0.3 (0.0-0.7) 03/23/17 06:30 Baso # 0.05 K/mm3 (0.0-2.0) 03/23/17 06:30 Neutrophils % (Manual) 10 % (50.0-70.0) L 03/21/17 12:00 Lymphocytes % (Manual) 85 % (22.0-35.0) H 03/21/17 12:00 Monocytes % (Manual) 2 % (1.0-6.0) 03/21/17 12:00 Eosinophils % (Manual) 3 % (0.0-3.0) 03/21/17 12:00 Platelet Evaluation Normal (NORMAL) 03/21/17 12:00 Large Platelets Present 03/21/17 12:00 Poikilocytosis (manual Slight 03/21/17 12:00 Anisocytosis (manual) Slight 03/21/17 12:00 PT 18.4 SECONDS (9.4-12.5) H 03/28/17 07:00 INR 1.66 (0.93-1.08) H 03/28/17 07:00 APTT 32.6 Seconds (25.1-36.5) 03/27/17 11:00 Sodium 138 mmol/L (132-148) 03/28/17 07:00 Potassium 4.3 mmol/L (3.6-5.0) 03/28/17 07:00 Chloride 103 mmol/L (98-107) 03/28/17 07:00 Carbon Dioxide 28 mmol/L (21-33) 03/28/17 07:00 Anion Gap 12 (10-20) 03/28/17 07:00 BUN 47 mg/dL (7-21) H 03/28/17 07:00 Creatinine 1.0 mg/dl (0.7-1.2) 03/28/17 07:00 Est GFR ( Amer) > 60 03/28/17 07:00 Est GFR (Non-Af Amer) 52 03/28/17 07:00 Random Glucose 94 mg/dL (70-110) 03/28/17 07:00 Calcium 9.3 mg/dL (8.4-10.5) 03/28/17 07:00 Total Bilirubin 0.8 mg/dL (0.2-1.3) 03/21/17 12:00 AST 25 U/L (14-36) 03/21/17 12:00 ALT 47 U/L (7-56) 03/21/17 12:00 Alkaline Phosphatase 78 U/L (38-126) 03/21/17 12:00 Total Protein 6.1 g/dL (5.8-8.3) 03/21/17 12:00 Albumin 3.6 g/dL (3.0-4.8) 03/21/17 12:00 Globulin 2.5 gm/dL 03/21/17 12:00 Albumin/Globulin Ratio 1.4 (1.1-1.8) 03/21/17 12:00 - Hospital Course Hospital Course: Patient is an 87 year old female with a past medical history of chronic lymphocytic leukemia, atrial fibrillation, systolic CHF, and COPD who was admitted to [facility] with complaints of dyspnea. Pt was found to be in hypercapnic respiratory failure 2/2 systolic CHF exacerbation for which BiPAP was provided. Patient was also in atrial fibrillation with rapid ventricular rate treated with IV cardizem drip. Patient was admitted to the ICU due to hypercapnic respiratory failure secondary to systolic CHF exacerbation. During ICU course, patient required dobutamine due to decreasing diastolic blood pressure. Pt stabilized and was transferred to the floor. During hospital course, respiratory distress which was treated with BIPAP and lasix. Patient had echocardiogram done which showed LVEF of 27.9%, AR, MR, and pulmonary hypertension. Cardiology was consulted, recommendations were appreciated for rate control due to atrial fibrillation. CT chest was ordered and revealed bilateral pleural effusions with minimal passive compressive atelectatic changes in right posterior lung bases. Since pneumonia was ruled out, IV antibiotics were stopped. Physical therapy evaluated patient and recommended TCU. Patient was transferred to TCU where she will continue to receive physical therapy. During TCU course, patient's leukocytosis remained stable and was consistent with her history of CLL. Coumadin was managed based on patient's INR. Cardiology continued to follow patient in TCU. Pt tolerated physical therapy well, PT recommended patient to be discharged home when TCU stay was complete. Today, patient was seen and examined at bedside. Pt denies CP, SOB, nausea, vomiting, diarrhea, abdominal pain, FAUSTIN or dizziness. As the patient is medically stable, she was discharged. Patient was given prescriptions for her medications and advised to follow up as an outpatient. Discharge Diagnosis 1. Hypercapnic respiratory failure 2/2 systolic CHF exacerbation, resolved 2. Atrial fibrillation; RVR resolved 3. Leukocytosis 2/2 CLL 4. Hypertension Discharge Medications - Atrovent 0.5 mg IH Q6resp - Atenolol 12.5 mg PO daily - Digoxin 0.125 mg PO daily - Lasix 40 mg PO daily - Lisinopril 2.5 mg PO daily - Aldactone 25 mg PO daily - Verapamil 120 mg PO daily - Coumadin 5 mg PO daily Discharge Exam - Head Exam Head Exam: NORMAL INSPECTION - Eye Exam Eye Exam: Normal appearance Pupil Exam: NORMAL ACCOMODATION - Neck Exam Neck exam: Normal Inspection - Respiratory Exam Respiratory Exam: Clear to PA & Lateral. absent: Rales, Rhonchi, Wheezes, Respiratory Distress - Cardiovascular Exam Cardiovascular Exam: RRR, +S1, +S2. absent: Diastolic murmur, Gallop, Rubs, Systolic Murmur - GI/Abdominal Exam GI & Abdominal Exam: Soft. absent: Distended, Guarding, Rebound, Tenderness - Extremities Exam Extremities exam: normal inspection - Neurological Exam Neurological exam: Alert, Oriented x3 - Psychiatric Exam Psychiatric exam: Normal Affect, Normal Mood - Skin Skin Exam: Dry, Intact, Normal Color, Warm Discharge Plan - Discharge Medications Prescriptions: Ipratropium 0.02% [Atrovent] 0.5 mg IH [id number] Days neb Atenolol [Tenormin] 12.5 mg PO DAILY #15 tab Digoxin [Lanoxin] 0.125 mg PO 1400 #15 tab Furosemide [Lasix] 40 mg PO DAILY #15 tab Lisinopril [Zestril] 2.5 mg PO DAILY #15 tab Spironolactone [Aldactone] 25 mg PO DAILY #15 tab Verapamil [Calan SR Tab] 120 mg PO DAILY #15 tab Warfarin [Coumadin] 5 mg PO DAILY #15 tab - Follow Up Plan Condition: GOOD Disposition: HOME/ ROUTINE Instructions: Heart Failure (DC), Pacemaker (DC), Pulmonary Edema (DC), Ascites (DC) Additional Instructions: 1. Follow up with PMD within 1 week 2. Follow up with Load Test Mechanic within 1 week 3. Follow up with Oncologist as scheduled 4. Take new medications as prescribed 5. Resume home medications per discharge instructions 6. Return to ED if symptoms worsen Referrals: Roselyn Nj MD [Staff Provider] - Jac Clements MD [Primary Care Provider] - <Seth Jaimes - Last Filed: 03/28/17 14:49> Provider - Provider Date of Admission: 03/20/17 22:38 Attending physician: Seth Jaimes MD Primary care physician: Jac Clements MD Hospital Course - Lab Results Lab Results: Most Recent Lab Values WBC 31.2 10^3/ul (4.5-11.0) H* 03/28/17 07:00 RBC 4.09 10^6/uL (3.5-6.1) 03/28/17 07:00 Hgb 11.4 g/dL (12.0-16.0) L 03/28/17 07:00 Hct 37.3 % (36.0-48.0) 03/28/17 07:00 MCV 91.2 fl (80.0-105.0) 03/28/17 07:00 MCH 27.9 pg (25.0-35.0) 03/28/17 07:00 MCHC 30.6 g/dl (31.0-37.0) L 03/28/17 07:00 RDW 14.3 % (11.5-14.5) 03/28/17 07:00 Plt Count 206 10^3/uL (120.0-450.0) 03/28/17 07:00 MPV 12.2 fl (7.0-11.0) H 03/28/17 07:00 Gran % 12.4 % (50.0-68.0) L 03/23/17 06:30 Lymph % (Auto) 83.8 % (22.0-35.0) H 03/23/17 06:30 [place] % (Auto) 2.7 % (1.0-6.0) 03/23/17 06:30 Eos % (Auto) 0.9 % (1.5-5.0) L 03/23/17 06:30 Baso % (Auto) 0.2 % (0.0-3.0) 03/23/17 06:30 Gran # 3.74 (1.4-6.5) 03/23/17 06:30 Lymph # 25.1 (1.2-3.4) H 03/23/17 06:30 [place] # 0.8 (0.1-0.6) H 03/23/17 06:30 Eos # 0.3 (0.0-0.7) 03/23/17 06:30 Baso # 0.05 K/mm3 (0.0-2.0) 03/23/17 06:30 Neutrophils % (Manual) 10 % (50.0-70.0) L 03/21/17 12:00 Lymphocytes % (Manual) 85 % (22.0-35.0) H 03/21/17 12:00 Monocytes % (Manual) 2 % (1.0-6.0) 03/21/17 12:00 Eosinophils % (Manual) 3 % (0.0-3.0) 03/21/17 12:00 Platelet Evaluation Normal (NORMAL) 03/21/17 12:00 Large Platelets Present 03/21/17 12:00 Poikilocytosis (manual Slight 03/21/17 12:00 Anisocytosis (manual) Slight 03/21/17 12:00 PT 18.4 SECONDS (9.4-12.5) H 03/28/17 07:00 INR 1.66 (0.93-1.08) H 03/28/17 07:00 APTT 32.6 Seconds (25.1-36.5) 03/27/17 11:00 Sodium 138 mmol/L (132-148) 03/28/17 07:00 Potassium 4.3 mmol/L (3.6-5.0) 03/28/17 07:00 Chloride 103 mmol/L (98-107) 03/28/17 07:00 Carbon Dioxide 28 mmol/L (21-33) 03/28/17 07:00 Anion Gap 12 (10-20) 03/28/17 07:00 BUN 47 mg/dL (7-21) H 03/28/17 07:00 Creatinine 1.0 mg/dl (0.7-1.2) 03/28/17 07:00 Est GFR ( Amer) > 60 03/28/17 07:00 Est GFR (Non-Af Amer) 52 03/28/17 07:00 Random Glucose 94 mg/dL (70-110) 03/28/17 07:00 Calcium 9.3 mg/dL (8.4-10.5) 03/28/17 07:00 Total Bilirubin 0.8 mg/dL (0.2-1.3) 03/21/17 12:00 AST 25 U/L (14-36) 03/21/17 12:00 ALT 47 U/L (7-56) 03/21/17 12:00 Alkaline Phosphatase 78 U/L (38-126) 03/21/17 12:00 Total Protein 6.1 g/dL (5.8-8.3) 03/21/17 12:00 Albumin 3.6 g/dL (3.0-4.8) 03/21/17 12:00 Globulin 2.5 gm/dL 03/21/17 12:00 Albumin/Globulin Ratio 1.4 (1.1-1.8) 03/21/17 12:00 Attending/Attestation - Attestation I have personally seen and examined this patient.: Yes I have fully participated in the care of the patient.: Yes I have reviewed all pertinent clinical information, including history, physical exam and plan: Yes Notes (Text): I have seen and examined the patient at bedside. Agree with the above additions / exceptions: Briefly this is 87 year old with history of CHF with systolic dysfunction (EF30%), chronic atrial fibrillation on anticoagulation, CLL who presented with hypercapneic respiratory failure due to acute on chronic CHF exacerbation. Patient feels comfortable and denies any complaints. Patient was seen at bedside today and has been participating in physical therapy. Patient reports feeling good and is ready to go home. Leukocytosis is secondary to CLL. Continue coumadin. Advised patient to have INR check in 2 days. Patient states that she follows with Dr Flores for INR and it always fluctuates. Patient is DNI DNR. Upon discharge the patient will follow-up with PMD . Dr Seth Jaimes
== END 2017-03-28 11:23 | disposition home or self-care (01) | DRG 291 ==
LOC: TRCU 22:38
PROVIDERS: ADMIT Hospitalist; ATTEND Hospitalist
PROC: F07Z9FZ Gait Training/Functional Ambulation Treatment using Assistive, Adaptive, Supportive or Protective Equipment (ICD-10-PCS; principal; 2017-03-21)
PROC: F07M6ZZ Therapeutic Exercise Treatment of Musculoskeletal System - Whole Body (ICD-10-PCS; 2017-03-21)
PROC: F08Z1ZZ Dressing Techniques Treatment (ICD-10-PCS; 2017-03-21)
PROC: F08Z2ZZ Grooming/Personal Hygiene Treatment (ICD-10-PCS; 2017-03-21)
DX: I11.0 Hypertensive heart disease with heart failure (principal); J96.92 Respiratory failure, unspecified with hypercapnia; C91.10 Chronic lymphocytic leukemia of B-cell type not having achieved remission; I50.23 Acute on chronic systolic (congestive) heart failure; D72.829 Elevated white blood cell count, unspecified; E78.00 Pure hypercholesterolemia, unspecified; I08.3 Combined rheumatic disorders of mitral, aortic and tricuspid valves; I27.20 Pulmonary hypertension, unspecified; I42.9 Cardiomyopathy, unspecified; I48.2 Chronic atrial fibrillation; J44.9 Chronic obstructive pulmonary disease, unspecified; Z66 Do not resuscitate; Z79.01 Long term (current) use of anticoagulants; Z90.49 Acquired absence of other specified parts of digestive tract